=== PATIENT | male | born 1960 | race Two or more races ===

== ENCOUNTER 2021-09-07 19:40 | Inpatient (IN) | payer OTHER ==
[2021-09-07] MEDS ORDERED: SODIUM CHLORIDE 0.9% 1,000 ML IV STA (21:03)
--- NOTE | 2021-09-07 21:33 | XR ---
EXAMINATION TYPE: XR chest 2V DATE OF EXAM: 09/07/2021 COMPARISON: NONE HISTORY: Weakness TECHNIQUE: 2 view FINDINGS: There is a very large hiatal hernia. There is irregular 6 cm rounded infiltrate in the righ t midlung field. No heart failure seen. No pleural effusion. There are no hilar masses. No mediastina l adenopathy. IMPRESSION: Irregular large infiltrate in the right midlung is probably in the superior segment of th e right lower lobe. Follow-up is recommended to show clearing.
--- NOTE | 2021-09-07 22:22 | ED ---
Weakness HPI - General Source: patient Mode of arrival: ambulatory Limitations: no limitations <Jadyn Mcrae - Last Filed: 09/07/21 23:01> - General Source: RN notes reviewed, old records reviewed - History of Present Illness MD Complaint: generalized weakness, lack of energy, difficulty walking -: days(s) Location: generalized Severity: moderate Severity scale (1-10): 4 Consistency: constant Improves with: none Worsens with: none Context: recent illness, history of similar Associated Symptoms: loss of appetite, nausea/vomiting <Adis Velasco - Last Filed: 09/08/21 00:15> - General Chief complaint: Weakness Stated complaint: Weakness Time Seen by Provider: 09/07/21 20:53 - History of Present Illness Initial comments: Patient is a 60-year-old male presenting with chief complaint of generalized weakness. He also admits to fatigue, lack of appetite, and vague back pain. Patient's PCP ordered CT of the abdomen and pelvis on 08/31 which showed a large 9 cm exophytic solid renal mass strongly suggestive of malignancy, multiple lung nodules suggestive of metastatic disease, liver lesions. His spouse states that they have been trying to get him appointments with oncology which has been extremely difficult. Patient has been having increased weakness, decided to s [place] evaluation in the ER tonight. Denies chest pain, shortness of breath, fever, chills, nausea, vomiting, abdominal pain, dizziness, vision or hearing changes, palpitations, numbness, tingling, localized weakness, dysuria, hematuria, urgency, frequency. (Jadyn Mcrae) - Related Data Home Medications Medication Instructions Recorded Confirmed Cyclobenzaprine [Flexeril] 10 mg PO TID PRN 09/07/21 09/07/21 Omeprazole 20 mg PO DAILY 09/07/21 09/07/21 Ondansetron [Zofran] 4 mg PO Q8HR PRN 09/07/21 09/07/21 Valsartan/Hydrochlorothiazide 1 tab PO DAILY 09/07/21 09/07/21 [Valsartan-Hctz 160-25 mg Tab] traMADol HCL 50 mg PO TID 09/07/21 09/07/21 Allergies Allergy/AdvReac Type Severity Reaction Status Date / Time No Known Allergies Allergy Verified 07/06/22 21:49 Review of Systems ROS Other: All systems not noted in ROS Statement are negative. <Jadyn Mcrae - Last Filed: 09/07/21 23:01> ROS Other: All systems not noted in ROS Statement are negative. <Adis Velasco - Last Filed: 09/08/21 00:15> ROS Statement: Those systems with pertinent positive or pertinent negative responses have been documented in the HPI. Past Medical History Past Medical History: GERD/Reflux, Hypertension History of Any Multi-Drug Resistant Organisms: None Reported Past Surgical History: Orthopedic Surgery Additional Past Surgical History / Comment(s): left arm Past Psychological History: No Psychological Hx Reported Smoking Status: Never smoker Past Alcohol Use History: Rare Past Drug Use History: None Reported <Jadyn Mcrae - Last Filed: 09/07/21 23:01> General Exam Limitations: no limitations General appearance: alert, in no apparent distress Head exam: Present: atraumatic, normocephalic, normal inspection Eye exam: Present: normal appearance, EOMI. Absent: scleral icterus, periorbital swelling Neck exam: Present: normal inspection Respiratory exam: Present: normal lung sounds bilaterally. Absent: respiratory distress, wheezes, rales, rhonchi, stridor Cardiovascular Exam: Present: regular rate, normal rhythm, normal heart sounds. Absent: systolic murmur, diastolic murmur, rubs, gallop, clicks Neurological exam: Present: alert, oriented X3, CN II-XII intact Psychiatric exam: Present: normal affect, normal mood Skin exam: Present: warm, dry, intact, normal color. Absent: rash <Jadyn Mcrae - Last Filed: 09/07/21 23:01> General appearance: alert, in no apparent distress, lethargic, cachectic Head exam: Present: atraumatic, normocephalic, normal inspection Eye exam: Present: normal appearance, PERRL, EOMI. Absent: scleral icterus, conjunctival injection, periorbital swelling ENT exam: Present: normal exam, mucous membranes moist Neck exam: Present: normal inspection. Absent: tenderness, meningismus, lymphadenopathy Respiratory exam: Present: normal lung sounds bilaterally. Absent: respiratory distress, wheezes, rales, rhonchi, stridor Cardiovascular Exam: Present: regular rate, normal rhythm, normal heart sounds. Absent: systolic murmur, diastolic murmur, rubs, gallop, clicks GI/Abdominal exam: Present: soft, normal bowel sounds. Absent: distended, tenderness, guarding, rebound, rigid Extremities exam: Present: normal inspection, full ROM, normal capillary refill. Absent: tenderness, pedal edema, joint swelling, calf tenderness Back exam: Present: normal inspection Neurological exam: Present: alert, oriented X3, CN II-XII intact Psychiatric exam: Present: normal affect, normal mood Skin exam: Present: warm, dry, intact, normal color. Absent: rash <Adis Velasco - Last Filed: 09/08/21 00:15> Course <Adis Velasco - Last Filed: 09/08/21 00:15> Vital Signs 09/07/21 20:05 Temperature 98.4 F Pulse Rate 86 Respiratory 16 Rate Blood Pressure 86/62 O2 Sat by Pulse 97 Oximetry - Reevaluation(s) Reevaluation #1: 09/08/21 00:14 Medical records reviewed (Adis Velasco) Reevaluation #2: 09/08/21 00:14 Patient improvement with hydration (Adis Velasco) - Consultations Consultation #1: Spoke with sound physicians who agree to admit this patient (Adis Velasco) Medical Decision Making - Lab Data Result diagrams: 09/07/21 23:05 09/07/21 23:35 - Radiology Data Radiology results: report reviewed (Chest x-rays negative for acute disease), image reviewed <Adis Velasco - Last Filed: 09/08/21 00:15> - Medical Decision Making 63 male to the emergency department for evaluation patient presents today for evaluation of weakness dehydration new diagnosis of cancer without follow-up [facility] oncology. Patient [facility] facility for second opinion further evaluation monitoring (Adis Velasco) - Lab Data Lab Results 09/07/21 09/07/21 09/07/21 Range/Units 23:05 23:15 23:35 WBC 7.7 (3.8-10.6) k/uL RBC 3.25 L (4.30-5.90) m/uL Hgb 8.0 L (13.0-17.5) gm/dL Hct 25.6 L (39.0-53.0) % MCV 78.8 L (80.0-100.0) fL MCH 24.6 L (25.0-35.0) pg MCHC 31.2 (31.0-37.0) g/dL RDW 15.4 (11.5-15.5) % Plt Count 530 H (150-450) k/uL MPV 7.9 Neutrophils % 68 % Lymphocytes % 17 % Monocytes % 10 % Eosinophils % 2 % Basophils % 1 % Neutrophils # 5.2 (1.3-7.7) k/uL Lymphocytes # 1.3 (1.0-4.8) k/uL Monocytes # 0.8 (0-1.0) k/uL Eosinophils # 0.1 (0-0.7) k/uL Basophils # 0.1 (0-0.2) k/uL Hypochromasia Marked PT 11.7 (9.0-12.0) sec INR 1.1 (<1.2) APTT 21.8 L (22.0-30.0) sec Sodium 133 L (137-145) mmol/L Potassium 5.3 H (3.5-5.1) mmol/L Chloride 100 (98-107) mmol/L Carbon Dioxide 24 (22-30) mmol/L Anion Gap 9 mmol/L BUN 54 H (9-20) mg/dL Creatinine 2.99 H (0.66-1.25) mg/dL Est GFR (CKD-EPI)AfAm 25 (>60 ml/min/1.73 sqM) Est GFR (CKD-EPI)NonAf 22 (>60 ml/min/1.73 sqM) Glucose 104 H (74-99) mg/dL Plasma Lactic Acid Garret (0.7-2.0) mmol/L Calcium 12.7 H (8.4-10.2) mg/dL Phosphorus 4.4 (2.5-4.5) mg/dL Magnesium 2.4 H (1.6-2.3) mg/dL Total Bilirubin 0.4 (0.2-1.3) mg/dL AST 21 (17-59) U/L ALT 21 (4-49) U/L Alkaline Phosphatase 116 (38-126) U/L Total Protein 6.8 (6.3-8.2) g/dL Albumin 3.3 L (3.5-5.0) g/dL 09/07/21 Range/Units 23:35 WBC (3.8-10.6) k/uL RBC (4.30-5.90) m/uL Hgb (13.0-17.5) gm/dL Hct (39.0-53.0) % MCV (80.0-100.0) fL MCH (25.0-35.0) pg MCHC (31.0-37.0) g/dL RDW (11.5-15.5) % Plt Count (150-450) k/uL MPV Neutrophils % % Lymphocytes % % Monocytes % % Eosinophils % % Basophils % % Neutrophils # (1.3-7.7) k/uL Lymphocytes # (1.0-4.8) k/uL Monocytes # (0-1.0) k/uL Eosinophils # (0-0.7) k/uL Basophils # (0-0.2) k/uL Hypochromasia PT (9.0-12.0) sec INR (<1.2) APTT (22.0-30.0) sec Sodium (137-145) mmol/L Potassium (3.5-5.1) mmol/L Chloride (98-107) mmol/L Carbon Dioxide (22-30) mmol/L Anion Gap mmol/L BUN (9-20) mg/dL Creatinine (0.66-1.25) mg/dL Est GFR (CKD-EPI)AfAm (>60 ml/min/1.73 sqM) Est GFR (CKD-EPI)NonAf (>60 ml/min/1.73 sqM) Glucose (74-99) mg/dL Plasma Lactic Acid Garret 0.9 (0.7-2.0) mmol/L Calcium (8.4-10.2) mg/dL Phosphorus (2.5-4.5) mg/dL Magnesium (1.6-2.3) mg/dL Total Bilirubin (0.2-1.3) mg/dL AST (17-59) U/L ALT (4-49) U/L Alkaline Phosphatase (38-126) U/L Total Protein (6.3-8.2) g/dL Albumin (3.5-5.0) g/dL Disposition <Jadyn Mcrae - Last Filed: 09/07/21 23:01> Is patient prescribed a controlled substance at d/c from ED?: No <Adis Velasco - Last Filed: 09/08/21 00:15> Clinical Impression: Dehydration, Weakness, Hyperkalemia Narrative: New Diagnosis CA (liver/renal) (Adis Velasco) Disposition: ADMITTED IP TO THIS HOSP Condition: Fair Referrals: None,Stated [Primary Care Provider] - 1-2 days
[2021-09-07 23:41] LABS: Basophils # (A) 0.1 k/uL (0-0.2); Basophils % (A) 1 %; Eosinophils # (A) 0.1 k/uL (0-0.7); Eosinophils % (A) 2 %; HCT 25.6 % (39.0-53.0); Hypochromasia Marked; Lymphocytes # (A) 1.3 k/uL (1.0-4.8); Lymphocytes % (A) 17 %; MCH 24.6 pg (25.0-35.0); MCHC 31.2 g/dL (31.0-37.0); MCV 78.8 fL (80.0-100.0); Mean Platelet Volume 7.9; Monocytes # (A) 0.8 k/uL (0-1.0); Monocytes % (A) 10 %; Neutrophils # (A) 5.2 k/uL (1.3-7.7); Neutrophils % (A) 68 %; Platelet Count 530 k/uL (150-450); RBC 3.25 m/uL (4.30-5.90); RDW 15.4 % (11.5-15.5); WBC 7.7 k/uL (3.8-10.6)
[2021-09-07 23:59] LABS: Albumin 3.3 g/dL (3.5-5.0); Calcium 12.7 mg/dL (8.4-10.2); Magnesium 2.4 mg/dL (1.6-2.3); Phosphorus 4.4 mg/dL (2.5-4.5); Potassium 5.3 mmol/L (3.5-5.1); Total Bilirubin 0.4 mg/dL (0.2-1.3); Total Protein 6.8 g/dL (6.3-8.2)
[2021-09-08] MEDS ORDERED: SODIUM CHLORIDE 0.9% 1,000 ML IV STA (00:02)
[2021-09-08 00:04] LABS: INR 1.1 (<1.2); Prothrombin Time 11.7 sec (9.0-12.0)
[2021-09-08 00:06] LABS: Partial Thromboplastin Time 21.8 sec (22.0-30.0)
[2021-09-08] MEDS ORDERED: ONDANSETRON 4 MG/2 ML VIAL IVP PRN (00:07)
[2021-09-08] MEDS ORDERED: NALOXONE 0.4 MG/ML 1 ML VIAL IV PRN (00:07)
[2021-09-08] MEDS: SODIUM CHLORIDE 0.9% 1,000 ML IV SCH ×4 (04:24→23:22)
--- NOTE | 2021-09-08 04:41 | P.HPIM ---
History of Present Illness H&P Date: 09/08/21 The patient is a 60-year-old male with a history of anemia and hemochromatosis who presents to the emergency room with complaints of weakness and weight loss. History supplemented by the at the bedside. The patient reports that he initially developed a chronic right lower back pain 6 months ago. He didn't think much of it until he began losing weight and feeling not quite like himself. He saw several clinicians who were unable to pinpoint the exact etiology. He subsequently was seen at [facility] on 08/31/[address] abdomen and pelvis revealed a large 9 cm exophytic solid right renal mass strongly suggestive of malignancy along with metastatic lung nodules and multiple small liver lesions. The patient was subsequently discharged and advised to follow-up with an oncologist. The patient's was concerned as he continued to feel weak and was unable to partake in his ADLs. Patient reports losing 25 pounds of weight in the past 4-5 months as well as a nonproductive cough. He denies experiencing chest discomfort, shortness of breath, fever, nausea, vomiting, abdominal pain, diarrhea. Laboratory evaluation in the emergency room was remarkable for hemoglobin 8.0, MCV 78.8, platelet count 530, sodium 133, potassium 5.3, BUN 54, creatinine 2.99, and calcium level 2.7. Review of systems: Pertinent positives and negatives as discussed in HPI, a complete review of systems was performed and all other systems are negative. Physical examination: General: non toxic, no distress, appears at stated age, normal weight Derm: no unusual rashes/lesions, warm Head: atraumatic, normocephalic, symmetric Eyes: EOMI, no lid lag, anicteric sclera, pupils equal round reactive to light ENT: Nose and ears atraumatic Neck: No cervical lymphadenopathy, trachea midline, supple Mouth: no lip lesion, mucus membranes moist Cardiovascular: S1S2 reg, no murmur, positive dorsalis pedis pulse bilateral, no edema Lungs: CTA bilateral, no rhonchi, no rales, no accessory muscle use Abdominal: soft, nontender to palpation, no guarding Ext: muscle strength 5 out of 5 in all 4 extremities grossly, no gross muscle atrophy, no contractures, Neuro: CN II-XI grossly intact, no gross focal neuro deficits Psych: Alert, oriented, appropriate affect Assessment/plan Suspected metastatic renal malignancy -Oncology consult for guidance regarding biopsy Kidney injury, acute versus chronic -Continue with IV fluids and monitor for now Normocytic anemia, chronic -No baseline available for comparison Hypercalcemia, 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 CODE STATUS: Full Code Discussed with: Patient Anticipated discharge date: 09/[address]: Home Past Medical History Past Medical History: GERD/Reflux, Hypertension History of Any Multi-Drug Resistant Organisms: None Reported Past Surgical History: Orthopedic Surgery Additional Past Surgical History / Comment(s): left arm Past Anesthesia/Blood Transfusion Reactions: No Reported Reaction Past Psychological History: No Psychological Hx Reported Smoking Status: Never smoker Past Alcohol Use History: Rare Past Drug Use History: None Reported - Past Family History Mother Family Medical History: Hypertension Medications and Allergies Home Medications Medication Instructions Recorded Confirmed Type Cyclobenzaprine [Flexeril] 10 mg PO TID PRN 09/07/21 09/07/21 History Omeprazole 20 mg PO DAILY 09/07/21 09/07/21 History Ondansetron [Zofran] 4 mg PO Q8HR PRN 09/07/21 09/07/21 History Valsartan/Hydrochlorothiazide 1 tab PO DAILY 09/07/21 09/07/21 History [Valsartan-Hctz 160-25 mg Tab] traMADol HCL 50 mg PO TID 09/07/21 09/07/21 History Allergies Allergy/AdvReac Type Severity Reaction Status Date / Time No Known Allergies Allergy Verified 09/07/21 21:49 Physical Exam Vitals: Vital Signs Temp Pulse Pulse Resp BP BP Pulse Ox 09/08/21 01:56 98.7 F 94 16 103/64 94 L 09/08/21 00:00 76 93/56 09/07/21 22:00 70 92/64 09/07/21 20:05 98.4 F 86 16 86/62 97 Intake and Output 09/07/21 09/07/21 09/08/21 14:59 22:59 06:59 Other: Voiding Method Toilet Weight 88.451 kg 88.451 kg Results CBC & Chem 7: 09/07/21 23:05 09/07/21 23:35 Labs: Abnormal Lab Results - Last 24 Hours (Table) 09/07/21 09/07/21 09/07/21 Range/Units 23:05 23:15 23:35 RBC 3.25 L (4.30-5.90) m/uL Hgb 8.0 L (13.0-17.5) gm/dL Hct 25.6 L (39.0-53.0) % MCV 78.8 L (80.0-100.0) fL MCH 24.6 L (25.0-35.0) pg Plt Count 530 H (150-450) k/uL APTT 21.8 L (22.0-30.0) sec Sodium 133 L (137-145) mmol/L Potassium 5.3 H (3.5-5.1) mmol/L BUN 54 H (9-20) mg/dL Creatinine 2.99 H (0.66-1.25) mg/dL Glucose 104 H (74-99) mg/dL Calcium 12.7 H (8.4-10.2) mg/dL Magnesium 2.4 H (1.6-2.3) mg/dL Albumin 3.3 L (3.5-5.0) g/dL Thrombosis Risk Factor Assmnt - Choose All That Apply Any of the Below Risk Factors Present?: Yes Each Risk Factor Represents 2 Points: Age 61-74 years, Malignancy Thrombosis Risk Factor Assessment Total Risk Factor Score: 4 Thrombosis Risk Factor Assessment Level: Moderate Risk
[2021-09-08 08:11] LABS: ALT 17 U/L (4-49); AST 17 U/L (17-59); African American GFR (CKD) 33 (>60 ml/min/1.73 sqM); Albumin 2.9 g/dL (3.5-5.0); Albumin/Globulin Ratio 0.9; Alkaline Phosphatase 106 U/L (38-126); Anion Gap 7 mmol/L; Blood Urea Nitrogen 45 mg/dL (9-20); Calcium 12.1 mg/dL (8.4-10.2); Carbon Dioxide 23 mmol/L (22-30); Chloride 108 mmol/L (98-107); Globulin 3.2 g/dL; Glucose 91 mg/dL (74-99); Magnesium 2.1 mg/dL (1.6-2.3); Non-African American GFR(CKD) 29 (>60 ml/min/1.73 sqM); Potassium 4.7 mmol/L (3.5-5.1); Sodium 138 mmol/L (137-145); Total Bilirubin 0.3 mg/dL (0.2-1.3); Total Protein 6.1 g/dL (6.3-8.2)
[2021-09-08] MEDS: ENOXAPARIN 40 MG/0.4 ML SYRINGE SQ SCH (09:44)
[2021-09-08] MEDS: PANTOPRAZOLE 40 MG/10 ML VIAL IV SCH (10:27)
[2021-09-08] MEDS: IOPAMIDOL CONTRAST (ORAL USE) VIAL PO PRN ×2 (11:15→12:14)
--- NOTE | 2021-09-08 11:19 | P.PN ---
Subjective Progress Note Date: 09/08/21 Principal diagnosis: acute kidney injury Patient is a 60-year-old male with anemia, GERD, HTN and recently discovered renal mass who presents to the emergency room with complaints of weakness and weight loss. He was seen at [place] on 08/31/[address] abdomen and pelvis revealed a large 9 cm exophytic solid right renal mass strongly suggestive of malignancy along with metastatic lung nodules and multiple small liver lesions. They had contacted Dr. French and had a liver MRI set up for next week. Laboratory evaluation in the emergency room was remarkable for hemoglobin 8.0, MCV 78.8, platelet count 530, sodium 133, potassium 5.3, BUN 54, creatinine 2.99, and calcium level 12.7. He was stared on IVF and arrangement were made for admission. Patient seen and examined at bedside with present. He complains of weakness and fatigue. He conitnues to have low back pain. We discussed that they will see nephrology, hematology, and urology. They asked if his MRI liver would be moved up and I stated that would be up to oncology. I did let them know that interventional radiology had previously said not avaiable for renal bx until 09/12. General: nontoxic, no distress, appears at stated age Derm: warm, dry Head: atraumatic, normocephalic, symmetric Eyes: EOMI, no lid lag, anicteric sclera Mouth: no lip lesion, mucus membranes moist Cardiovascular: S1S2 reg, no murmur, positive posterior tibial pulse bilateral, Lungs: CTA bilateral, no rhonchi, no rales , no accessory muscle use Abdominal: soft, nontender to palpation, no guarding, no appreciable organomegaly Ext: no gross muscle atrophy, no edema, no contractures Neuro: CN II-XI grossly intact, no focal neuro deficits Psych: Alert, oriented, appropriate affect Assessment/plan: Right exophetic renal lesion Lung masses Liver nodules - CT results available on physical chart - await oncology recs - consult urology - likely will need biopsy as inpatient vs outpatient [facility], hyperkalemia, and hypercalcemia - correct calcium 13.3, unlikely parathyroid mediated, check PTH - nephrology recs - IVF - avoid nephrotoxic agents - if calcium remians elevated in AM Anemia, thrombocytosis - check irons studies Objective - Vital Signs Vital signs: Vital Signs Temp 97.9 F 09/08/21 07:02 Pulse 75 09/08/21 07:02 Resp 18 09/08/21 07:02 BP 93/53 09/08/21 07:02 Pulse Ox 91 L 09/08/21 05:57 FiO2 Intake & Output 09/07/21 09/08/21 09/08/21 18:59 06:59 18:59 Intake Total 590 Balance 590 Weight 88.451 kg Intake: Oral 590 Other: Voiding Method Toilet Toilet # Voids 2 - Labs CBC & Chem 7: 09/07/21 23:05 09/08/21 07:09 Labs: Abnormal Lab Results - Last 24 Hours (Table) 09/07/21 09/07/21 09/07/21 Range/Units 23:05 23:15 23:35 RBC 3.25 L (4.30-5.90) m/uL Hgb 8.0 L (13.0-17.5) gm/dL Hct 25.6 L (39.0-53.0) % MCV 78.8 L (80.0-100.0) fL MCH 24.6 L (25.0-35.0) pg Plt Count 530 H (150-450) k/uL APTT 21.8 L (22.0-30.0) sec Sodium 133 L (137-145) mmol/L Potassium 5.3 H (3.5-5.1) mmol/L Chloride (98-107) mmol/L BUN 54 H (9-20) mg/dL Creatinine 2.99 H (0.66-1.25) mg/dL Glucose 104 H (74-99) mg/dL Calcium 12.7 H (8.4-10.2) mg/dL Magnesium 2.4 H (1.6-2.3) mg/dL Total Protein (6.3-8.2) g/dL Albumin 3.3 L (3.5-5.0) g/dL 09/08/21 Range/Units 07:09 RBC (4.30-5.90) m/uL Hgb (13.0-17.5) gm/dL Hct (39.0-53.0) % MCV (80.0-100.0) fL MCH (25.0-35.0) pg Plt Count (150-450) k/uL APTT (22.0-30.0) sec Sodium (137-145) mmol/L Potassium (3.5-5.1) mmol/L Chloride 108 H (98-107) mmol/L BUN 45 H (9-20) mg/dL Creatinine 2.36 H (0.66-1.25) mg/dL Glucose (74-99) mg/dL Calcium 12.1 H (8.4-10.2) mg/dL Magnesium (1.6-2.3) mg/dL Total Protein 6.1 L (6.3-8.2) g/dL Albumin 2.9 L (3.5-5.0) g/dL
--- NOTE | 2021-09-08 11:26 | P.NPCON ---
History of Present Illness - Reason for Consult acute renal failure - History of Present Illness Reason for consultation: Acute kidney injury History of present illness: Patient is a 60-year-old male seen in renal consultation for acute kidney injury. Patient's creatinine on admission was 2.99 and is 2.36 today. Unknown baseline renal function. is present at bedside. Patient is hard of hearing but is alert and oriented. He denies any prior history of kidney disease. Patient states he's been feeling weak for the last 2 weeks or so. His oral intake has also been poor. He has history of hypertension was taking losartan and hydrochlorothiazide at home. He is currently receiving IV fluids. Patient states he had a CAT scan done recently which was concerning for malignancy. Patient has not seen oncology yet. He denies hematuria or dysuria. He states he has lost about 25 pounds in the last 6 months. Denies regular use of nonsteroidals. No fever or chills. No chest pain or shortness of breath. No edema. No history of diabetes. Denies family history of renal disease. Denies taking any calcium or vitamin D supplementation. Calcium was 12.7 on admission and is 12.1 today. Vital signs are stable. General: Awake. No acute distress. HEENT: Head exam is unremarkable. LUNGS: Breath sounds decreased. HEART: Rate and Rhythm are regular. ABDOMEN: Soft, no distention. EXTREMITITES: No edema. Past Medical History Past Medical History: GERD/Reflux, Hypertension History of Any Multi-Drug Resistant Organisms: None Reported Past Surgical History: Orthopedic Surgery Additional Past Surgical History / Comment(s): left arm Past Anesthesia/Blood Transfusion Reactions: No Reported Reaction Past Psychological History: No Psychological Hx Reported Smoking Status: Never smoker Past Alcohol Use History: Rare Past Drug Use History: None Reported - Past Family History Mother Family Medical History: Hypertension Medications and Allergies Home Medications Medication Instructions Recorded Confirmed Type Cyclobenzaprine [Flexeril] 10 mg PO TID PRN 09/07/21 09/07/21 History Omeprazole 20 mg PO DAILY 09/07/21 09/07/21 History Ondansetron [Zofran] 4 mg PO Q8HR PRN 09/07/21 09/07/21 History Valsartan/Hydrochlorothiazide 1 tab PO DAILY 09/07/21 09/07/21 History [Valsartan-Hctz 160-25 mg Tab] traMADol HCL 50 mg PO TID 09/07/21 09/07/21 History Allergies Allergy/AdvReac Type Severity Reaction Status Date / Time No Known Allergies Allergy Verified 09/07/21 21:49 Physical Exam Vitals: Vital Signs Temp Pulse Pulse Resp BP BP Pulse Ox 09/08/21 07:02 97.9 F 75 18 93/53 09/08/21 05:57 97.8 F 75 16 91/59 91 L 09/08/21 01:56 98.7 F 94 16 103/64 94 L 09/08/21 00:00 76 93/56 09/07/21 22:00 70 92/64 09/07/21 20:05 98.4 F 86 16 86/62 97 Intake and Output 09/07/21 09/08/21 09/08/21 22:59 06:59 14:59 Intake Total 590 Balance 590 Intake: Oral 590 Other: Voiding Method Toilet Toilet # Voids 2 Weight 88.451 kg 88.451 kg Results - Lab Results Most recent lab results Calcium 12.1 mg/dL (8.4-10.2) H 09/08/21 07:09 Phosphorus 4.4 mg/dL (2.5-4.5) 09/07/21 23:35 Magnesium 2.1 mg/dL (1.6-2.3) 09/08/21 07:09 09/07/21 23:05 09/08/21 07:09 Assessment and Plan Plan: Assessment: 1. Acute kidney injury mostly prerenal secondary to hypotension, ARB-HCTZ, and hypercalcemia. Creatinine was 2.19 on admission and is 2.36 today. Unknown baseline renal function. 2. Hypercalcemia secondary to hypovolemia, hctz and underlying malignancy. 3. Hypovolemic hyponatremia improved with IV hydration. 4. Right renal mass with metastatic lung nodules and liver lesions noted on CAT scan done 08/31/2021. 5. Benign hypertension. Blood pressure currently on the lower side. Plan: Maintain IV fluids. 4 mg IV zoledronic acid today. Hold antihypertensives and diuretics. Check urinalysis and renal ultrasound. Avoid nephrotoxins. Check further workup for hypercalcemia. Thank you for the consultation. I will continue to follow the patient with you during his hospital stay.
[2021-09-08 11:56] LABS: Reticulocyte % 1.6 % (0.5-2.0)
[2021-09-08] MEDS ORDERED: ZOLEDRONIC ACID 4 MG in SODIUM CHLORIDE 0.9% 100 ML IV ONE (12:00)
[2021-09-08 12:15] LABS: LDH 263 U/L (313-618)
[2021-09-08 13:38] LABS: Appearance,Urine Clear (Clear); Bilirubin,Urine Negative (Negative); Blood,Urine Negative (Negative); Color,Urine Light Yellow; Glucose,Urine (UA) Negative (Negative); Ketones,Urine Negative (Negative); Leukocyte Esterase,Urine Negative (Negative); Nitrite,Urine Negative (Negative); Protein,Urine Negative (Negative); Specific Gravity,Urine 1.007 (1.001-1.035); Urobilinogen,Urine <2.0 mg/dL (<2.0)
--- NOTE | 2021-09-08 14:14 | CT ---
EXAMINATION TYPE: CT ChestAbdPelvis wo con DATE OF EXAM: 09/08/2021 INDICATION: Restaging suspected malignancy of right kidney COMPARISON: None CT DLP: 854.7 mGycm CONTRAST: Performed with Oral Contrast TECHNIQUE: Axial images at 5 mm thick sections. Reconstructed images in the coronal plane. Delayed images through the kidneys. FINDINGS: CT CHEST: The inferior portion of the thyroid appears enlarged and hypodense. Additional evaluation with thyroi d ultrasound is recommended. There is a 0.9 cm irregular density in the superior anterior left lung. A 0.9 cm nodules in the poste rior medial right apex. Pleural-based thickenings along the left mediastinal border near the apex. I rregular bordered lung masses in the right perihilar region measuring 6.0 x 3.8 cm. Some posterior so ft tissue density measuring 4.1 x 2.0 cm posterior right lung. A 1.1 cm nodules in the left posterior medial lung. There are multiple approximately 1 cm nodules in the periphery of the bilateral lung fi elds. Findings are suspicious for primary and/or metastatic. No enlarged mediastinal or hilar adenopathy is evident. Small right pleural effusion is present. Mini mal left pleural effusion is present. There is a large herniation of stomach into the posterior thora x. The ascending aorta diameter at the level of the main pulmonary artery is 3.8 cm. The main pulmonary artery diameter at the bifurcation is 3.[address] ABDOMEN: Liver: Unremarkable Spleen: Normal Pancreas: Normal Adrenal glands: The adrenal glands are normal. Gallbladder: Normal Kidneys: There is an 8.3 x 10.7 cm mass superior pole right kidney bases contain some internal calcif ication.. No hydronephrosis is present. There may be a superior pole left renal cyst measuring 3.3 cm and 17 Hounsfield units. Dromedary hump should be considered on the left. Aorta: Vascular calcification is within the aorta. Inferior vena cava: Normal. CT PELVIS: Loops of bowel within the abdomen and pelvis are normal. Study unilateral contrast limiting bowel evaluate Appendix: Normal as visualized. Urinary bladder: Normal. Genitourinary structures: Prostate appears normal. Osseous structures: No suspicious lytic or sclerotic lesions. IMPRESSIONS: 1. Right lung mass with multiple bilateral pulmonary nodules suspicious for neoplasm. 2. Large superior pole right renal mass compatible with neoplasm 3. Small bilateral pleural effusions
[2021-09-08] MEDS ORDERED: HYDROmorphone 0.5 MG/0.5 ML SYRINGE IVP PRN (14:36)
--- NOTE | 2021-09-08 14:41 | P.CONS ---
History of Present Illness - Reason for Consult Consult date: 09/08/21 Metastatic Cancer Requesting physician: Adis Velasco - Chief Complaint Weakness - History of Present Illness Patient is a 60 year old male who has not been feeling his normal self and in his normal health over the past few months. Per the medical record he has seen multiple physicians and was without a clear understanding of the problem. Apparently he was most recently seen in [place] and CT imaging revealed concern of renal mass and likely metastatic disease. Records from 08.04.21 reveal a creatinine 1.2, on arrival 2.9. admits he has ahd an unintentional 25-30 pound weight loss over the oast 3 months. He is hypercalcemic. No known biopsy proven malignancy has been performed. He was set up to see us in the office for first patient evaluation close to tend of month, however patient is progressively getting weaker therefore he was brought to [facility] for [facility] evaluation. CT scans without contrast revealed picture of widespread metastatic disease consistent with cancer (likely lung or renal primary). Recent GI evaluation Dr. Jaramillo in [place] was negative per . There is a large right hilar mass that could be targeted for biopsy, Consult placed for Pulmonology regarding best approach. Lower back pain with right leg numbness and sciatic like pain, mild weakness. Patient has not moved bowels in over a week, he is passing edgard. Minimal PO intake and not moving much. Miralax and colace without relief. Increased bowel regimen: fleets, lactulose, and senna-s BID orders placed. Once renal function improved MRI lumbar spine and Brain Review of Systems ROS unobtainable: due to mental status All systems: negative Past Medical History Past Medical History: GERD/Reflux, Hypertension History of Any Multi-Drug Resistant Organisms: None Reported Past Surgical History: Orthopedic Surgery Additional Past Surgical History / Comment(s): left arm Past Anesthesia/Blood Transfusion Reactions: No Reported Reaction Past Psychological History: No Psychological Hx Reported Smoking Status: Never smoker Past Alcohol Use History: Rare Past Drug Use History: None Reported - Past Family History Mother Family Medical History: Hypertension Medications and Allergies Home Medications Medication Instructions Recorded Confirmed Type Cyclobenzaprine [Flexeril] 10 mg PO TID PRN 09/07/21 09/07/21 History Omeprazole 20 mg PO DAILY 09/07/21 09/07/21 History Ondansetron [Zofran] 4 mg PO Q8HR PRN 09/07/21 09/07/21 History Valsartan/Hydrochlorothiazide 1 tab PO DAILY 09/07/21 09/07/21 History [Valsartan-Hctz 160-25 mg Tab] traMADol HCL 50 mg PO TID 09/07/21 09/07/21 History Allergies Allergy/AdvReac Type Severity Reaction Status Date / Time No Known Allergies Allergy Verified 09/07/21 21:49 Physical Exam Vitals: Vital Signs Temp Pulse Pulse Resp BP BP Pulse Ox 09/08/21 07:02 97.9 F 75 18 93/53 09/08/21 05:57 97.8 F 75 16 91/59 91 L 09/08/21 01:56 98.7 F 94 16 103/64 94 L 09/08/21 00:00 76 93/56 09/07/21 22:00 70 92/64 09/07/21 20:05 98.4 F 86 16 86/62 97 Intake and Output 09/07/21 09/08/21 09/08/21 22:59 06:59 14:59 Intake Total 590 Balance 590 Intake: Oral 590 Other: Voiding Method Toilet Toilet # Voids 2 Weight 88.451 kg 88.451 kg - Constitutional General appearance: cooperative - EENT Eyes: EOMI ENT: NA/AT - Respiratory Respiratory: bilateral: diminished - Cardiovascular Rhythm: regularly irregular - Gastrointestinal General gastrointestinal: soft - Integumentary Integumentary: pale - Musculoskeletal Musculoskeletal: generalized weakness Results CBC & Chem 7: 09/07/21 23:05 09/08/21 07:09 Labs: Abnormal Lab Results - Last 24 Hours (Table) 09/07/21 09/07/21 09/07/21 Range/Units 23:05 23:15 23:35 RBC 3.25 L (4.30-5.90) m/uL Hgb 8.0 L (13.0-17.5) gm/dL Hct 25.6 L (39.0-53.0) % MCV 78.8 L (80.0-100.0) fL MCH 24.6 L (25.0-35.0) pg Plt Count 530 H (150-450) k/uL APTT 21.8 L (22.0-30.0) sec Sodium 133 L (137-145) mmol/L Potassium 5.3 H (3.5-5.1) mmol/L Chloride (98-107) mmol/L BUN 54 H (9-20) mg/dL Creatinine 2.99 H (0.66-1.25) mg/dL Glucose 104 H (74-99) mg/dL Calcium 12.7 H (8.4-10.2) mg/dL Magnesium 2.4 H (1.6-2.3) mg/dL Total Protein (6.3-8.2) g/dL Albumin 3.3 L (3.5-5.0) g/dL 09/08/21 Range/Units 07:09 RBC (4.30-5.90) m/uL Hgb (13.0-17.5) gm/dL Hct (39.0-53.0) % MCV (80.0-100.0) fL MCH (25.0-35.0) pg Plt Count (150-450) k/uL APTT (22.0-30.0) sec Sodium (137-145) mmol/L Potassium (3.5-5.1) mmol/L Chloride 108 H (98-107) mmol/L BUN 45 H (9-20) mg/dL Creatinine 2.36 H (0.66-1.25) mg/dL Glucose (74-99) mg/dL Calcium 12.1 H (8.4-10.2) mg/dL Magnesium (1.6-2.3) mg/dL Total Protein 6.1 L (6.3-8.2) g/dL Albumin 2.9 L (3.5-5.0) g/dL CT scan - abdomen: report reviewed CT scan - chest: report reviewed CT scan - pelvis: report reviewed Assessment and Plan (1) Microcytic anemia Current Visit: Yes Status: Acute Code(s): D50.9 - IRON DEFICIENCY ANEMIA, UNSPECIFIED SNOMED Code(s): 398982056 (2) Hypercalcemia Narrative/Plan: - Dr Soto, nephrology, has been consulted. hypercalcemia probable related to malignancy and dehydration, continue iV Fluids. - Defer Aredia infusion over zometa due to renal insuffieincy Current Visit: Yes Status: Acute Code(s): E83.52 - HYPERCALCEMIA SNOMED Code(s): 38636974 (3) Acute kidney insufficiency Narrative/Plan: Nephrology to evaluate, appears new, 08/04/21 Creatinine 1.2 Current Visit: Yes Status: Acute Code(s): N28.9 - DISORDER OF KIDNEY AND U RETER, UNSPECIFIED SNOMED Code(s): 716543825 (4) Unintentional weight loss Narrative/Plan: >25lb Current Visit: Yes Status: Acute Code(s): R63.4 - ABNORMAL WEIGHT LOSS SNOMED Code(s): 385690724 Plan: CT Chest/Abd/Pelvis with PO only contrast Bone Scan GOal is to evaluate for potential biopsy site Anemia and hypercalcemia work-up CT scans without contrast revealed picture of widespread metastatic disease consistent with cancer (likely lung or renal primary). Recent GI evaluation Dr. Jaramillo in [place] was negative per . There is a large right hilar mass that could be targeted for biopsy, Consult placed for Pulmonology regarding best approach. Lower back pain with right leg numbness and sciatic like pain, mild weakness. Patient has not moved bowels in over a week, he is passing edgard. Minimal PO intake and not moving much. Miralax and colace without relief. Increased bowel regimen: fleets, lactulose, and senna-s BID orders placed. Once renal function improved MRI lumbar spine and Brain Discussed with patient, , nursing nephro and primary teams
[2021-09-08] MEDS ORDERED: NA PHOS,M-B/NA PHOS,DI-BA 133 ML ENEMA RECTAL ONE (15:00)
--- NOTE | 2021-09-08 16:58 | P.GSCN ---
History of Present Illness Consult date: 09/08/21 Reason for Consult: Right-sided renal mass History of present illness: This is a 60-year-old male admitted to the hospital with a 10.7 cm renal mass, with evidence of widespread pulmonary nodules, and possible secondary lung mass. He's been having worsening fatigue, weight loss the last couple months. Was recently seen at [facility], [place] underwent a CT that showed the evidence of the renal mass with multiple pulmonary nodules and hypodense liver lesions. advised to follow up with oncology as an outpatient, but presented back to the hospital due to the worsening fatigue. He's been also complaining of low back pain with numbness in the lower extremity. Denies any gross hematuria or any flank pain. No family history of renal malignancy. Denies any voiding issues at baseline, no previous renal surgeries. Review of Systems - Constitutional Reports fatigue, Reports lethargy, Reports weakness, Reports weight loss - EENT Ears, nose, mouth and throat: Denies dysphagia - Cardiovascular Denies chest pain, Denies shortness of breath - Respiratory Denies cough, Denies 7 - Gastrointestinal Reports abdominal pain - Genitourinary Denies dysuria, Denies hematuria - Musculoskeletal Reports low back pain, Reports muscle weakness Past Medical History Past Medical History: GERD/Reflux, Hypertension History of Any Multi-Drug Resistant Organisms: None Reported Past Surgical History: Orthopedic Surgery Additional Past Surgical History / Comment(s): left arm Past Anesthesia/Blood Transfusion Reactions: No Reported Reaction Past Psychological History: No Psychological Hx Reported Smoking Status: Never smoker Past Alcohol Use History: Rare Past Drug Use History: None Reported - Past Family History Mother Family Medical History: Hypertension Medications and Allergies Home Medications Medication Instructions Recorded Confirmed Type Cyclobenzaprine [Flexeril] 10 mg PO TID PRN 09/07/21 09/07/21 History Omeprazole 20 mg PO DAILY 09/07/21 09/07/21 History Ondansetron [Zofran] 4 mg PO Q8HR PRN 09/07/21 09/07/21 History Valsartan/Hydrochlorothiazide 1 tab PO DAILY 09/07/21 09/07/21 History [Valsartan-Hctz 160-25 mg Tab] traMADol HCL 50 mg PO TID 09/07/21 09/07/21 History Allergies Allergy/AdvReac Type Severity Reaction Status Date / Time No Known Allergies Allergy Verified 09/07/21 21:49 Surgical - Exam Vital Signs Temp Pulse Resp BP Pulse Ox 98.4 F 86 16 86/62 97 09/07/21 20:05 09/07/21 20:05 09/07/21 20:05 09/07/21 20:05 09/07/21 20:05 - General no distress, moderate pain - Eyes normal ocular movement, no pale - ENT normal nares, normal mucosa - Respiratory normal expansion, normal respiratory effort - Abdomen Abdomen: soft, non tender - Psychiatric oriented to time, oriented to person, oriented to place Results - Labs 09/07/21 23:05 09/08/21 07:09 Abnormal Lab Results - Last 24 Hours (Table) 09/07/21 09/07/21 09/07/21 Range/Units 23:05 23:15 23:35 RBC 3.25 L (4.30-5.90) m/uL Hgb 8.0 L (13.0-17.5) gm/dL Hct 25.6 L (39.0-53.0) % MCV 78.8 L (80.0-100.0) fL MCH 24.6 L (25.0-35.0) pg Plt Count 530 H (150-450) k/uL APTT 21.8 L (22.0-30.0) sec Sodium 133 L (137-145) mmol/L Potassium 5.3 H (3.5-5.1) mmol/L Chloride (98-107) mmol/L BUN 54 H (9-20) mg/dL Creatinine 2.99 H (0.66-1.25) mg/dL Glucose 104 H (74-99) mg/dL Calcium 12.7 H (8.4-10.2) mg/dL Magnesium 2.4 H (1.6-2.3) mg/dL Lactate Dehydrogenase (313-618) U/L Total Protein (6.3-8.2) g/dL Albumin 3.3 L (3.5-5.0) g/dL 09/08/21 09/08/21 Range/Units 07:09 11:25 RBC (4.30-5.90) m/uL Hgb (13.0-17.5) gm/dL Hct (39.0-53.0) % MCV (80.0-100.0) fL MCH (25.0-35.0) pg Plt Count (150-450) k/uL APTT (22.0-30.0) sec Sodium (137-145) mmol/L Potassium (3.5-5.1) mmol/L Chloride 108 H (98-107) mmol/L BUN 45 H (9-20) mg/dL Creatinine 2.36 H (0.66-1.25) mg/dL Glucose (74-99) mg/dL Calcium 12.1 H (8.4-10.2) mg/dL Magnesium (1.6-2.3) mg/dL Lactate Dehydrogenase 263 L (313-618) U/L Total Protein 6.1 L (6.3-8.2) g/dL Albumin 2.9 L (3.5-5.0) g/dL Diabetes panel 09/07/21 09/08/21 Range/Units 23:35 07:09 Sodium 133 L 138 (137-145) mmol/L Potassium 5.3 H 4.7 (3.5-5.1) mmol/L Chloride 100 108 H (98-107) mmol/L Carbon Dioxide 24 23 (22-30) mmol/L BUN 54 H 45 H (9-20) mg/dL Creatinine 2.99 H 2.36 H (0.66-1.25) mg/dL Glucose 104 H 91 (74-99) mg/dL Calcium 12.7 H 12.1 H (8.4-10.2) mg/dL AST 21 17 (17-59) U/L ALT 21 17 (4-49) U/L Alkaline Phosphatase 116 106 (38-126) U/L Total Protein 6.8 6.1 L (6.3-8.2) g/dL Albumin 3.3 L 2.9 L (3.5-5.0) g/dL Thyroid panel 09/07/21 Range/Units 23:35 TSH 0.894 (0.465-4.680) mIU/L Calcium panel 09/07/21 09/08/21 Range/Units 23:35 07:09 Calcium 12.7 H 12.1 H (8.4-10.2) mg/dL Phosphorus 4.4 (2.5-4.5) mg/dL Albumin 3.3 L 2.9 L (3.5-5.0) g/dL Pituitary panel 09/07/21 09/08/21 Range/Units 23:35 07:09 Sodium 133 L 138 (137-145) mmol/L Potassium 5.3 H 4.7 (3.5-5.1) mmol/L Chloride 100 108 H (98-107) mmol/L Carbon Dioxide 24 23 (22-30) mmol/L BUN 54 H 45 H (9-20) mg/dL Creatinine 2.99 H 2.36 H (0.66-1.25) mg/dL Glucose 104 H 91 (74-99) mg/dL Calcium 12.7 H 12.1 H (8.4-10.2) mg/dL TSH 0.894 (0.465-4.680) mIU/L Adrenal panel 09/07/21 09/08/21 Range/Units 23:35 07:09 Sodium 133 L 138 (137-145) mmol/L Potassium 5.3 H 4.7 (3.5-5.1) mmol/L Chloride 100 108 H (98-107) mmol/L Carbon Dioxide 24 23 (22-30) mmol/L BUN 54 H 45 H (9-20) mg/dL Creatinine 2.99 H 2.36 H (0.66-1.25) mg/dL Glucose 104 H 91 (74-99) mg/dL Calcium 12.7 H 12.1 H (8.4-10.2) mg/dL Total Bilirubin 0.4 0.3 (0.2-1.3) mg/dL AST 21 17 (17-59) U/L ALT 21 17 (4-49) U/L Alkaline Phosphatase 116 106 (38-126) U/L Total Protein 6.8 6.1 L (6.3-8.2) g/dL Albumin 3.3 L 2.9 L (3.5-5.0) g/dL Assessment and Plan Assessment: 60-year-old male history of a 10.7 cm right-sided renal mass, and a lung mass with multiple lung nodules. Primary lung versus kidney. Medical oncology is on board. Discussed with the patient and his given the widespread evidence of metastatic disease he will not benefit from a radical nephrectomy. Discussed w ith both of them the next step would be to obtain tissue, agree with medical oncology can consider biopsying either the lung or the renal mass. Discussed with him this is done by interventional radiology. T Discussed with them also given his low back pain do agree with the recommendation of a bone scan to rule out bony metastases. -We'll follow up on bone scan. -We'll await final pathology from the biopsy
--- NOTE | 2021-09-08 17:15 | US ---
EXAMINATION TYPE: US kidneys/renal and bladder DATE OF EXAM: 09/08/2021 COMPARISON: Same day CT CLINICAL HISTORY: baldo. EXAM MEASUREMENTS: Right Kidney: 16.0 x 5.9 x 5.9 cm Left Kidney: 13.9 x 6.9 x 6.6 cm Right Kidney: large vascular, superior mass with irregular borders measuring 8.8 x 9.0 x 9.0cm, diffi cult to define where mass ends and kidney begins to obtain accurate kidney measurement Left Kidney: measures large with lobular contour, there is a hyperechoic mass measuring 1.5 x 1.6 x 1.8cm Bladder: wnl Probable splenule measuring 3.3 x 2.8 x 3.5cm There is no evidence for hydronephrosis at this point in time. No nephrolithiasis is seen. Partially exophytic heterogeneous lobulated partially calcified hypervascular mass from the upper pole measuri ng 9.0 cm long axis is identified incidental 1.5 cm simple thin-walled cyst inferior to this. Left ki dney has smaller partially exophytic 3.3 x 2.8 x 3.5 cm slightly hyperechoic mass with increased thro ugh transmission. Second solid mass versus nonsimple cyst likely corresponds to lesion of concern ant eriorly axial image 58 on same-day CT The urinary bladder is adequately distended. Bilateral uretera l jets are not seen. IMPRESSION: No hydronephrosis is seen bilaterally. Suspicious large heterogeneous partially calcified hypervascular mass worrisome for neoplasm upper pole right kidney correlates with recent CT. Cannot exclude second solid mass or neoplasm upper pole level of the left kidney. Advise contrast enhanced r enal protocol CT or MRI to further evaluate.
[2021-09-08 19:50] LABS: % Iron Saturation 8.18 (15.00-50.00); Iron 17 ug/dL (65-175); Total Iron Binding Capacity 213 ug/dL (228-460); Vitamin B12 >2000.0 pg/mL (200.0-944.0)
[2021-09-08] MEDS: LACTULOSE 20 GM/30 ML CUP PO SCH (20:14)
[2021-09-08] MEDS: SENNOSIDES-DOCUSATE SODIUM 1 EACH TAB PO SCH (20:14)
[2021-09-08] MEDS: MORPHINE SULFATE 4 MG/ML SYRINGE IV PRN (20:15)
[2021-09-09] MEDS: SODIUM CHLORIDE 0.9% 1,000 ML IV SCH ×2 (05:35→17:52)
[2021-09-09] MEDS: PANTOPRAZOLE 40 MG/10 ML VIAL IV SCH (07:52)
[2021-09-09 08:56] LABS: Angiotensin-1 Converting Enz. 32 U/L (8-52)
[2021-09-09 09:09] LABS: Protein, Total 6.4 g/dL (6.2-8.2)
[2021-09-09] MEDS: LACTULOSE 20 GM/30 ML CUP PO SCH ×2 (10:18→21:36)
[2021-09-09] MEDS: SENNOSIDES-DOCUSATE SODIUM 1 EACH TAB PO SCH ×2 (10:18→21:36)
[2021-09-09 10:41] LABS: Basophils # (A) 0.04 X 10*3/uL (0.00-0.10); Basophils % (A) 0.6 %; Eosinophils % (A) 1.4 %; HGB 7.8 g/dL (13.0-17.0); Lymphocytes # (A) 0.46 X 10*3/uL (0.90-5.00); Lymphocytes % (A) 6.5 %; MCH 22.7 pg (27.0-32.0); MCHC 28.9 g/dL (32.0-37.0); MCV 78.7 fL (80.0-97.0); Mean Platelet Volume 9.7 fL (9.5-12.2); Monocytes # (A) 0.81 X 10*3/uL (0.20-1.00); Monocytes % (A) 11.5 %; NRBC Per 100 WBC 0 /100 WBCS (0.0-0.0); Neutrophils # (A) 5.55 X 10*3/uL (1.80-7.70); Platelet Count 461 X 10*3/uL (140-440); RBC 3.43 X 10*6/uL (4.40-5.60); WBC 7.03 X 10*3/uL (4.50-10.00)
--- NOTE | 2021-09-09 11:10 | P.PN ---
Subjective Patient is seen in follow-up for acute kidney injury. Creatinine 2.36 yesterday. Morning labs pending. Resting in bed. Denies chest pain or shor tness of breath. Oral intake fair. Vital signs are stable. General: Awake. No acute distress. HEENT: Head exam is unremarkable. LUNGS: Breath sounds decreased. HEART: Rate and Rhythm are regular. ABDOMEN: Soft, no distention. EXTREMITITES: No edema. Objective - Vital Signs Vital signs: Vital Signs Temp 98.5 F 09/09/21 07:01 Pulse 77 09/09/21 07:01 Resp 16 09/09/21 07:01 BP 112/69 09/09/21 07:01 Pulse Ox 95 09/09/21 07:01 FiO2 Intake & Output 09/08/21 09/09/21 09/09/21 18:59 06:59 18:59 Intake Total 1560 1999 Balance 1560 1999 Intake: Intake, IV Titration 1560 1500 Amount Sodium Chloride 0.9% 1, 1560 1500 000 ml @ 130 mls/hr IV . [facility] Rx#:[id number] Oral 500 Other: Voiding Method Toilet Toilet # Voids 2 4 # Bowel Movements 1 - Labs CBC & Chem 7: 09/09/21 05:57 09/08/21 07:09 Labs: Abnormal Lab Results - Last 24 Hours (Table) 09/08/21 09/08/21 09/09/21 Range/Units 11:25 11:25 05:57 RBC 3.43 L (4.40-5.60) X 10*6/uL Hgb 7.8 L (13.0-17.0) g/dL Hct 27.0 L (39.6-50.0) % MCV 78.7 L (80.0-97.0) fL MCH 22.7 L (27.0-32.0) pg MCHC 28.9 L (32.0-37.0) g/dL RDW 16.0 H (11.5-14.5) % Plt Count 461 H (140-440) X 10*3/uL Immature Gran # 0.07 H (0.00-0.04) X 10*3/uL Lymphocytes # 0.46 L (0.90-5.00) X 10*3/uL Iron 17 L (65-175) ug/dL TIBC 213 L (228-460) ug/dL % Saturation 8.18 L (15.00-50.00) Transferrin 152.0 L (204.0-354.0) mg/dL Ferritin 869.0 H (22.0-322.0) ng/mL Lactate Dehydrogenase 263 L (313-618) U/L Vitamin B12 >2000.0 H (200.0-944.0) pg/mL PTH Intact 5.0 L (14.0-72.0) pg/mL Assessment and Plan Plan: Assessment: 1. Acute kidney injury mostly prerenal secondary to hypotension, ARB-HCTZ, and hypercalcemia. Creatinine was 2.99 on admission - 2.36 yesterday. Unknown baseline renal function.no hydronephrosis noted a kidney ultrasound. UA benign. Patient's creatinine 2 weeks ago prior to admission was 1.2. 2. Hypercalcemia secondary to hypovolemia, hctz and underlying malignancy. EVELINA 32. Vitamin D 41.9. PTH low at 5. 3. Hypovolemic hyponatremia improved with IV hydration. 4. Right renal mass with metastatic lung nodules and liver lesions noted on CAT scan done 08/31/2021. Tissue biopsy being considered. 5. Benign hypertension. Blood pressure currently on the lower side. 6. Anemia. Iron deficiency noted. Plan: Maintain IV fluids. Status post IV zoledronic acid 09/08/2021. Continue to hold antihypertensives and diuretics. Avoid nephrotoxins. Follow-up morning labs and pending workup for hypercalcemia. Tissue biopsy and bone scan pending. Add IV iron.
[2021-09-09 11:13] LABS: African American GFR (CKD) 53.1 (60.0-200.0); Albumin/Globulin Ratio 0.91 (1.60-3.17); Anion Gap 7.7 mmol/L (10.00-18.00); BUN/Creat Ratio 16.63 Ratio (12.00-20.00); Blood Urea Nitrogen 26.6 mg/dL (9.0-27.0); Calcium 11.7 mg/dL (8.7-10.3); Carbon Dioxide 23.3 mmol/L (20.0-27.5); Globulin 3.3 g/dL (1.6-3.3); Magnesium 1.8 mg/dL (1.5-2.4); Non-African American GFR(CKD) 45.8 (60.0-200.0); Phosphorus 2.4 mg/dL (2.4-5.1); Potassium 4.8 mmol/L (3.5-5.5); Total Bilirubin 0.3 mg/dL (0.30-1.20); Total Protein 6.3 g/dL (6.2-8.2)
[2021-09-09] MEDS: ENOXAPARIN 40 MG/0.4 ML SYRINGE SQ SCH (11:20)
[2021-09-09] MEDS ORDERED: FUROSEMIDE 10 MG/ML 2 ML VIAL IV ONE (11:57)
[2021-09-09] MEDS ORDERED: CALCITONIN INJ 200 UNIT/ML (MDV) VIAL IM ONE (12:30)
--- NOTE | 2021-09-09 13:19 | NM ---
EXAMINATION TYPE: NM bone scan whole body DATE OF EXAM: 09/09/2021 COMPARISON: CT 09/08/2021 HISTORY: Hypercalcemia, abnormal CT, renal mass, lung masses Delayed whole-body scanning was performed following the injection of 22.9 mCi Tc 99m MDP. Images acq uired 4 hours post injection. FINDINGS: The upper pole of the right kidney shows diminished rate pharmaceutical uptake consistent with patien t's underlying renal mass. Uptake in the maxilla and mandible is likely due to periodontal disease. U ptake within the feet, ankles, knees, wrists, elbows and shoulders is likely degenerative. No area of abnormal increased or decreased uptake to suggest metastatic disease to bone. IMPRESSION: Metastatic disease is not evident.
--- NOTE | 2021-09-09 13:21 | P.CNPUL ---
History of Present Illness Consult date: 09/09/21 Requesting physician: Deep James Reason for consult: abnormal CXR/CT Chief complaint: Generalized weakness, fatigue, poor appetite History of present illness: Physical very pleasant 60-year-old male patient with a history of hypertension, gastroesophageal reflux disease, hiatal hernia. Lifelong nonsmoker. He recently been having issues with generalized weakness and fatigue and was found to be anemic. He had undergone colonoscopy and no bleeding was detected. He was brought into the emergency room yesterday with progressive fatigue and weakness poor appetite, vague back pain and lack of energy. An outside CAT scan of the chest abdomen pelvis revealed a large 9 cm exophytic solid renal mass strongly suggestive of malignancy with multiple lung nodules suggestive of metastatic disease and liver lesions. They were to be seen by oncology later this month. Due to the increased weakness he was brought into the ER instead. ET scan here revealed a right lung mass with multiple bilateral pulmonary nodules suspicious for neoplasm. There is a large superior pole right renal mass measuring 8.3 x 10.7 cm compatible with neoplasm. Small bilateral pleural effusions. He is seen today in consultation on the regular medical floor. He is currently resting fairly comfortably in bed. Awake and alert in no acute distress. He is maintaining O2 saturations in the 90s on room air. Afebrile. Hemodynamically stable. White count 7.0. Hemoglobin 7.8. Platelets 461. Sodium 139. Potassium 4.8. BUN 27. Creatinine 1.6. Iron 17. TIBC 213. Transferrin 152. Ferritin 169. AST 17. ALT 22. He's been initiated on iron supplements. Morphine and Dilaudid for back pain. Protonix for GI prophylaxis. Review of Systems REVIEW OF SYSTEMS: CONSTITUTIONAL: Positive for generalized weakness, fatigue. Positive for significant weight loss. EYES: Denies change in vision. EARS, NOSE, MOUTH, THROAT: Denies headaches, denies sore throat. CARDIOVASCULAR: Denies chest pain, palpitations or syncopal episodes. RESPIRATORY: Denies shortness of breath, cough, congestion or hemoptysis. GASTROINTESTINAL: Positive for poor appetite, denies abdominal pain GENITOURINARY: Denies hematuria, denies infections. MUSKULOSKELETAL: Positive for back pain, denies swelling. INTEGUMENTARY: Denies rash, denies eczema. NEUROLOGICAL: Denies recent memory loss, no recent seizure activity. PSYCHIATRIC: Denies anxiety, denies depression. HEMATOLOGIC/LYMPHATIC: Positive for anemia, denies enlarged lymph nodes. Past Medical History Past Medical History: GERD/Reflux, Hypertension History of Any Multi-Drug Resistant Organisms: None Reported Past Surgical History: Orthopedic Surgery Additional Past Surgical History / Comment(s): left arm Past Anesthesia/Blood Transfusion Reactions: No Reported Reaction Past Psychological History: No Psychological Hx Reported Smoking Status: Never smoker Past Alcohol Use History: Rare Past Drug Use History: None Reported - Past Family History Mother Family Medical History: Hypertension Medications and Allergies Home Medications Medication Instructions Recorded Confirmed Type Cyclobenzaprine [Flexeril] 10 mg PO TID PRN 09/07/21 09/07/21 History Omeprazole 20 mg PO DAILY 09/07/21 09/07/21 History Ondansetron [Zofran] 4 mg PO Q8HR PRN 09/07/21 09/07/21 History Valsartan/Hydrochlorothiazide 1 tab PO DAILY 09/07/21 09/07/21 History [Valsartan-Hctz 160-25 mg Tab] traMADol HCL 50 mg PO TID 09/07/21 09/07/21 History Allergies Allergy/AdvReac Type Severity Reaction Status Date / Time No Known Allergies Allergy Verified 09/07/21 21:49 Physical Exam Vitals: Vital Signs Temp Pulse Pulse Resp BP Pulse Ox 09/09/21 07:01 98.5 F 77 16 112/69 95 09/09/21 05:00 98.8 F 65 16 98/66 92 L 09/08/21 19:58 98.7 F 91 95/63 92 L 09/08/21 19:50 18 09/08/21 14:30 98.3 F 86 18 92/58 Intake and Output 09/08/21 09/09/21 09/09/21 22:59 06:59 14:59 Intake Total 1560 1999 Balance 1560 1999 Intake: Intake, IV Titration 1560 1500 Amount Sodium Chloride 0.9% 1, 1560 1500 000 ml @ 130 mls/hr IV . Q7H42M [facility] Rx#:[id number] Oral 500 Other: Voiding Method Toilet # Voids 2 4 # Bowel Movements 1 GENERAL EXAM: Alert, pleasant 60-year-old male, generalized weakness and fatigue, on room air, fairly comfortable in no apparent distress. HEAD: Normocephalic. EYES: Normal reaction of pupils, equal size. NOSE: Clear with pink turbinates. THROAT: No erythema or exudates. NECK: No masses, no JVD. CHEST: No chest wall deformity. LUNGS: Equal air entry with no crackles, wheeze, rhonchi or dullness. CVS: S1 and S2 normal with no audible murmur, regular rhythm. ABDOMEN: No hepatosplenomegaly, normal bowel sounds, no guarding or rigidity. SPINE: No scoliosis or deformity SKIN: No rashes CENTRAL NERVOUS SYSTEM: No focal deficits, tone is normal in all 4 extremities. EXTREMITIES: There is no peripheral edema. No clubbing, no cyanosis. Peripheral pulses are intact. Results - Laboratory Findings CBC and BMP: 09/09/21 05:57 09/09/21 05:57 PT/INR, D-dimer PT 11.7 sec (9.0-12.0) 09/07/21 23:15 INR 1.1 (<1.2) 09/07/21 23:15 Abnormal lab findings: Abnormal Labs 09/07/21 09/07/21 09/07/21 23:05 23:15 23:35 RBC 3.25 L Hgb 8.0 L Hct 25.6 L MCV 78.8 L MCH 24.6 L MCHC RDW Plt Count 530 H Immature Gran # Lymphocytes # APTT 21.8 L Sodium 133 L Potassium 5.3 H Chloride Anion Gap BUN 54 H Creatinine 2.99 H Est GFR (CKD-EPI)AfAm Est GFR (CKD-EPI)NonAf Glucose 104 H Calcium 12.7 H Magnesium 2.4 H Iron TIBC % Saturation Transferrin Ferritin Alkaline Phosphatase Lactate Dehydrogenase Total Protein Albumin 3.3 L Albumin/Globulin Ratio Vitamin B12 PTH Intact 09/08/21 09/08/21 09/08/21 07:09 11:25 11:25 RBC Hgb Hct MCV MCH MCHC RDW Plt Count Immature Gran # Lymphocytes # APTT Sodium Potassium Chloride 108 H Anion Gap BUN 45 H Creatinine 2.36 H Est GFR (CKD-EPI)AfAm Est GFR (CKD-EPI)NonAf Glucose Calcium 12.1 H Magnesium Iron 17 L TIBC 213 L % Saturation 8.18 L Transferrin 152.0 L Ferritin 869.0 H Alkaline Phosphatase Lactate Dehydrogenase 263 L Total Protein 6.1 L Albumin 2.9 L Albumin/Globulin Ratio Vitamin B12 >2000.0 H PTH Intact 5.0 L 09/09/21 09/09/21 05:57 05:57 RBC 3.43 L Hgb 7.8 L Hct 27.0 L MCV 78.7 L MCH 22.7 L MCHC 28.9 L RDW 16.0 H Plt Count 461 H Immature Gran # 0.07 H Lymphocytes # 0.46 L APTT Sodium Potassium Chloride Anion Gap 7.70 L BUN Creatinine 1.6 H Est GFR (CKD-EPI)AfAm 53.1 L Est GFR (CKD-EPI)NonAf 45.8 L Glucose Calcium 11.7 H Magnesium Iron TIBC % Saturation Transferrin Ferritin Alkaline Phosphatase 134 H Lactate Dehydrogenase Total Protein Albumin 3.0 L Albumin/Globulin Ratio 0.91 L Vitamin B12 PTH Intact - Diagnostic Findings Chest x-ray: image reviewed CT scan - chest: image reviewed Assessment and Plan Assessment: 1 Generalized weakness, fatigue, poor appetite and weight loss secondary to suspected malignancy most likely renal cell carcinoma versus lung primary. The plan is for interventional radiology to perform a FNA of the right renal mass. 2 Right kidney mass measuring 8.3 x 10.7 cm, cannot exclude second solid mass of the left kidney 3 Multiple bilateral pulmonary nodules including a right perihilar mass measuring 6.0 x 3.8 cm, 4 Lifelong nonsmoker 5 Anemia with recent endoscopies revealing no active bleeding 6 Back pain Plan: The patient was seen and evaluated CAT scan, chest x-ray, ultrasound and labs reviewed Plan is for interventional radiology to perform a FNA of the right renal mass Oncology consult Bone scan pending We will continue to follow and make further recommendations based on his clinical status I have personally seen and examined the patient, performed the documentation and the assessment and plan as written. Number of minutes spent on the visit: 20.
[2021-09-09 13:25] LABS: Albumin 2.44 g/dL (3.80-4.90); Gamma Globulin 1.23 g/dL (0.70-1.50)
--- NOTE | 2021-09-09 14:41 | US ---
EXAMINATION TYPE: US biopsy renal DATE OF EXAM: 09/09/2021 HISTORY: Right renal mass. FINDINGS: Maximal barrier technique was utilized. Hand hygiene achieved with soap and water and alco hol-based hand rub. The skin overlying a suitable path to the patient's mass in the right kidney was localized with ultrasound and the overlying skin prepped and draped. Ultrasound was utilized with st erile technique. Lidocaine was used for local anesthesia. A skin irma was made with a scalpel. An 18-gauge needle was advanced under direct ultrasound guidance and core specimen obtained of the mass. Specimen submitted in formalin to Pathology. Following the procedure, hemostasis achieved and the p atient is discharged in stable condition without complication. IMPRESSION:STATUS POST ULTRASOUND GUIDED CORE BIOPSY OF right kidney MASS, PATHOLOGY IS PENDING. THI S PROCEDURE IS PERFORMED BY THE UNDERSIGNED.
--- NOTE | 2021-09-09 14:53 | P.PCN ---
Date of Procedure: 09/09/21 Preoperative Diagnosis: right renal mass Procedure(s) Performed: u/s guide renal mass biopsy right Anesthesia: local Estimated Blood Loss (ml): 5 Pathology: other (in formalin to path) Condition: stable Disposition: no change Indications for Procedure: renal mass, lung masses Operative Findings: 18 ga core Description of Procedure: single pass, 18 ga core under u/s guide to path in formalin, no immediate complication
[2021-09-09] MEDS: SODIUM FERRIC GLUCONAT-SUCROSE 125 MG in SODIUM CHLORIDE 0.9% 100 ML IVPB SCH (14:57)
[2021-09-09 15:13] LABS: Free Lambda Lt Chain Qnt, Seru 4.54 mg/dL (0.57-2.63)
--- NOTE | 2021-09-09 17:14 | P.PN ---
Subjective Progress Note Date: 09/09/21 Principal diagnosis: metastatic malignant picture Plan is for Biopsy of one of the accessible lung nodules today through Interventional Radiology, Dr. Huston and Dr. Sanchez have spoken to patient and . Patient is NPO. Patient and family are anxious as they have been between a few hospitals without a concrete diagnosis. Patient is a life long non smoker, no second hand or harmful chemical exposures are known. Objective - Vital Signs Vital signs: Vital Signs Temp 98.5 F 09/09/21 07:01 Pulse 77 09/09/21 07:01 Resp 16 09/09/21 07:01 BP 112/69 09/09/21 07:01 Pulse Ox 95 09/09/21 07:01 FiO2 Intake & Output 09/08/21 09/09/21 09/09/21 18:59 06:59 18:59 Intake Total 1560 2000 Balance 1560 1999 Intake: Intake, IV Titration 1560 1500 Amount Sodium Chloride 0.9% 1, 1560 1500 000 ml @ 130 mls/hr IV . Q7H42M [facility] Rx#:[id number] Oral 500 Other: Voiding Method Toilet Toilet # Voids 2 4 # Bowel Movements 1 - Exam - Constitutional General appearance: cooperative - EENT Eyes: EOMI ENT: NA/AT - Respiratory Respiratory: bilateral: diminished - Cardiovascular Rhythm: regularly irregular - Gastrointestinal General gastrointestinal: soft - Integumentary Integumentary: pale - Musculoskeletal Musculoskeletal: generalized weakness - Labs CBC & Chem 7: 09/09/21 05:57 09/09/21 05:57 Labs: Abnormal Lab Results - Last 24 Hours (Table) 09/08/21 09/08/21 Range/Units 11:25 11:25 Iron 17 L (65-175) ug/dL TIBC 213 L (228-460) ug/dL % Saturation 8.18 L (15.00-50.00) Transferrin 152.0 L (204.0-354.0) mg/dL Ferritin 869.0 H (22.0-322.0) ng/mL Lactate Dehydrogenase 263 L (313-618) U/L Vitamin B12 >2000.0 H (200.0-944.0) pg/mL PTH Intact 5.0 L (14.0-72.0) pg/mL Assessment and Plan (1) Microcytic anemia Current Visit: Yes Status: Acute Code(s): D50.9 - IRON DEFICIENCY ANEMIA, UNSPECIFIED SNOMED Code(s): 171028356 (2) Hypercalcemia Narrative/Plan: - Dr Soto, nephrology, has been consulted. hypercalcemia probable related to malignancy and dehydration, continue iV Fluids. - Status Post zometa due to renal insuffieincy - Await Calcium levels today, pending Current Visit: Yes Status: Acute Code(s): E83.52 - HYPERCALCEMIA SNOMED Code(s): 90588611 (3) Acute kidney insufficiency Narrative/Plan: Nephrology to evaluate, appears new, 08/04/21 Creatinine 1.2 Current Visit: Yes Status: Acute Code(s): N28.9 - DISORDER OF KIDNEY AND URETER, UNSPECIFIED SNOMED Code(s): 729695498 (4) Unintentional weight loss Narrative/Plan: >25lb Current Visit: Yes Status: Acute Code(s): R63.4 - ABNORMAL WEIGHT LOSS SNOMED Code(s): 366873544 Plan: CT Chest/Abd/Pelvis with PO only contrast Reviewed and large right hilar mass in lung and pleural nodule Bone Scan GOal is to evaluate for potential biopsy site Anemia and hypercalcemia work-up CT scans without contrast revealed picture of widespread metastatic disease consistent with cancer (likely lung or renal primary). Recent GI evaluation Dr. Jaramillo in [place] was negative per . There is a large right hilar mass that could be targeted for biopsy, Consult placed for Pulmonology regarding best approach. Lower back pain with right leg numbness and sciatic like pain, mild weakness. Patient has not moved bowels in over a week, he is passing edgard. Minimal PO intake and not moving much. Miralax and colace without relief. Increased bowel regimen: fleets, lactulose, and senna-s BID orders placed. Once renal function improved MRI lumbar spine and Brain Discussed with patient, , nursing nephro and primary teams Dr. Early has cordinated with pulmonary and IR today and planing for IR needle biopsy of lung mass today, patient is NPO Long discussion with family and daughter.
--- NOTE | 2021-09-09 17:50 | P.PN ---
Subjective Progress Note Date: 09/09/21 (delayed charting seen at 1115) Principal diagnosis: acute kidney injury Patient is a 60-year-old male with anemia, GERD, HTN and recently discovered renal mass who presents to the emergency room with complaints of weakness and weight loss. He was seen at [place] [facility] on 08/31/[address] abdomen and pelvis revealed a large 9 cm exophytic solid right renal mass strongly suggestive of malignancy along with metastatic lung nodules and multiple small liver lesions. They had contacted Dr. French and had a liver MRI set up for next week. Laboratory evaluation in the emergency room was remarkable for hemoglobin 8.0, MCV 78.8, platelet count 530, sodium 133, potassium 5.3, BUN 54, creatinine 2.99, and calcium level 12.7. He was stared on IVF and arrangement were made for admission. He was seen by oncology and underwent CT chest abdomen and pelvis which again demonstrated lung masses, liver lesions, and right kidney lesion. Pulmonary was consulted who recommended IR guided biopsy. Urology was consulted who again recommended IR guided biopsy. This biopsy was completed on 09/09/21 results are pending. Patient seen and examined at bedside with present. We discussed the possibility of biopsy today. Patient reports he did not sleep much last night due to his IV beeping. He states his pain control was adequate and the morphine works well when he takes it. No nausea or vomiting. General: nontoxic, no distress, appears at stated age Derm: warm, dry Head: atraumatic, normocephalic, symmetric Eyes: EOMI, no lid lag, anicteric sclera Mouth: no lip lesion, mucus membranes moist Cardiovascular: S1S2 reg, no murmur, positive posterior tibial pulse bilateral, Lungs: CTA bilateral, no rhonchi, no rales , no accessory muscle use Abdominal: soft, nontender to palpation, no guarding, no appreciable organomegaly Ext: no gross muscle atrophy, no edema, no contractures Neuro: CN II-XI grossly intact, no focal neuro deficits Psych: Alert, oriented, appropriate affect Assessment/plan: Right renal lesion Lung masses Liver nodules - Oncology, urology, and pulmonary recommendations appreciated -Nuclear medicine bone scan with no evidence of bony metastatic disease -Status post IR guided biopsy on 09/09/21 -Pain control COURTNEY, hyperkalemia, and hypercalcemia , improving -PTH is low - nephrology recs : Lasix today and calcitonin - IVF - avoid nephrotoxic agents - Follow renal function and calcium levels Anemia, thrombocytosis - Suspect iron deficiency anemia with sat 8.18 and that ferritin is reactive to cancer -Await review by hematology/oncology DVT prophylaxis: Lovenox on hold due to biopsy, anticipated to be resumed in morning Discussed with: Patient, , oncology, radiology nurse multiple times Anticipated discharge: In 2-[address]: Home A total of 35 minutes was spent on the care of this complex patient more than 50% of the time was spent in counseling and care coordination. Objective - Vital Signs Vital signs: Vital Signs Temp 97.8 F 09/09/21 14:55 Pulse 101 H 09/09/21 17:40 Resp 18 09/09/21 14:55 BP 110/73 09/09/21 17:40 Pulse Ox 99 09/09/21 17:40 FiO2 Intake & Output 09/08/21 09/09/21 09/09/21 18:59 06:59 18:59 Intake Total 1560 1999 Balance 1560 1999 Intake: Intake, IV Titration 1560 1500 Amount Sodium Chloride 0.9% 1, 1560 1500 000 ml @ 100 mls/hr IV . Q10H [facility] Rx#:[id number] Oral 500 Other: Voiding Method Toilet Toilet # Voids 2 4 2 # Bowel Movements 1 2 - Labs CBC & Chem 7: 09/09/21 05:57 09/09/21 05:57 Labs: Abnormal Lab Results - Last 24 Hours (Table) 09/08/21 09/08/21 09/08/21 Range/Units 11:25 11:25 11:25 RBC (4.40-5.60) X 10*6/uL Hgb (13.0-17.0) g/dL Hct (39.6-50.0) % MCV (80.0-97.0) fL MCH (27.0-32.0) pg MCHC (32.0-37.0) g/dL RDW (11.5-14.5) % Plt Count (140-440) X 10*3/uL Immature Gran # (0.00-0.04) X 10*3/uL Lymphocytes # (0.90-5.00) X 10*3/uL Anion Gap (10.00-18.00) mmol/L Creatinine (0.6-1.5) mg/dL Est GFR (CKD-EPI)AfAm (60.0-200.0) Est GFR (CKD-EPI)NonAf (60.0-200.0) Calcium (8.7-10.3) mg/dL Iron 17 L (65-175) ug/dL TIBC 213 L (228-460) ug/dL % Saturation 8.18 L (15.00-50.00) Transferrin 152.0 L (204.0-354.0) mg/dL Ferritin 869.0 H (22.0-322.0) ng/mL Alkaline Phosphatase (41-126) U/L Albumin (3.8-4.9) g/dL Albumin (PEP) 2.44 L (3.80-4.90) g/dL Albumin/Globulin Ratio (1.60-3.17) g/dL Yctyd-4-Cuhgcacog 0.65 H (0.10-0.40) g/dL Gyrvu-1-Abfxyagtv 1.17 H (0.60-1.00) g/dL Vitamin B12 >2000.0 H (200.0-944.0) pg/mL PTH Intact 5.0 L (14.0-72.0) pg/mL Free Standard LC, Quant (0.33-1.94) mg/dL Free Lambda LC, Quant (0.57-2.63) mg/dL 09/08/21 09/09/21 09/09/21 Range/Units 11:25 05:57 05:57 RBC 3.43 L (4.40-5.60) X 10*6/uL Hgb 7.8 L (13.0-17.0) g/dL Hct 27.0 L (39.6-50.0) % MCV 78.7 L (80.0-97.0) fL MCH 22.7 L (27.0-32.0) pg MCHC 28.9 L (32.0-37.0) g/dL RDW 16.0 H (11.5-14.5) % Plt Count 461 H (140-440) X 10*3/uL Immature Gran # 0.07 H (0.00-0.04) X 10*3/uL Lymphocytes # 0.46 L (0.90-5.00) X 10*3/uL Anion Gap 7.70 L (10.00-18.00) mmol/L Creatinine 1.6 H (0.6-1.5) mg/dL Est GFR (CKD-EPI)AfAm 53.1 L (60.0-200.0) Est GFR (CKD-EPI)NonAf 45.8 L (60.0-200.0) Calcium 11.7 H (8.7-10.3) mg/dL Iron (65-175) ug/dL TIBC (228-460) ug/dL % Saturation (15.00-50.00) Transferrin (204.0-354.0) mg/dL Ferritin (22.0-322.0) ng/mL Alkaline Phosphatase 134 H (41-126) U/L Albumin 3.0 L (3.8-4.9) g/dL Albumin (PEP) (3.80-4.90) g/dL Albumin/Globulin Ratio 0.91 L (1.60-3.17) g/dL Fjbwg-6-Ioyymfebn (0.10-0.40) g/dL Kdeqi-0-Xysbcwzrq (0.60-1.00) g/dL Vitamin B12 (200.0-944.0) pg/mL PTH Intact (14.0-72.0) pg/mL Free Standard LC, Quant 6.30 H (0.33-1.94) mg/dL Free Lambda LC, Quant 4.54 H (0.57-2.63) mg/dL
[2021-09-09] MEDS ORDERED: CYCLOBENZAPRINE 10 MG TAB PO PRN (17:52)
[2021-09-09 19:13] LABS: Vitamin D, 1, 25-Dihydroxy 12 pg/mL (20 - 79)
[2021-09-09] MEDS: MORPHINE SULFATE 4 MG/ML SYRINGE IV PRN (21:36)
[2021-09-10] MEDS: SODIUM CHLORIDE 0.9% 1,000 ML IV SCH ×3 (02:46→21:33)
[2021-09-10 06:59] LABS: Hypochromasia Moderate; MCH 24.5 pg (25.0-35.0); MCHC 31.8 g/dL (31.0-37.0); MCV 77.1 fL (80.0-100.0); Mean Platelet Volume 7.2; Microcytosis Slight; Platelet Count 395 k/uL (150-450); RBC 3.24 m/uL (4.30-5.90); RDW 15.4 % (11.5-15.5)
[2021-09-10 07:29] LABS: African American GFR (CKD) 69 (>60 ml/min/1.73 sqM); Anion Gap 8 mmol/L; Blood Urea Nitrogen 19 mg/dL (9-20); Calcium 10.1 mg/dL (8.4-10.2); Carbon Dioxide 23 mmol/L (22-30); Chloride 108 mmol/L (98-107); Glucose 98 mg/dL (74-99); Non-African American GFR(CKD) 60 (>60 ml/min/1.73 sqM); Potassium 4.1 mmol/L (3.5-5.1); Sodium 139 mmol/L (137-145)
[2021-09-10] MEDS: SENNOSIDES-DOCUSATE SODIUM 1 EACH TAB PO SCH ×2 (07:54→19:03)
[2021-09-10] MEDS: LACTULOSE 20 GM/30 ML CUP PO SCH ×2 (07:54→19:03)
[2021-09-10] MEDS: PANTOPRAZOLE 40 MG TABLET PO SCH (07:54)
[2021-09-10] MEDS: SODIUM FERRIC GLUCONAT-SUCROSE 125 MG in SODIUM CHLORIDE 0.9% 100 ML IVPB SCH (08:24)
--- NOTE | 2021-09-10 10:22 | P.PN ---
Subjective Patient is seen in follow-up for acute kidney injury. Renal function improving. Calcium level down to 10.1. Receiving IV fluids. Resting in bed. Denies chest pain or shortness of breath. Oral intake fair. Vital signs are stable. General: Awake. No acute distress. HEENT: Head exam is unremarkable. LUNGS: Breath sounds decreased. HEART: Rate and Rhythm are regular. ABDOMEN: Soft, no distention. EXTREMITITES: No edema. Objective - Vital Signs Vital signs: Vital Signs Temp 98.4 F 09/10/21 05:00 Pulse 88 09/10/21 05:00 Resp 16 09/10/21 05:00 BP 92/58 09/10/21 05:00 Pulse Ox 93 L 09/10/21 05:00 FiO2 Intake & Output 09/09/21 09/10/21 09/10/21 18:59 06:59 18:59 Intake Total 1600 Balance 1600 Intake: Intake, IV Titration 1200 Amount Sodium Chloride 0.9% 1, 1200 000 ml @ 100 mls/hr IV . Q10H [facility] Rx#:[id number] Oral 400 Other: Voiding Method Toilet # Voids 2 4 # Bowel Movements 2 - Labs CBC & Chem 7: 09/10/21 06:34 09/10/21 06:34 Labs: Abnormal Lab Results - Last 24 Hours (Table) 09/08/21 09/08/21 09/08/21 Range/Units 11:25 11:25 11:25 RBC (4.40-5.60) X 10*6/uL Hgb (13.0-17.0) g/dL Hct (39.6-50.0) % MCV (80.0-97.0) fL MCH (27.0-32.0) pg MCHC (32.0-37.0) g/dL RDW (11.5-14.5) % Plt Count (140-440) X 10*3/uL Immature Gran # (0.00-0.04) X 10*3/uL Lymphocytes # (0.90-5.00) X 10*3/uL Chloride (98-107) mmol/L Anion Gap (10.00-18.00) mmol/L Creatinine (0.6-1.5) mg/dL Est GFR (CKD-EPI)AfAm (60.0-200.0) Est GFR (CKD-EPI)NonAf (60.0-200.0) Calcium (8.7-10.3) mg/dL Alkaline Phosphatase (41-126) U/L Albumin (3.8-4.9) g/dL Albumin (PEP) 2.44 L (3.80-4.90) g/dL Albumin/Globulin Ratio (1.60-3.17) g/dL Ppbcq-0-Xvhnfnoms 0.65 H (0.10-0.40) g/dL Wpcfw-4-Sbcvggxgs 1.17 H (0.60-1.00) g/dL Vit D 1,25-Dihydroxy 12 L (20 - 79) pg/mL Free Ma[place] LC, Quant 6.30 H (0.33-1.94) mg/dL Free Lambda LC, Quant 4.54 H (0.57-2.63) mg/dL 09/09/21 09/09/21 09/10/21 Range/Units 05:57 05:57 06:34 RBC 3.43 L (4.40-5.60) X 10*6/uL Hgb 7.8 L (13.0-17.0) g/dL Hct 27.0 L (39.6-50.0) % MCV 78.7 L (80.0-97.0) fL MCH 22.7 L (27.0-32.0) pg MCHC 28.9 L (32.0-37.0) g/dL RDW 16.0 H (11.5-14.5) % Plt Count 461 H (140-440) X 10*3/uL Immature Gran # 0.07 H (0.00-0.04) X 10*3/uL Lymphocytes # 0.46 L (0.90-5.00) X 10*3/uL Chloride 108 H (98-107) mmol/L Anion Gap 7.70 L (10.00-18.00) mmol/L Creatinine 1.6 H 1.29 H (0.6-1.5) mg/dL Est GFR (CKD-EPI)AfAm 53.1 L (60.0-200.0) Est GFR (CKD-EPI)NonAf 45.8 L (60.0-200.0) Calcium 11.7 H (8.7-10.3) mg/dL Alkaline Phosphatase 134 H (41-126) U/L Albumin 3.0 L (3.8-4.9) g/dL Albumin (PEP) (3.80-4.90) g/dL Albumin/Globulin Ratio 0.91 L (1.60-3.17) g/dL Bpmvy-0-Qrdjmoaqj (0.10-0.40) g/dL Kvwbw-7-Lmutndizw (0.60-1.00) g/dL Vit D 1,25-Dihydroxy (20 - 79) pg/mL Free Maunie LC, Quant (0.33-1.94) mg/dL Free Lambda LC, Quant (0.57-2.63) mg/dL 09/10/21 Range/Units 06:34 RBC 3.24 L (4.40-5.60) X 10*6/uL Hgb 8.0 L (13.0-17.0) g/dL Hct 25.0 L (39.6-50.0) % MCV 77.1 L (80.0-97.0) fL MCH 24.5 L (27.0-32.0) pg MCHC (32.0-37.0) g/dL RDW (11.5-14.5) % Plt Count (140-440) X 10*3/uL Immature Gran # (0.00-0.04) X 10*3/uL Lymphocytes # (0.90-5.00) X 10*3/uL Chloride (98-107) mmol/L Anion Gap (10.00-18.00) mmol/L Creatinine (0.6-1.5) mg/dL Est GFR (CKD-EPI)AfAm (60.0-200.0) Est GFR (CKD-EPI)NonAf (60.0-200.0) Calcium (8.7-10.3) mg/dL Alkaline Phosphatase (41-126) U/L Albumin (3.8-4.9) g/dL Albumin (PEP) (3.80-4.90) g/dL Albumin/Globulin Ratio (1.60-3.17) g/dL Cvedp-3-Gbwqdqfpw (0.10-0.40) g/dL Ajjba-1-Ltcnywxsk (0.60-1.00) g/dL Vit D 1,25-Dihydroxy (20 - 79) pg/mL Free [place] LC, Quant (0.33-1.94) mg/dL Free Lambda LC, Quant (0.57-2.63) mg/dL Assessment and Plan Plan: Assessment: 1. Acute kidney injury mostly prerenal secondary to hypotension, ARB-HCTZ, and hypercalcemia. Creatinine was 2.99 on admission - 1.29 today. Unknown baseline renal function.no hydronephrosis noted a kidney ultrasound. UA benign. Patient's creatinine 2 weeks ago prior to admission was 1.2. 2. Hypercalcemia secondary to hypovolemia, hctz and underlying malignancy. EVELINA 32. Vitamin D 41.9. 1,25D3 level 12. PTH low at 5. Calcium level trending down. 3. Hypovolemic hyponatremia improved with IV hydration. 4. Right renal mass with metastatic lung nodules and liver lesions noted on CAT scan done 08/31/2021. Renal mass biopsy done 09/09/2021. 5. Benign hypertension. Blood pressure currently on the lower side. 6. Anemia. Iron deficiency noted. Plan: Maintain IV fluids. Status post IV zoledronic acid 09/08/2021. Continue to hold antihypertensives and diuretics. Avoid nephrotoxins. Follow-up pending workup for hypercalcemia. Biopsy results pending. Maintain IV iron.
[2021-09-10] MEDS: MAGNESIUM SULFATE-D5W PMX 1 GM in DEXTROSE/WATER 1 100ML.BAG IVPB SCH ×2 (10:54→12:01)
--- NOTE | 2021-09-10 11:23 | P.PN ---
Subjective Progress Note Date: 09/10/21 Principal diagnosis: Generalized weakness, fatigue, poor appetite Physical very pleasant 60-year-old male patient with a history of hypertension, gastroesophageal reflux disease, hiatal hernia. Lifelong nonsmoker. He recently been having issues with generalized weakness and fatigue and was found to be anemic. He had undergone colonoscopy and no bleeding was detected. He wa s brought into the emergency room yesterday with progressive fatigue and weakness poor appetite, vague back pain and lack of energy. An outside CAT scan of the chest abdomen pelvis revealed a large 9 cm exophytic solid renal mass strongly suggestive of malignancy with multiple lung nodules suggestive of metastatic disease and liver lesions. They were to be seen by oncology later this month. Due to the increased weakness he was brought into the ER instead. ET scan here revealed a right lung mass with multiple bilateral pulmonary nodules suspicious for neoplasm. There is a large superior pole right renal mass measuring 8.3 x 10.7 cm compatible with neoplasm. Small bilateral pleural effusions. He is seen today in consultation on the regular medical floor. He is currently resting fairly comfortably in bed. Awake and alert in no acute distress. He is maintaining O2 saturations in the 90s on room air. Afebrile. Hemodynamically stable. White count 7.0. Hemoglobin 7.8. Platelets 461. Sodium 139. Potassium 4.8. BUN 27. Creatinine 1.6. Iron 17. TIBC 213. Transferrin 152. Ferritin 169. AST 17. ALT 22. He's been initiated on iron supplements. Morphine and Dilaudid for back pain. Protonix for GI prophylaxis. On 09/10/2021 patient seen in follow-up on medical surgical floor. Patient is status post ultrasound-guided biopsy of the right renal mass. Patient out of procedure well, still were no immediate complications. Biopsy results are pending. Patient denies any distress, no respiratory difficulty, breathing comfortably, room air pulse ox is 93-97%, afebrile. Today's labs have been reviewed by blood cell count of 7.0, hemoglobin is 8.0, chloride is 108, the rest of electrolytes are within normal limits, renal profile is improving and the aorta is down to 19 creatinine is 1.29. Nephrology is following. Patient remains on IV fluids with 0.9 normal saline at a rate of 100 per hour. His calcium level is down to 10.1. He denies any chest pain or shortness of breath. His oral intake is fair. Objective - Vital Signs Vital signs: Vital Signs Temp 98.4 F 09/10/21 05:00 Pulse 88 09/10/21 05:00 Resp 16 09/10/21 05:00 BP 92/58 09/10/21 05:00 Pulse Ox 93 L 09/10/21 05:00 FiO2 Intake & Output 09/09/21 09/10/21 09/10/21 18:59 06:59 18:59 Intake Total 1600 Balance 1600 Intake: Intake, IV Titration 1200 Amount Sodium Chloride 0.9% 1, 1200 000 ml @ 100 mls/hr IV . Q10H SANTOS Rx#:[id number] Oral 400 Other: Voiding Method Toilet # Voids 2 4 # Bowel Movements 2 - Exam GENERAL EXAM: Alert, very pleasant, 60-year-old, on room air with a pulse ox of 93-97% comfortable in no apparent distress. HEAD: Normocephalic/atraumatic. EYES: Normal reaction of pupils, equal size. Conjunctiva pink, sclera white. NOSE: Clear with pink turbinates. THROAT: No erythema or exudates. NECK: No masses, no JVD, no thyroid enlargement, no adenopathy. CHEST: No chest wall deformity. Symmetrical expansion. LUNGS: Equal air entry with no crackles, wheeze, rhonchi or dullness. CVS: Regular rate and rhythm, normal S1 and S2, no gallops, no murmurs, no rubs ABDOMEN: Soft, nontender. No hepatosplenomegaly, normal bowel sounds, no guarding or rigidity. EXTREMITIES: No clubbing, no edema, no cyanosis, 2+ pulses and upper and lower extremities. MUSCULOSKELETAL: Muscle strength and tone normal. SPINE: No scoliosis or deformity SKIN: No rashes CENTRAL NERVOUS SYSTEM: Alert and oriented -3. No focal deficits, tone is normal in all 4 extremities. PSYCHIATRIC: Alert and oriented -3. Appropriate affect. Intact judgment and insight. - Labs CBC & Chem 7: 09/10/21 06:34 09/10/21 06:34 Labs: Abnormal Lab Results - Last 24 Hours (Table) 09/08/21 09/08/21 09/08/21 Range/Units 11:25 11:25 11:25 RBC (4.30-5.90) m/uL Hgb (13.0-17.5) gm/dL Hct (39.0-53.0) % MCV (80.0-100.0) fL MCH (25.0-35.0) pg Chloride (98-107) mmol/L Creatinine (0.66-1.25) mg/dL Albumin (PEP) 2.44 L (3.80-4.90) g/dL Rgzmn-3-Gkiyddyvh 0.65 H (0.10-0.40) g/dL Ssabq-8-Vmoiczprz 1.17 H (0.60-1.00) g/dL Vit D 1,25-Dihydroxy 12 L (20 - 79) pg/mL Free [place] LC, Quant 6.30 H (0.33-1.94) mg/dL Free Lambda LC, Quant 4.54 H (0.57-2.63) mg/dL 09/10/21 09/10/21 Range/Units 06:34 06:34 RBC 3.24 L (4.30-5.90) m/uL Hgb 8.0 L (13.0-17.5) gm/dL Hct 25.0 L (39.0-53.0) % MCV 77.1 L (80.0-100.0) fL MCH 24.5 L (25.0-35.0) pg Chloride 108 H (98-107) mmol/L Creatinine 1.29 H (0.66-1.25) mg/dL Albumin (PEP) (3.80-4.90) g/dL Vbuce-9-Kljlwonre (0.10-0.40) g/dL Hkibq-9-Fnqgptwqr (0.60-1.00) g/dL Vit D 1,25-Dihydroxy (20 - 79) pg/mL Free [place] LC, Quant (0.33-1.94) mg/dL Free Lambda LC, Quant (0.57-2.63) mg/dL Assessment and Plan Plan: Assessment: #1. Generalized weakness, fatigue, poor appetite and weight loss, rule out suspected malignancy most likely renal cell carcinoma versus lung primary. Patient status post ultrasound-guided biopsy of the right renal mass, biopsy results pending #2. Right kidney mass measuring 8.3 x 10.7 cm, and cannot exclude second solid mass of the left kidney, status post biopsy of the right renal mass, resolved pending #3. Multiple bilateral pulmonary nodules including a right perihilar mass measuring 6.0 x 3.8 cm #4. Lifelong nonsmoker #5. Anemia with recent endoscopies revealing no active bleeding #6. Back pain Plan: Patient underwent right renal mass biopsy by interventional radiology Biopsy results are still pending Vital signs are stable, no acute events overnight Patient could be considered for discharge home from pulmonary perspective if cleared by nephrology and medicine with outpatient follow-up in regards to results of the right renal biopsy I have personally seen and examined the patient, performed the documentation and the assessment and plan as written. Number of minutes spent on the visit: [15] Time with Patient: Less than 30
--- NOTE | 2021-09-10 12:52 | P.PN ---
Subjective Progress Note Date: 09/10/21 Hospital Course Patient is a 60-year-old male with anemia, GERD, HTN and recently discovered renal mass who presents to the emergency room with complaints of weakness and weight loss. He was seen at [facility] on 08/31/[address] abdomen and pelvis revealed a large 9 cm exophytic solid right renal mass strongly suggestive of malignancy along with metastatic lung nodules and multiple small liver lesions. They had contacted Dr. French and had a liver MRI set up for next week. La boratory evaluation in the emergency room was remarkable for hemoglobin 8.0, MCV 78.8, platelet count 530, sodium 133, potassium 5.3, BUN 54, creatinine 2.99, and calcium level 12.7. He was stared on IVF and arrangement were made for admission. He was seen by oncology and underwent CT chest abdomen and pelvis which again demonstrated lung masses, liver lesions, and right kidney lesion. Pulmonary was consulted who recommended IR guided biopsy. Urology was consulted who again recommended IR guided biopsy. This biopsy was completed on 09/09/21 results are pending. Patient seen and examined at bedside with present. We discussed the possibility of biopsy today. Patient reports he did not sleep much last night due to his IV beeping. He states his pain control was adequate and the morphine works well when he takes it. No nausea or vomiting. Subjective Patient seen and evaluated at bedside, today patient does not report any worsening of his breathing or report any new significant chest pain. Patient remains in no acute distress. Patient questions and concerns addressed at bedside, proper counseling done. Plan discussed with nursing staff. Physical exam General: non toxic, no acute distress, alert oriented to time place and person Head: atraumatic, normocephalic, symmetric Eyes: no lid lesion], anicteric sclera Mouth: no lip lesion, mucus membranes moist Cardiovascular: S1S2 reg rate and rhythm, no murmur, no gallop Lungs: Bilateral equal air entry, no wheezing no rhonchi no crackles. Abdominal: soft, nontender to palpation, no guarding, no appreciable organomegaly Ext: no gross muscle atrophy, no edema extremities warm to suppose a positive Neuro: Alert oriented to time place and person, exam grossly nonfocal Psych: Mood and affect appropriate, patient not so certain Skin exam: No rashes no jaundice. Assessment and plan Metastatic disease: Unknown primary: Right renal lesion, Lung masses Liver nodules -Nuclear medicine bone scan with no evidence of bony metastatic disease -Status post IR guided biopsy on 09/09/21 - Oncology, urology, and pulmonary recommendations appreciated -Pain control COURTNEY, hyperkalemia, and hypercalcemia Patient's creatinine 2 weeks ago prior to admission was 1.2. Acute kidney injury mostly prerenal secondary to hypotension, ARB-HCTZ, and hypercalcemia. Hypercalcemia secondary to hypovolemia, hctz and underlying malignancy. Maintain IV fluids. Continue to hold antihypertensives and diuretics. Status post IV zoledronic acid 09/08/2021. Anemia, thrombocytosis Suspect iron deficiency anemia with sat 8.18 and that ferritin is reactive to cancer Maintain IV iron. Await review by hematology/oncology DVT prophylaxis: Resume Lovenox Discussed with: Patient, , oncology, radiology nurse multiple times Anticipated discharge place: Home 1-2 days Objective - Vital Signs Vital signs: Vital Signs Temp 97.9 F 09/10/21 11:11 Pulse 85 09/10/21 11:11 Resp 16 09/10/21 11:11 BP 96/60 09/10/21 11:11 Pulse Ox 96 09/10/21 11:11 FiO2 Intake & Output 09/09/21 09/10/21 09/10/21 18:59 06:59 18:59 Intake Total 1600 Balance 1600 Intake: Intake, IV Titration 1200 Amount Sodium Chloride 0.9% 1, 1200 000 ml @ 100 mls/hr IV . Q10H SANTOS Rx#:[id number] Oral 400 Other: Voiding Method Toilet # Voids 2 4 # Bowel Movements 2 - Labs CBC & Chem 7: 09/10/21 06:34 09/10/21 06:34 Labs: Abnormal Lab Results - Last 24 Hours (Table) 09/08/21 09/08/21 09/08/21 Range/Units 11:25 11:25 11:25 RBC (4.30-5.90) m/uL Hgb (13.0-17.5) gm/dL Hct (39.0-53.0) % MCV (80.0-100.0) fL MCH (25.0-35.0) pg Chloride (98-107) mmol/L Creatinine (0.66-1.25) mg/dL Albumin (PEP) 2.44 L (3.80-4.90) g/dL Dgbya-9-Ujumkptbf 0.65 H (0.10-0.40) g/dL Didzl-1-Krssgkxat 1.17 H (0.60-1.00) g/dL Vit D 1,25-Dihydroxy 12 L (20 - 79) pg/mL Free [place] LC, Quant 6.30 H (0.33-1.94) mg/dL Free Lambda LC, Quant 4.54 H (0.57-2.63) mg/dL 09/10/21 09/10/21 Range/Units 06:34 06:34 RBC 3.24 L (4.30-5.90) m/uL Hgb 8.0 L (13.0-17.5) gm/dL Hct 25.0 L (39.0-53.0) % MCV 77.1 L (80.0-100.0) fL MCH 24.5 L (25.0-35.0) pg Chloride 108 H (98-107) mmol/L Creatinine 1.29 H (0.66-1.25) mg/dL Albumin (PEP) (3.80-4.90) g/dL Juolc-1-Zzwoavjzv (0.10-0.40) g/dL Xixft-4-Xwmfnqwnl (0.60-1.00) g/dL Vit D 1,25-Dihydroxy (20 - 79) pg/mL Free [place] LC, Quant (0.33-1.94) mg/dL Free Lambda LC, Quant (0.57-2.63) mg/dL
[2021-09-10] MEDS: MEGESTROL 40 MG TAB PO SCH ×3 (14:08→21:35)
[2021-09-10] MEDS ORDERED: MIRTAZAPINE 15 MG TAB PO SCH (21:00)
--- NOTE | 2021-09-10 22:03 | P.PN ---
Subjective Progress Note Date: 09/10/21 Principal diagnosis: metastatic malignant picture Long discussion with and patient He is status post Biopsy of Renal mass 09/09/21 Creatinine is improving Bone scan does not shpw evidence of cancer Objective - Vital Signs Vital signs: Vital Signs Temp 98.4 F 09/10/21 05:00 Pulse 88 09/10/21 05:00 Resp 16 09/10/21 05:00 BP 92/58 09/10/21 05:00 Pulse Ox 93 L 09/10/21 05:00 FiO2 Intake & Output 09/09/21 09/10/21 09/10/21 18:59 06:59 18:59 Intake Total 1600 Balance 1600 Intake: Intake, IV Titration 1200 Amount Sodium Chloride 0.9% 1, 1200 000 ml @ 100 mls/hr IV . Q10H SANTOS Rx#:[id number] Oral 400 Other: Voiding Method Toilet # Voids 2 4 # Bowel Movements 2 - Exam - Constitutional General appearance: cooperative - EENT Eyes: EOMI ENT: NA/AT - Respiratory Respiratory: bilateral: diminished - Cardiovascular Rhythm: regularly irregular - Gastrointestinal General gastrointestinal: soft - Integumentary Integumentary: pale - Musculoskeletal Musculoskeletal: generalized weakness - Labs CBC & Chem 7: 09/10/21 06:34 09/10/21 06:34 Labs: Abnormal Lab Results - Last 24 Hours (Table) 09/08/21 09/08/21 09/08/21 Range/Units 11:25 11:25 11:25 RBC (4.40-5.60) X 10*6/uL Hgb (13.0-17.0) g/dL Hct (39.6-50.0) % MCV (80.0-97.0) fL MCH (27.0-32.0) pg MCHC (32.0-37.0) g/dL RDW (11.5-14.5) % Plt Count (140-440) X 10*3/uL Immature Gran # (0.00-0.04) X 10*3/uL Lymphocytes # (0.90-5.00) X 10*3/uL Chloride (98-107) mmol/L Anion Gap (10.00-18.00) mmol/L Creatinine (0.6-1.5) mg/dL Est GFR (CKD-EPI)AfAm (60.0-200.0) Est GFR (CKD-EPI)NonAf (60.0-200.0) Calcium (8.7-10.3) mg/dL Alkaline Phosphatase (41-126) U/L Albumin (3.8-4.9) g/dL Albumin (PEP) 2.44 L (3.80-4.90) g/dL Albumin/Globulin Ratio (1.60-3.17) g/dL Zqyqe-8-Gowqjmwuq 0.65 H (0.10-0.40) g/dL Mtxbc-0-Xoipcalfe 1.17 H (0.60-1.00) g/dL Vit D 1,25-Dihydroxy 12 L (20 - 79) pg/mL Free [place] LC, Quant 6.30 H (0.33-1.94) mg/dL Free Lambda LC, Quant 4.54 H (0.57-2.63) mg/dL 09/09/21 09/09/21 09/10/21 Range/Units 05:57 05:57 06:34 RBC 3.43 L (4.40-5.60) X 10*6/uL Hgb 7.8 L (13.0-17.0) g/dL Hct 27.0 L (39.6-50.0) % MCV 78.7 L (80.0-97.0) fL MCH 22.7 L (27.0-32.0) pg MCHC 28.9 L (32.0-37.0) g/dL RDW 16.0 H (11.5-14.5) % Plt Count 461 H (140-440) X 10*3/uL Immature Gran # 0.07 H (0.00-0.04) X 10*3/uL Lymphocytes # 0.46 L (0.90-5.00) X 10*3/uL Chloride 108 H (98-107) mmol/L Anion Gap 7.70 L (10.00-18.00) mmol/L Creatinine 1.6 H 1.29 H (0.6-1.5) mg/dL Est GFR (CKD-EPI)AfAm 53.1 L (60.0-200.0) Est GFR (CKD-EPI)NonAf 45.8 L (60.0-200.0) Calcium 11.7 H (8.7-10.3) mg/dL Alkaline Phosphatase 134 H (41-126) U/L Albumin 3.0 L (3.8-4.9) g/dL Albumin (PEP) (3.80-4.90) g/dL Albumin/Globulin Ratio 0.91 L (1.60-3.17) g/dL Udwrt-3-Hmzfavvcu (0.10-0.40) g/dL Mbtfs-0-Facvkfvgg (0.60-1.00) g/dL Vit D 1,25-Dihydroxy (20 - 79) pg/mL Free [place] LC, Quant (0.33-1.94) mg/dL Free Lambda LC, Quant (0.57-2.63) mg/dL 09/10/21 Range/Units 06:34 RBC 3.24 L (4.40-5.60) X 10*6/uL Hgb 8.0 L (13.0-17.0) g/dL Hct 25.0 L (39.6-50.0) % MCV 77.1 L (80.0-97.0) fL MCH 24.5 L (27.0-32.0) pg MCHC (32.0-37.0) g/dL RDW (11.5-14.5) % Plt Count (140-440) X 10*3/uL Immature Gran # (0.00-0.04) X 10*3/uL Lymphocytes # (0.90-5.00) X 10*3/uL Chloride (98-107) mmol/L Anion Gap (10.00-18.00) mmol/L Creatinine (0.6-1.5) mg/dL Est GFR (CKD-EPI)AfAm (60.0-200.0) Est GFR (CKD-EPI)NonAf (60.0-200.0) Calcium (8.7-10.3) mg/dL Alkaline Phosphatase (41-126) U/L Albumin (3.8-4.9) g/dL Albumin (PEP) (3.80-4.90) g/dL Albumin/Globulin Ratio (1.60-3.17) g/dL Fxpni-5-Ucotkafjn (0.10-0.40) g/dL Ylfnj-0-Hdkpyhali (0.60-1.00) g/dL Vit D 1,25-Dihydroxy (20 - 79) pg/mL Free [place] LC, Quant (0.33-1.94) mg/dL Free Lambda LC, Quant (0.57-2.63) mg/dL Assessment and Plan (1) Microcytic anemia Current Visit: Yes Status: Acute Code(s): D50.9 - IRON DEFICIENCY ANEMIA, UNSPECIFIED SNOMED Code(s): 531789927 (2) Hypercalcemia Narrative/Plan: - Dr Soto, nephrology, has been consulted. hypercalcemia probable related to malignancy and dehydration, continue iV Fluids. - Status Post zometa due to renal insuffieincy - Await Calcium levels today, pending Current Visit: Yes Status: Acute Code(s): E83.52 - HYPERCALCEMIA SNOMED Code(s): 68568839 (3) Acute kidney insufficiency Narrative/Plan: Nephrology to evaluate, appears new, 08/04/21 Creatinine 1.2 Current Visit: Yes Status: Acute Code(s): N28.9 - DISORDER OF KIDNEY AND URETER, UNSPECIFIED SNOMED Code(s): 286417125 (4) Unintentional weight loss Narrative/Plan: >25lb Current Visit: Yes Status: Acute Code(s): R63.4 - ABNORMAL WEIGHT LOSS SNOMED Code(s): 006638354 (5) Renal mass Narrative/Plan: Status post biopsy of renal mass, there is concern of potential two primary cancers present, Await pathology if this is a renal cell carcinoma then will still need a biopsy of lung mass to rule out two primary lesions. Current Visit: Yes Status: Acute Code(s): N28.89 - OTHER SPECIFIED DISORDERS OF KIDNEY AND URETER SNOMED Code(s): 814017595 (6) Lung mass Current Visit: Yes Status: Acute Code(s): R91.8 - OTHER NONSPECIFIC ABNORMAL FINDING OF LUNG FIELD SNOMED Code(s): 069213890 Plan: Weakness, declined performance PT/OT Will need MRI brain for full staging prior to treatment initiation, at this time plan for outpatient as no disctinct symptoms Bone scan negative for cancer Await Path Follow-up in office next week
[2021-09-11 07:26] LABS: ALT 29 U/L (4-49); AST 28 U/L (17-59); African American GFR (CKD) 83 (>60 ml/min/1.73 sqM); Albumin 2.7 g/dL (3.5-5.0); Albumin/Globulin Ratio 0.8; Alkaline Phosphatase 153 U/L (38-126); Anion Gap 5 mmol/L; Blood Urea Nitrogen 17 mg/dL (9-20); Calcium 9.4 mg/dL (8.4-10.2); Carbon Dioxide 21 mmol/L (22-30); Chloride 110 mmol/L (98-107); Globulin 3.3 g/dL; Glucose 96 mg/dL (74-99); Magnesium 2.2 mg/dL (1.6-2.3); Non-African American GFR(CKD) 72 (>60 ml/min/1.73 sqM); Potassium 4.1 mmol/L (3.5-5.1); Sodium 136 mmol/L (137-145); Total Bilirubin 0.2 mg/dL (0.2-1.3)
[2021-09-11] MEDS: PANTOPRAZOLE 40 MG TABLET PO SCH (07:47)
[2021-09-11] MEDS: SODIUM CHLORIDE 0.9% 1,000 ML IV SCH (07:47)
[2021-09-11] MEDS: MEGESTROL 40 MG TAB PO SCH ×2 (07:48→11:52)
[2021-09-11] MEDS: SENNOSIDES-DOCUSATE SODIUM 1 EACH TAB PO SCH (07:48)
[2021-09-11] MEDS: LACTULOSE 20 GM/30 ML CUP PO SCH (07:48)
[2021-09-11] MEDS: SODIUM FERRIC GLUCONAT-SUCROSE 125 MG in SODIUM CHLORIDE 0.9% 100 ML IVPB SCH (08:55)
[2021-09-11 09:53] LABS: Basophils # (A) 0.03 X 10*3/uL (0.00-0.10); Basophils % (A) 0.4 %; Eosinophils # (A) 0.25 X 10*3/uL (0.04-0.35); Eosinophils % (A) 3.2 %; HCT 25.5 % (39.6-50.0); HGB 7.5 g/dL (13.0-17.0); Immature Grans, Automated 0.9 %; Lymphocytes % (A) 10.3 %; MCH 22.7 pg (27.0-32.0); MCHC 29.4 g/dL (32.0-37.0); Mean Platelet Volume 9.3 fL (9.5-12.2); Monocytes # (A) 1.01 X 10*3/uL (0.20-1.00); NRBC Per 100 WBC 0 /100 WBCS (0.0-0.0); Neutrophils # (A) 5.63 X 10*3/uL (1.80-7.70); Neutrophils % (A) 72.2 %; Platelet Count 477 X 10*3/uL (140-440); RBC 3.31 X 10*6/uL (4.40-5.60); WBC 7.79 X 10*3/uL (4.50-10.00)
--- NOTE | 2021-09-11 11:24 | P.PN ---
Subjective Patient is seen in follow-up for acute kidney injury. Renal function improving. Calcium level down to 9.4. Receiving IV fluids. Resting in bed. Denies chest pain or shortness of breath. Oral intake fair. Vital signs are stable. General: Awake. No acute distress. HEENT: Head exam is unremarkable. LUNGS: Breath sounds decreased. HEART: Rate and Rhythm are regular. ABDOMEN: Soft, no distention. EXTREMITITES: No edema. Objective - Vital Signs Vital signs: Vital Signs Temp 98.4 F 09/11/21 05:00 Pulse 81 09/11/21 05:00 Resp 18 09/11/21 05:00 BP 114/74 09/11/21 05:00 Pulse Ox 96 09/11/21 05:00 FiO2 Intake & Output 09/10/21 09/11/21 09/11/21 18:59 06:59 18:59 Intake Total 2980 1600 180 Balance 2980 1600 180 Intake: Intake, IV Titration 1400 1200 Amount Magnesium Sulfate-D5w Pmx 200 1 gm In Dextrose/Water 1 100ml.bag @ 100 mls/hr IVPB Q1H [facility]ANTOS Rx#: [id number] Sodium Chloride 0.9% 1, 1100 1200 000 ml @ 100 mls/hr IV . Q10H SANTOS Rx#:[id number] Sodium Ferric Gluconat- 100 Sucrose 125 mg In Sodium Chloride 0.9% 100 ml @ 100 mls/hr IVPB DAILY SANTOS Rx#:[id number] Oral 1580 400 180 Other: Voiding Method Toilet # Voids 3 3 # Bowel Movements 1 - Labs CBC & Chem 7: 09/11/21 05:40 09/11/21 05:40 Labs: Abnormal Lab Results - Last 24 Hours (Table) 09/11/21 09/11/21 Range/Units 05:40 05:40 RBC 3.31 L (4.40-5.60) X 10*6/uL Hgb 7.5 L (13.0-17.0) g/dL Hct 25.5 L (39.6-50.0) % MCV 77.0 L (80.0-97.0) fL MCH 22.7 L (27.0-32.0) pg MCHC 29.4 L (32.0-37.0) g/dL RDW 16.0 H (11.5-14.5) % Plt Count 477 H (140-440) X 10*3/uL MPV 9.3 L (9.5-12.2) fL Immature Gran # 0.07 H (0.00-0.04) X 10*3/uL Lymphocytes # 0.80 L (0.90-5.00) X 10*3/uL Monocytes # 1.01 H (0.20-1.00) X 10*3/uL Sodium 136 L (137-145) mmol/L Chloride 110 H (98-107) mmol/L Carbon Dioxide 21 L (22-30) mmol/L Alkaline Phosphatase 153 H (38-126) U/L Total Protein 6.0 L (6.3-8.2) g/dL Albumin 2.7 L (3.5-5.0) g/dL Assessment and Plan Plan: Assessment: 1. Acute kidney injury mostly prerenal secondary to hypotension, ARB-HCTZ, and hypercalcemia. Creatinine was 2.99 on admission - 1.1 today. Unknown baseline renal function.no hydronephrosis noted a kidney ultrasound. UA benign. Patient's creatinine 2 weeks ago prior to admission was 1.2. 2. Hypercalcemia secondary to hypovolemia, hctz and underlying malignancy. EVELINA 32. Vitamin D 41.9. 1,25D3 level 12. PTH low at 5. Calcium level trending down. 3. Hypovolemic hyponatremia improved with IV hydration. 4. Right renal mass with metastatic lung nodules and liver lesions noted on CAT scan done 08/31/2021. Renal mass biopsy done 09/09/2021. 5. Benign hypertension. Blood pressure 114/74 this morning. 6. Anemia. Iron deficiency noted. Receiving IV iron. Plan: Maintain IV fluids - decrease rate to 75 cc/hr. Status post IV zoledronic acid 09/08/2021. Continue to hold antihypertensives and diuretics. Avoid nephrotoxins. Follow-up pending workup for hypercalcemia. Biopsy results pending.
--- NOTE | 2021-09-11 11:26 | P.PN ---
Subjective Progress Note Date: 09/11/21 Principal diagnosis: Generalized weakness, fatigue, poor appetite Physical very pleasant 60-year-old male patient with a history of hypertension, gastroesophageal reflux disease, hiatal hernia. Lifelong nonsmoker. He recently been having issues with generalized weakness and fatigue and was found to be anemic. He had undergone colonoscopy and no bleeding was detected. He wa s brought into the emergency room yesterday with progressive fatigue and weakness poor appetite, vague back pain and lack of energy. An outside CAT scan of the chest abdomen pelvis revealed a large 9 cm exophytic solid renal mass strongly suggestive of malignancy with multiple lung nodules suggestive of metastatic disease and liver lesions. They were to be seen by oncology later this month. Due to the increased weakness he was brought into the ER instead. ET scan here revealed a right lung mass with multiple bilateral pulmonary nodules suspicious for neoplasm. There is a large superior pole right renal mass measuring 8.3 x 10.7 cm compatible with neoplasm. Small bilateral pleural effusions. He is seen today in consultation on the regular medical floor. He is currently resting fairly comfortably in bed. Awake and alert in no acute distress. He is maintaining O2 saturations in the 90s on room air. Afebrile. Hemodynamically stable. White count 7.0. Hemoglobin 7.8. Platelets 461. Sodium 139. Potassium 4.8. BUN 27. Creatinine 1.6. Iron 17. TIBC 213. Transferrin 152. Ferritin 169. AST 17. ALT 22. He's been initiated on iron supplements. Morphine and Dilaudid for back pain. Protonix for GI prophylaxis. On 09/10/2021 patient seen in follow-up on medical surgical floor. Patient is status post ultrasound-guided biopsy of the right renal mass. Patient out of procedure well, still were no immediate complications. Biopsy results are pending. Patient denies any distress, no respiratory difficulty, breathing comfortably, room air pulse ox is 93-97%, afebrile. Today's labs have been reviewed by blood cell count of 7.0, hemoglobin is 8.0, chloride is 108, the rest of electrolytes are within normal limits, renal profile is improving and the aorta is down to 19 creatinine is 1.29. Nephrology is following. Patient remains on IV fluids with 0.9 normal saline at a rate of 100 per hour. His calcium level is down to 10.1. He denies any chest pain or shortness of breath. His oral intake is fair. On 09/11/2021 patient seen in follow-up on medical surgical floor. His renal biopsy results are still pending, bone scan showed no evidence of metastatic disease. Patient is reading comfortably, room air pulse ox is 92-96%, he is resting comfortably in bed, remains on IV hydration with point normal saline at rate is 75 ML per hour. Today's calcium is 9.4. No nausea vomiting or diarrhea. No acute events overnight. Objective - Vital Signs Vital signs: Vital Signs Temp 98.4 F 09/11/21 05:00 Pulse 81 09/11/21 05:00 Resp 18 09/11/21 05:00 BP 114/74 09/11/21 05:00 Pulse Ox 96 09/11/21 05:00 FiO2 Intake & Output 09/10/21 09/11/21 09/11/21 18:59 06:59 18:59 Intake Total 2980 1600 180 Balance 2980 1600 180 Intake: Intake, IV Titration 1400 1200 Amount Magnesium Sulfate-D5w Pmx 200 1 gm In Dextrose/Water 1 100ml.bag @ 100 mls/hr IVPB Q1H [facility] Rx#: [id number] Sodium Chloride 0.9% 1, 1100 1200 000 ml @ 100 mls/hr IV . Q10H [facility] Rx#:[id number] Sodium Ferric Gluconat- 100 Sucrose 125 mg In Sodium Chloride 0.9% 100 ml @ 100 mls/hr IVPB DAILY [facility]OS Rx#:[id number] Oral 1580 400 180 Other: Voiding Method Toilet # Voids 3 3 # Bowel Movements 1 - Exam GENERAL EXAM: Alert, very pleasant, 60-year-old, on room air with a pulse ox of 93-97% comfortable in no apparent distress. HEAD: Normocephalic/atraumatic. EYES: Normal reaction of pupils, equal size. Conjunctiva pink, sclera white. NOSE: Clear with pink turbinates. THROAT: No erythema or exudates. NECK: No masses, no JVD, no thyroid enlargement, no adenopathy. CHEST: No chest wall deformity. Symmetrical expansion. LUNGS: Equal air entry with no crackles, wheeze, rhonchi or dullness. CVS: Regular rate and rhythm, normal S1 and S2, no gallops, no murmurs, no rubs ABDOMEN: Soft, nontender. No hepatosplenomegaly, normal bowel sounds, no guarding or rigidity. EXTREMITIES: No clubbing, no edema, no cyanosis, 2+ pulses and upper and lower extremities. MUSCULOSKELETAL: Muscle strength and tone normal. SPINE: No scoliosis or deformity SKIN: No rashes CENTRAL NERVOUS SYSTEM: Alert and oriented -3. No focal deficits, tone is normal in all 4 extremities. PSYCHIATRIC: Alert and oriented -3. Appropriate affect. Intact judgment and insight. - Labs CBC & Chem 7: 09/11/21 05:40 09/11/21 05:40 Labs: Abnormal Lab Results - Last 24 Hours (Table) 09/11/21 09/11/21 Range/Units 05:40 05:40 RBC 3.31 L (4.40-5.60) X 10*6/uL Hgb 7.5 L (13.0-17.0) g/dL Hct 25.5 L (39.6-50.0) % MCV 77.0 L (80.0-97.0) fL MCH 22.7 L (27.0-32.0) pg MCHC 29.4 L (32.0-37.0) g/dL RDW 16.0 H (11.5-14.5) % Plt Count 477 H (140-440) X 10*3/uL MPV 9.3 L (9.5-12.2) fL Immature Gran # 0.07 H (0.00-0.04) X 10*3/uL Lymphocytes # 0.80 L (0.90-5.00) X 10*3/uL Monocytes # 1.01 H (0.20-1.00) X 10*3/uL Sodium 136 L (137-145) mmol/L Chloride 110 H (98-107) mmol/L Carbon Dioxide 21 L (22-30) mmol/L Alkaline Phosphatase 153 H (38-126) U/L Total Protein 6.0 L (6.3-8.2) g/dL Albumin 2.7 L (3.5-5.0) g/dL Assessment and Plan Plan: Assessment: #1. Generalized weakness, fatigue, poor appetite and weight loss, rule out suspected malignancy most likely renal cell carcinoma versus lung primary. Patient status post ultrasound-guided biopsy of the right renal mass, biopsy results pending #2. Right kidney mass measuring 8.3 x 10.7 cm, and cannot exclude second solid mass of the left kidney, status post biopsy of the right renal mass, resolved pending #3. Multiple bilateral pulmonary nodules including a right perihilar mass measuring 6.0 x 3.8 cm #4. Lifelong nonsmoker #5. Anemia with recent endoscopies revealing no active bleeding #6. Back pain Plan: Renal biopsy results are still pending Clinical patient is stable, Today's labs reviewed showing improving renal function, calcium level is 9.4 No acute events overnight Patient could be considered for discharge home from pulmonary perspective if cleared by nephrology and medicine with outpatient follow-up in regards to results of the right renal biopsy I have personally seen and examined the patient, performed the documentation and the assessment and plan as written. Number of minutes spent on the visit: [15] Time with Patient: Less than 30
[2021-09-11 12:27] VITALS: BP 101/65; PULSE 84; RESP 16; TEMP 98.1
--- NOTE | 2021-09-11 15:18 | P.DS ---
Providers Date of admission: 09/08/21 00:07 Expected date of discharge: 09/11/21 Attending physician: Deep James MD Consults: 09/08/21 00:07 Consult Physician Routine Consulting Provider: Ubaldo Bradshaw Consult Reason/Comments: kidneyLiverCA Do you want consulting provider notified?: Yes Consult Physician Routine Consulting Provider: Whit Soto Consult Reason/Comments: courtney Do you want consulting provider notified?: Yes 09/08/21 08:02 Consult Physician Routine Consulting Provider: Myke Quijano Consult Reason/Comments: Right renal mass, see report on physical chart Do you want consulting provider notified?: Yes 09/08/21 14:34 Consult Physician Routine Consulting Provider: Erasmo Velasquez Consult Reason/Comments: Right Hilar Mass, Do you want consulting provider notified?: Yes 09/08/21 23:33 Consult Physician Urgent Consulting Provider: 09/08/21 23:34 Consult Physician Routine Consulting Provider: Yonatan Sanchez Consult Reason/Comments: ct guided bx of renal or pulmonary mass-- either fine with oncology Do you want consulting provider notified?: Yes, Notify in am 09/08/21 23:36 Consult Physician Routine Consulting Provider: Primary care physician: Stated None Hospital Course: Hospital Course Patient is a 60-year-old male with anemia, GERD, HTN and recently discovered renal mass who presents to the emergency room with complaints of weakness and weight loss. He was seen at [facility] on 08/31/[address] abdomen and pelvis revealed a large 9 cm exophytic solid right renal mass strongly suggestive of malignancy along with metastatic lung nodules and multiple small liver lesions. They had contacted Dr. French and had a liver MRI set up for next week. Laboratory evaluation in the emergency room was remarkable for hemoglobin 8.0, MCV 78.8, platelet count 530, sodium 133, potassium 5.3, BUN 54, creatinine 2.99, and calcium level 12.7. He was stared on IVF and arrangement were made for admission. He was seen by oncology and underwent CT chest abdomen and pelvis which again demonstrated lung masses, liver lesions, and right kidney lesion. Pulmonary was consulted who recommended IR guided biopsy. Urology was consulted who again recommended IR guided biopsy. This biopsy was completed on 09/09/21 results are pending. Assessment and plan Metastatic disease: Unknown primary: Right renal lesion, Lung masses Liver nodules -Nuclear medicine bone scan with no evidence of bony metastatic disease -Status post IR guided biopsy on 09/09/21 -Oncology follow up as OP, biopsy results pending COURTNEY, hyperkalemia, and hypercalcemia Patient's creatinine 2 weeks ago prior to admission was 1.2. Improving Acute kidney injury mostly prerenal secondary to hypotension, ARB-HCTZ, and hypercalcemia. Hypercalcemia secondary to hypovolemia, hctz and underlying malignancy. Status post IV zoledronic acid 09/08/2021. Continue to hold antihypertensives and diuretics on DC PCP follow up as OP Anemia, thrombocytosis Suspect iron deficiency anemia with sat 8.18 and that ferritin is reactive to cancer S/P IV iron tx in hospital Will prescribe Iron supplementation on DC Anticipated discharge place: Today back to home Assessment: Physical examination General: non toxic, no acute distress, alert oriented to time place and person Head: atraumatic, normocephalic, symmetric Eyes: no lid lesion], anicteric sclera Mouth: no lip lesion, mucus membranes moist Cardiovascular: S1S2 reg rate and rhythm, no murmur, no gallop Lungs: Bilateral equal air entry, no wheezing no rhonchi no crackles. Abdominal: soft, nontender to palpation, no guarding, no appreciable organomegaly Ext: no gross muscle atrophy, no edema extremities warm to suppose a positive Neuro: Alert oriented to time place and person, exam grossly nonfocal Patient Condition at Discharge: Fair Plan - Discharge Summary Discharge Rx Participant: No New Discharge Prescriptions: New Ferrous Sulfate [Iron (65 MG Elemental)] 325 mg PO DAILY 30 Days #30 tab Continue Omeprazole 20 mg PO DAILY traMADol HCL 50 mg PO TID Ondansetron [Zofran] 4 mg PO Q8HR PRN PRN Reason: Nausea Cyclobenzaprine [Flexeril] 10 mg PO TID PRN PRN Reason: Pain Discontinued Valsartan/Hydrochlorothiazide [Valsartan-Hctz 160-25 mg Tab] 1 tab PO DAILY Discharge Medication List Cyclobenzaprine [Flexeril] 10 mg PO TID PRN 09/07/21 [History] Omeprazole 20 mg PO DAILY 09/07/21 [History] Ondansetron [Zofran] 4 mg PO Q8HR PRN 09/07/21 [History] traMADol HCL 50 mg PO TID 09/07/21 [History] Ferrous Sulfate [Iron (65 MG Elemental)] 325 mg PO DAILY 30 Days #30 tab 09/11/21 [Rx] Follow up Appointment(s)/Referral(s): Ubaldo Bradshaw MD [STAFF PHYSICIAN] - 1 Week Braden Lux MD [STAFF PHYSICIAN] - 1 Week Patient Instructions/Handouts: Dehydration (DC), Hyperkalemia (DC) Discharge Disposition: HOME SELF-CARE
== END 2021-09-11 17:57 | disposition home or self-care (01) | DRG 699 ==
LOC: EC 19:40 → 4SSUR 09-08 00:07 → 5NMEDONC 09-08 00:45
PROVIDERS: ADMIT Internal Medicine; ATTEND Internal Medicine
PROC: 0TB03ZX Excision of Right Kidney, Percutaneous Approach, Diagnostic (ICD-10-PCS; principal; 2021-09-09)
DX: N28.89 Other specified disorders of kidney and ureter (principal); C78.01 Secondary malignant neoplasm of right lung; E87.1 Hypo-osmolality and hyponatremia; N17.9 Acute kidney failure, unspecified; E86.0 Dehydration; I95.9 Hypotension, unspecified; E86.1 Hypovolemia; D75.839 Thrombocytosis, unspecified; E87.5 Hyperkalemia; E83.52 Hypercalcemia; D50.9 Iron deficiency anemia, unspecified; I10 Essential (primary) hypertension; K21.9 Gastro-esophageal reflux disease without esophagitis; K44.9 Diaphragmatic hernia without obstruction or gangrene; G89.29 Other chronic pain; M54.50 Low back pain, unspecified; H91.90 Unspecified hearing loss, unspecified ear; R26.2 Difficulty in walking, not elsewhere classified; Z79.891 Long term (current) use of opiate analgesic; Z79.899 Other long term (current) drug therapy
CPT/HCPCS: 36415; 50200; 71046; 71250; 74176; 76770; 76942; 78306; 80048; 80053; 81003; 82140; 82164; 82306; 82607; 82652; 82728; 82746; 83540; 83550; 83605; 83615; 83690; 83735; 83883; 83970; 84100; 84165; 84443; 85025; 85027; 85045; 85610; 85730; 86334; 86335; 86850; 86900; 86901; 88305; 93005; 96360; 96361; 99285

== ENCOUNTER → 2021-09-13 | Outpatient (CLI) | payer OTHER ==
--- NOTE | 2021-09-13 13:54 | MR ---
EXAMINATION TYPE: MR brain wo/w con DATE OF EXAM: 09/13/2021 1:16 PM COMPARISON: NONE HISTORY: Lung mass. CONTRAST: Patient received 9 mL intravenous Gadavist gadolinium contrast. Multiplanar and multispin-echo imaging of the brain was performed . Pre and post contrast enhanced i mages are obtained. The ventricles, basal cisterns and sulci overlying the cerebral convexities are mildly enlarged. There is evidence of mild periventricular white matter ischemic demyelination. Remote deep white matter insults are also noted. No acute edema is seen on diffusion weighted imaging. There is no evidence for midline shift or mass effect. Acute intracranial hemorrhage or extra-axial collection is not evident. No enhancing lesions are seen. The paranasal sinuses and mastoid air cells are well-aerated. IMPRESSION: Age-related atrophic and chronic small vessel ischemic change. No acute intracranial process at this time. No enhancing lesions are seen.
== END | disposition home or self-care (01) ==
LOC: RADMRIMAIN 12:07
PROVIDERS: ATTEND Internal Medicine
DX: G31.9 Degenerative disease of nervous system, unspecified (principal); I67.82 Cerebral ischemia
CPT/HCPCS: 70553

== ENCOUNTER → 2021-09-16 | Outpatient (CLI) | payer OTHER ==
--- NOTE | 2021-09-20 09:44 | PE ---
Nuclear medicine PET/CT HISTORY: J98.4, pulmonary nodules, initial, patient received 11.6 mCi F-18 FDG intravenously and delayed scanning was performed from skull base t o the mid thighs. Localization and attenuation correction CT scan was performed. Correlation to prior CT dated 09/08/2021, bone scan 09/09/2021 her graft average mediastinal uptake SUV i s 2.2, average liver uptake SUV is 2.8 Neck and chest: There is no cervical or supraclavicular adenopathy. Multiple lung nodules are present bilaterally which show associated hypermetabolic uptake SUV 2.8-10, patient's mass in the right lowe r lobe shows SUV 10.9. There is a right pleural effusion. There is right hilar and subcarinal adenopa thy and associated hypermetabolic uptake, SUV is 9-13.6. Large hiatal hernia with partial intrathorac ic stomach is noted. Pleural-based nodule is present on axial image #132 showing hypermetabolic uptak e along the anterior margin of the left lower chest SUV 8.3 ABDOMEN: Large right renal mass is present with associated hypermetabolic uptake SUV 21. No evident r etroperitoneal adenopathy or associated hypermetabolic uptake. No evident liver mass. No pelvic adeno ortiz. Osseous structures: There is abnormal hypermetabolic uptake involving the right superior pubic ramus, there is an associated lytic lesion at this level. SUV is 19.6 IMPRESSION: Metastatic disease
== END | disposition home or self-care (01) ==
LOC: RADPETMAIN 15:29
PROVIDERS: ATTEND Internal Medicine
DX: J98.4 Other disorders of lung (principal)
CPT/HCPCS: 78815; A9552

== ENCOUNTER 2021-09-22 12:53 | Day surgery (SDC) | payer OTHER ==
[2021-09-21 08:58] VITALS: BMI 25.9
[~2021-09-22 12:53] MED LIST: ALBUTEROL NEB (CONC) 2.5 MG/0.5 ML INHALATION ONE; DEXAMETHASONE SOD PHOSPHATE 4 MG/ML 1 ML VIAL IV ONE; LACTATED RINGERS 1,000 ML IV SCH; LIDOCAINE 1% (10MG/ML) FOR IV START INTRADERMA PRN; LIDOCAINE 2% (PF) 20 MG/ML 5 ML VIAL INHALATION ONE; LIDOCAINE VISCOUS 300 MG/15 ML CUP MUCOUS MEM ONE; ONDANSETRON 4 MG/2 ML VIAL IVP PRN; SODIUM CHLORIDE 0.9% 1,000 ML IV SCH
[2021-09-22] MEDS ORDERED: ONDANSETRON 4 MG/2 ML VIAL IVP ONE (14:11)
--- NOTE | 2021-09-22 14:46 | CT ---
EXAMINATION TYPE: CT Chest franklyn Alvarado Protocol DATE OF EXAM: 09/22/2021 COMPARISON: PET/CT 09/20/2021, CT 09/08/2021 HISTORY: Pulmonary nodules CT DLP: 624 mGycm Automated exposure control for dose reduction was used. FINDINGS: There is right renal mass partially visualized. There is a moderate to large hiatal hernia present. M ultiple pulmonary nodules consistent with metastatic disease are present. The largest nodule in the r ight upper and middle lobe measures up to 5.1 x 3.4 cm. Nodular appearance to the pleura on the right suggests pleural metastatic disease as well. IMPRESSION: Metastatic disease and right renal mass as described on prior CT/PET.
[2021-09-22] MEDS ORDERED: GLYCOPYRROLATE 0.2 MG/ML 2 ML VIAL ONE (15:29)
[2021-09-22] MEDS ORDERED: SUCCINYLCHOLINE CHLORIDE 100 MG/5 ML SYR IV ONE (15:29)
[2021-09-22] MEDS ORDERED: fentaNYL (PF) 50 MCG/ML 2 ML AMP ONE (15:29)
[2021-09-22] MEDS ORDERED: ROCURONIUM 10 MG/ML (5 ML VIAL) IV ONE (15:29)
[2021-09-22] MEDS ORDERED: NEOSTIGMINE 1 MG/ML 10 ML VIAL ONE (15:29)
[2021-09-22] MEDS ORDERED: PROPOFOL 10 MG/ML 20 ML VIAL IV ONE (15:29)
[2021-09-22] MEDS ORDERED: LIDOCAINE 2% INJ 20 MG/ML (2 ML VIAL) ONE (15:29)
[2021-09-22] MEDS ORDERED: MIDAZOLAM 2 MG/2 ML VIAL ONE (15:29)
--- NOTE | 2021-09-22 16:49 | P.PCN ---
Date of Procedure: 09/22/21 Operative Findings: Postoperative Diagnosis: 1 right upper lobe mass in addition to multiple bilateral pulmonary nodules 2 mediastinal lymphadenopathy Procedure(s) Performed: 1 flexible bronchoscopy, airway inspection 2 EBUS and transbronchial needle aspirate of the subcarinal lymph node 3 navigation bronchoscopy, transbronchial biopsy of a right right upper lobe mass Surgeon: Erasmo Velasquez [employer] #1: greyson escamilla Estimated Blood Loss (ml): 5 cc Pathology:Transbronchial needle aspirate of subcarinal lymph nodes, gastroc a biopsy of the right upper lobe mass Condition: stable Disposition: same day Operative Findings: The patient had a preoperative computed tomography scan of the chest using the Veran protocol. The CAT scan images were reviewed. The rightupper lobe lobe opacity was identified it was mapped appropriately. The CAT scan images are uploaded into a USB and then into the [facility] Navigation tower. After obtaining the consent the patient was taken to the OR suite he was intubated and put on mechanical ventilation by anesthesia then the scope was advanced to the ET tube until the Trachea was seen and it was normal and then the shruti appears normal then the scope advanced to the left main and JOAQUÍN LB1- LB3 were seen and no endobronchial lesions were seen then the scope advanced to the lingula and the LB4 and LB5 were seen and no endobronchial lesions were seen the scope retracted and advanced to the left lower lobes LB6 to LB12 were seen one by one and no endobronchial lesions, then the scope was retracted back to the shruti and advanced to the Right main and RUL RB1 and RB2 and RB3 were seen one by one and no endobronchial lesions were seen the scope. The bronchoscope was then retracted and advanced to the BI and RML RB4 and RB5 were seen and no endobronchial lesions were seen then it was retracted and advanced to the RLL RB6 to RB12 were seen one by one and no endobronchial lesions. Navigation bronchoscopy was performed. The main shruti and the secondary shruti on the left were used as the reference points and appropriate calibration was done. Following that, using a navigation guidance , the bronchoscope was advanced to the right upper lobe posterior segment and transbronchial biopsies. Multiple transjugular biopsy obtained without any complications. No significant bleeding. The regular bronchoscope was removed and the EBUS bronchoscopy was performed. The EBUS bronchoscope identified a large subcarinal lymph node measuring 2 x 1.5 cm in size. Chest markedly less with of the subcarinal station 7 lymph node was done and a total of 5 passes were taken. Adequacy of the samples were checked by pathology the bedside. There was viable and adequate tissue. The rest of the samples were sent into cell blocks. At that point, the bronchoscope was removed. The procedure was terminated. Therapeutic airway suctioning was done. No evidence of any residual blood within the airway. The bronchoscope was removed, the patient will be extubated and then transferred to recovery. A follow-up chest x-ray will be done in recovery.
[2021-09-22 16:52] VITALS: TEMP 97.9
[2021-09-22 17:46] VITALS: RESP 15
--- NOTE | 2021-09-22 18:08 | XR ---
EXAMINATION: XR chest 1V DATE AND TIME: 09/22/2021 5:28 PM CLINICAL INDICATION: post bronch matthew TECHNIQUE: Departmental protocol COMPARISON: 09/07/2021 FINDINGS: The previously seen 5 cm right mid lung mass is redemonstrated. No pneumothorax. There is evidence of minimal right pleural effusion. Left pleural spaces negative. The cardiac silhouette is not enlarged. Intrathoracic stomach redemonstrated. The skeletal structures and soft tissues are negative for acute findings. IMPRESSION: No definite new radiograph process.
[2021-09-22 18:11] VITALS: BP 95/59; PULSE 82
== END 2021-09-22 18:22 | disposition home or self-care (01) ==
LOC: ORWHC2ENDO 12:53
PROVIDERS: ATTEND Internal Medicine Critical Care Medicine
DX: R91.8 Other nonspecific abnormal finding of lung field (principal); R59.0 Localized enlarged lymph nodes; I10 Essential (primary) hypertension; K21.9 Gastro-esophageal reflux disease without esophagitis; C34.90 Malignant neoplasm of unspecified part of unspecified bronchus or lung; Z79.899 Other long term (current) drug therapy; Z80.0 Family history of malignant neoplasm of digestive organs; Z82.49 Family history of ischemic heart disease and other diseases of the circulatory system; C64.9 Malignant neoplasm of unspecified kidney, except renal pelvis
CPT/HCPCS: 88305; 88173; 88342; 88341; 71045; 71250; 31628; 31627; 31652; J2250; J1100; J2710; J2405; J3010; J0330; J2704; J2001; 31625

== ENCOUNTER → 2021-11-29 | Outpatient (CLI) | payer OTHER ==
--- NOTE | 2021-11-29 16:03 | XR ---
Right hip HISTORY: Renal cell carcinoma, numbness in right leg, pain 2 views of the right hip Osteoarthritic changes are present, there is joint space loss, marginal spurring. Bone mineralization is maintained. No fracture or dislocation. IMPRESSION: Osteoarthritis.
== END | disposition home or self-care (01) ==
LOC: RADXRMAIN 13:03
PROVIDERS: ATTEND Internal Medicine
DX: M16.11 Unilateral primary osteoarthritis, right hip (principal)
CPT/HCPCS: 73502

== ENCOUNTER → 2021-12-23 | Outpatient (CLI) | payer OTHER ==
--- NOTE | 2021-12-24 10:49 | PE ---
EXAMINATION TYPE: PET CT fusion skull to thigh DATE OF EXAM: 12/23/2021 CLINICAL INDICATION:Male, 61 years old with history of C641; TECHNIQUE: Following the intravenous administration of 11.8 mCi of F-18 FDG, whole body images are performed from the skull base to the midthigh. Images are reviewed on the computer in the coronal, a xial, and sagittal planes. Reconstructed rotating images are created on independent workstation and reviewed on the computer. A non-contrast CT is performed in conjunction with the PET scan. Glucose level 93 mg/dL COMPARISON: CT 09/22/2021, PET/CT 09/16/2021, FINDINGS: Mediastinal SUV mean is 1.3. Hepatic parenchyma SUV mean is 1.8. SKULL BASE AND NECK: No suspicious FDG activity. CHEST, MEDIASTINUM, AND HILAR REGION: * Left upper lobe pulmonary nodule with max SUV 8.2 pulmonary previously 12.0 and measuring 12 mm pr eviously 18 mm. * Other areas within the chest seen on prior have decreased in size and FDG activity. The largest in the right upper lobe measuring up to 3.2 x 1.8 cm, previously 5.9 x 3.5 cm in max SUV 0.9, previousl y 14.3. Other areas within the mediastinum seen on prior including subcarinal lymph node, right pulmonary hil um lymph nodes have also decreased in FDG activity with no evidence for FDG activity above background levels at this time. No size is also decreased ABDOMEN AND PELVIS: Right renal mass with suspected central cavitation and central calcifications have decreased in size measuring up to 6.7 cm, previously 7.7 cm. The measurements are slightly limited given lack of IV con trast. Limited for abnormal metabolic activity due to its close proximity to the renal collecting sys tem. There is FDG along the peripheral cortex with max SUV 3.2 cm. OSSEOUS STRUCTURES: No suspicious FDG activity. OTHER CT: Heterogenous thyroid gland with multiple thyroid nodules. There remains a large hiatal obdulia ia. Scattered atherosclerosis of the arterial vasculature. Few scattered clonic diverticula are prese nt. The bladder is nondistended and suboptimally evaluated. Affecting umbilical hernia. Heart is mild ly enlarged for size. There is moderate to severe coronary artery atherosclerosis. IMPRESSION: Positive response to therapy with decrease in size and FDG activity of almost all metastatic lesions within the thorax. There remains one focus of abnormal FDG activity along the medial pleural surface of the left upper lobe near the apex which remains with elevated FDG activity. The remainder of the t horax metastatic disease as well as suspected right kidney lesion have drastically decrease in FDG ac tivity and size. Primary malignancy FDG activity is slightly limited due to close proximity of the co llecting system lung medial aspect. It is felt that it has also decreased in FDG activity.
== END | disposition home or self-care (01) ==
LOC: RADPETMAIN 07:03
PROVIDERS: ATTEND Internal Medicine
DX: C64.1 Malignant neoplasm of right kidney, except renal pelvis (principal)
CPT/HCPCS: 78815; A9552

== ENCOUNTER → 2022-01-06 | Outpatient (CLI) | payer OTHER ==
--- NOTE | 2022-01-07 11:35 | MR ---
EXAMINATION TYPE: MR lumbar spine wo/w con DATE OF EXAM: 01/06/2022 11:24 AM COMPARISON: PET 12/23/2021. CT 09/08/2021. CLINICAL INDICATION:Male, 61 years old with history of C64.1 MALIGNANT NEOPLASM OF RIGHT KIDNEY TECHNIQUE: Multi planar, multi sequence imaging was performed utilizing: T1-weighted, T2-weighted, a nd turbo inversion recovery imaging of the lumbar spine. IV Contrast: 8.5 cc Gadavist FINDINGS: Alignment: The lumbar vertebral bodies have preserved heights and alignment. Cord: The conus medullaris and the distal spinal cord appear unremarkable with regards to their signa l intensity and morphology. There is left paraspinal soft tissue which enhances best appreciated on s eries 1001 image 12 measuring 14 x 9 mm at the level of L4-L5. Bones/Discs: Scattered Modic endplate changes are seen throughout the spine. Findings are worse at L5 -S1. Mild bony edema at the adjoining endplates of L5 and S1 likely secondary to disc degeneration. T here is a L3 vertebral body subtle low T1 high T2 high STIR with post contrast enhancement area measu ring 6 mm L1-L2: No significant disc pathology. Spinal canal is patent. The neural foramen are patent. L2-L3: Disc bulge and facet joint arthropathy result in no significant spinal canal stenosis and mild bilateral neural foraminal stenosis. L3-L4: Disc bulge and facet joint arthropathy result in mild spinal canal stenosis and moderate bilat eral neural foraminal stenosis. L4-L5: Disc bulge with superimposed left central protrusion and facet joint arthropathy result in mil d spinal canal stenosis and moderate bilateral neural foraminal stenosis. L5-S1: Disc bulge and facet joint arthropathy result in no significant spinal canal stenosis and mode rate bilateral neural foraminal stenosis. Other findings: Right renal mass is partially visualized. IMPRESSION: 1. No definitive evidence of disc herniation or significant spinal canal stenosis. 2. 6 mm focus of enhancement within the L3 vertebral body without CT or/PET/CT correlate on 12/24/19 22. Attention on short-term follow-up imaging. Focus of metastatic disease not entirely excluded. 3. L4-L5 left extraforaminal enhancing soft tissue which is not FDG avid on prior PET/CT and not sign ificantly changed in size from prior CT on 09/08/2021. Etiology is uncertain could be a nerve sheath tu mor versus other etiologies.
== END | disposition home or self-care (01) ==
LOC: RADMRIMAIN 10:02
PROVIDERS: ATTEND Internal Medicine
DX: C64.1 Malignant neoplasm of right kidney, except renal pelvis (principal)
CPT/HCPCS: 72158; A9585

== ENCOUNTER → 2022-01-11 | Outpatient (CLI) | payer OTHER ==
--- NOTE | 2022-01-12 04:01 | MR ---
EXAMINATION TYPE: MR brain wo/w con DATE OF EXAM: 01/11/2022 COMPARISON: 09/13/2021 HISTORY: Lung cancer, dizziness, bilateral hearing loss. CONTRAST: Standard multiplanar, multisequence MRI departmental protocol images were obtained without contrast a nd with 9 mL intravenous Gadavist gadolinium contrast. There is mild cerebral cortical atrophy. There is no mass effect or midline shift. No sign of intracr anial hemorrhage. There are white matter small foci of increased signal on the diffusion images in th e left and right frontal lobe close to the frontal horns of the lateral ventricles. There is also a s tony 5 mm focus in the right internal capsule near the genu. The brainstem is intact. Posterior keith a appears intact. No evidence of cerebellar mass. The corpus callosum is intact. Sella turcica appear s normal. No evidence of orbital mass. The contrast images show no pathologic enhancement. There is normal enhancement of the venous sinuses . On the FLAIR images there are scattered white matter high signal foci at the velasco-white matter juncti on both cerebral hemispheres that measure up to 7 mm. Total number is approximately 10. There is no e vidence of cortical infarct. IMPRESSION: Mild atrophy. No evidence of metastatic disease. Scattered white matter high signal foci suggestive o f microvascular ischemia. There is likely subacute small infarcts in the posterior frontal lobe white matter and the right capsule which appear new compared to old exam.
== END ==
LOC: RADMRIMAIN 21:45
PROVIDERS: ATTEND Internal Medicine
DX: C64.1 Malignant neoplasm of right kidney, except renal pelvis (principal)
CPT/HCPCS: 70553; A9585

== ENCOUNTER → 2022-09-20 | Outpatient (CLI) | payer OTHER ==
[2022-09-20 12:47] LABS: African American GFR (CKD) >90 (>60 ml/min/1.73 sqM); Blood Urea Nitrogen 11 mg/dL (9-20); Non-African American GFR(CKD) >90 (>60 ml/min/1.73 sqM)
--- NOTE | 2022-09-20 23:25 | CT ---
EXAMINATION TYPE: CT ChestAbdPelvis w con DATE OF EXAM: 09/20/2022 COMPARISON: 05/12/2022 HISTORY: 61-year-old male C6 4.1, RT renal cancer TECHNIQUE: Contiguous axial scanning of the chest, abdomen, and pelvis performed with IV Contrast, pa tient injected with 100 mL of Isovue 300. Delayed images through the kidneys were obtained. Coronal/s agittal reconstructions performed. CT DLP: 671.40 mGycm Automated exposure control for dose reduction was used. FINDINGS: CHEST: The heart is normal size with ar small anterior pericardial effusion which has slightly increased now measuring 1.1 cm thick. LAD coronary artery calcifications. Aorta normal caliber with conventional arch vessel branching anatomy. No thoracic lymphadenopathy by CT size criteria.. Subpleural nodule medial left upper lobe measures 2.1 cm now, unchanged. 2 separate nodules are now confluent extending to the pleural surface laterally apex, slightly larger now at 5.6 x 2.3 cm versus 4.5 cm, previously. A 1.4 cm subpleural nodule lateral left upper lobe previously 8 mm. Right midlung irregular opacity 2.2 cm versus 1.9 cm, previously. 1.1 cm subpleural nodule anterior right middle lobe versus 1.0 cm, previously. 3.0 cm basilar anterior segment left lower lobe mass versus 2.7 cm, previously. Some internal cavitar y change now noted. 2.2 cm subpleural nodule posterior left base versus 1.6 cm, previously. A few additional scattered 5 mm smaller nodules are also redemonstrated. ABDOMEN: The patient's previous very large hiatal hernia has significantly improved but now there is a herniat ion of nonobstructed transverse colon. There is moderate overall small burden without pericolonic inf lammatory change. Oral contrast has progressed to the cecum. A 1.1 cm hypodensity inferior right liver lobe remains unchanged, probable rest within the liver. A f ew additional tiny hypodensities remain nonspecific. One of these are very tiny measuring up to 6 mm lateral right liver lobe, axial image 66 may have corresponded to the metabolic nodule on prior PET/C T. Portal venous system is patent. No biliary ductal dilatation. Gallbladder, left adrenal gland, spleen, and pancreas show no gross abnormal body. A few scattered benign renal cortical cysts are present on both sides. Additional parapelvic cysts in the left kidney. An indeterminate 2.8 cm cortical mass anterior upper pole left kidney is smaller compared to 4.2 cm, previously. Ongoing surveillance recommended. The patient's large heterogeneously enhancing and centrally necrotic mass occupying most of the upper and midpole of the right kidney measures roughly stable at 10.0 x 7.2 cm (versus 10.3 x 7.4 cm, prev iously). Redemonstrated extension to involve and narrows the lumen of the right renal collecting syst em. Additional redemonstration of probable bland thrombus extending into the right renal vein. Neovas cularization redemonstrated in the perirenal space. Some retroperitoneal nodes measure up to 1.4 cm, slightly larger from 1.0 cm, previously. No dilated small bowel, free fluid, or free air. No additional mesenteric adenopathy. PELVIS: Bladder are distended. Pelvic phleboliths. No abnormal fluid collection in the pelvis or pelvic lymph adenopathy. BONES: Moderate degenerative change right hip and mild at the left hip. Moderate degenerative disc disease L 5-S1. No osseous destructive process. IMPRESSION: 1. FINDINGS SUGGEST SLIGHT INTERVAL DISEASE PROGRESSION. MULTIPLE PULMONARY NODULES AND MASSES ARE R EDEMONSTRATED. THE LARGEST OF THESE HAVE SLIGHTLY INCREASED IN SIZE AND HAVE BECOME MORE CONGLOMERATE SUCH AT THE LATERAL LEFT APEX MEASURING UP TO 5.6 CM WIDE NOW VERSUS 4.5 CM, PREVIOUSLY. 2. A RETROPERITONEAL NODE IS SLIGHTLY LARGER AT 1.4 CM VERSUS 1.0 CM PREVIOUSLY. 3. THE LARGE HETEROGENEOUSLY ENHANCING AND CENTRALLY NECROTIC RCC OCCUPYING MOST OF THE UPPER AND FL DPOLE OF THE RIGHT KIDNEY MEASURES ROUGHLY STABLE AT 10.0 CM. REDEMONSTRATED INVASION OF THE RIGHT RE NAL COLLECTING SYSTEM AND PROBABLE BLAND THROMBUS EXTENDING INTO THE RIGHT RENAL VEIN. 4. THE PREVIOUS TINY FOCUS OF HYPERMETABOLISM IN THE POSTERIOR RIGHT LIVER LOBE PROBABLY CORRESPONDS TO A 6 MM HEPATIC LESION ON THE CURRENT EXAM. 5. AN INDETERMINATE ANTERIOR LEFT UPPER POLE RENAL MASS IS SMALLER AT 2.8 CM VERSUS 4.2 CM, PREVIOUS LY. ONGOING SURVEILLANCE RECOMMENDED GIVEN ITS INDETERMINATE, POSSIBLY SUSPICIOUS CHARACTERISTICS, DE SPITE THE DECREASE IN SIZE. 6. INCIDENTAL: THE PREVIOUS gastric HERNIATION INTO THE LOWER CHEST HAS RESOLVED. HOWEVER, NOW, THER E IS A SEGMENT OF HERNIATED NONOBSTRUCTED TRANSVERSE COLON INTO THE LOWER CHEST.
== END | disposition home or self-care (01) ==
LOC: RADCTMAIN 12:02
PROVIDERS: ATTEND Internal Medicine
DX: Z03.89 Encounter for observation for other suspected diseases and conditions ruled out (principal); C64.1 Malignant neoplasm of right kidney, except renal pelvis; R91.8 Other nonspecific abnormal finding of lung field; K63.89 Other specified diseases of intestine
CPT/HCPCS: 82565; 84520; 71260; 74177; 36415; Q9967

== ENCOUNTER 2022-10-02 13:57 | Emergency (ER) | payer OTHER ==
[2022-10-02 14:26] VITALS: RESP 16; TEMP 98.3
--- NOTE | 2022-10-02 15:27 | ED ---
General Adult HPI - General Source: patient, RN notes reviewed Mode of arrival: wheelchair Limitations: no limitations <Jessica Alcazar - Last Filed: 10/02/22 15:26> <Gabrielle Reynoso - Last Filed: 10/05/22 23:57> - General Chief complaint: Recheck/Abnormal Lab/Rx Stated complaint: Dehydrated, Vomiting Time Seen by Provider: 10/02/22 15:26 - History of Present Illness Initial comments: Patient is a 61-year-old year-old male who presents to the emergency department for vomiting. Patient feels dehydrated. He has renal cancer and had an iron infusion on Sunday. (Jessica Alcazar) Quick note reviewed: When I evaluated patient this is a 61-year-old male with past medical history significant for cancer presents to the emergency department for vomiting. Patient reports that he had an iron infusion on Sunday09/29/2022 in preparation for his cancer treatment. He sees Dr. French for his management. He reports worsening nausea, vomiting and fatigue. He reports that he feels dehydrated. He has taken Zofran with mild symptomatically relief. He denies any known fevers, cough, chills, chest pain, shortness of breath, abdominal pain, melena, hematochezia, hematemesis (Gabrielle Reynoso) - Related Data Home Medications Medication Instructions Recorded Confirmed Omeprazole 20 mg PO DAILY 09/07/21 10/03/22 Hydrocortisone [Cortef] 5 mg PO HS 10/02/22 10/03/22 Hydrocortisone [Cortef] 10 mg PO BID@0900,1500 10/02/22 10/03/22 Levothyroxine Sodium [Synthroid] 100 mcg PO DAILY 10/02/22 10/03/22 Ondansetron Odt [Zofran ODT] 4 mg PO Q8HR PRN 10/02/22 10/03/22 Allergies Allergy/AdvReac Type Severity Reaction Status Date / Time No Known Allergies Allergy Verified 10/03/22 18:13 Review of Systems ROS Other: All systems not noted in ROS Statement are negative. <Jessica Alcazar - Last Filed: 10/02/22 15:26> ROS Other: All systems not noted in ROS Statement are negative. <Gabrielle Reynoso - Last Filed: 10/05/22 23:57> ROS Statement: Those systems with pertinent positive or pertinent negative responses have been documented in the HPI. Past Medical History Past Medical History: Cancer, GERD/Reflux, Hypertension Additional Past Medical History / Comment(s): History of high blood pressure. Newly dx. cancer, / kidney, chronic cough, possible lung ca History of Any Multi-Drug Resistant Organisms: None Reported Past Surgical History: Orthopedic Surgery Additional Past Surgical History / Comment(s): left arm, bx. of R kidney, colonoscopy Past Anesthesia/Blood Transfusion Reactions: No Reported Reaction Past Psychological History: No Psychological Hx Reported Smoking Status: Never smoker Past Alcohol Use History: None Reported Past Drug Use History: Marijuana - Past Family History Mother Family Medical History: Hypertension Father Family Medical History: Cancer Additional Family Medical History / Comment(s): colon <Jessica Alcazar - Last Filed: 10/02/22 15:26> General Exam Limitations: no limitations <Jessica Alcazar - Last Filed: 10/02/22 15:26> <Gabrielle Reynoso - Last Filed: 10/05/22 23:57> - General Exam Comments Initial Comments: Visual Physical Exam Vital signs reviewed General: Well-appearing, nontoxic, no acute distress. Head: Normocephalic, atraumatic Eyes: PERRLA, EOMI ENT: Airway patent Chest: Nonlabored breathing Skin: No visual rash, normal skin tone Neuro: Alert and oriented 3 Musculoskeletal: No gross abnormalities (Jessica Alcazar) General: Alert, in no acute distress Head: atraumatic normocephalic. Eyes PERRL, EOMI intact, mucous membranes moist Respiratory: Lungs clear to auscultation bilaterally Cardiovascular: Heart rate regular rate and rhythm Abdominal: Soft without guarding or rebound Extremities: Normal inspection with full range of motion and normal capillary refill Neuroogic: alert and oriented 3, CN II-XII intact, able to ambulate with steady gait Skin: warm dry and intact with normal color (Gabrielle Reynoso) Course Vital Signs 10/02/22 10/02/22 10/02/22 14:23 18:45 20:23 Temperature 98.3 F Pulse Rate 91 80 Respiratory 16 16 16 Rate Blood Pressure 101/71 95/62 O2 Sat by Pulse 95 97 Oximetry Medical Decision Making <Jessica Alcazar - Last Filed: 10/02/22 15:26> - Lab Data Result diagrams: 10/02/22 16:35 10/02/22 16:35 <Gabrielle Reynoso - Last Filed: 10/05/22 23:57> - Medical Decision Making I performed the QuickNote portion of this chart - SANCHEZ Suarez-Pablito (Jessica Alcazar) Was pt. sent in by a medical professional or institution (SANCHEZ Giordano, HVAC INSTALLER, urgent care, hospital, or shelter...) When possible be specific @ -[No] Did you speak to anyone other than the patient for history (EMS, parent, family, police, friend...)? What history was obtained from this source @ -[No] Did you review nursing and triage notes (agree or disagree)? Why? @ -[I reviewed and agree with nursing and triage notes] Were old charts reviewed (outside hosp., previous admission, EMS record, old EKG, old radiological studies, urgent care reports/EKG's, shelter records)? Report findings @ -[No old charts were reviewed] Differential Diagnosis (chest pain, altered mental status, abdominal pain women, abdominal pain men, vaginal bleeding, weakness, fever, dyspnea, syncope, headache, dizziness, GI bleed, back pain, seizure, CVA, palpatations, mental health, musculoskeletal)? @ -[not applicable] EKG interpreted by me (3pts min.). @ -[As above] X-rays interpreted by me (1pt min.). @ -[None done] CT interpreted by me (1pt min.). @ -[None done] U/S interpreted by me (1pt. min.). @ -[None done] What testing was considered but not performed or refused? (CT, X-rays, U/S, labs)? Why? @ -[None] What meds were considered but not given or refused? Why? @ -[None] Did you discuss the management of the patient with other professionals (aylin mendoza i.e. SANCHEZ Giordano, HVAC INSTALLER, lab, RT, psych nurse, social studies department chair, ccie, teacher, police patrol officer, case fitter)? Give summary @ -[No] Was smoking cessation discussed for >3mins.? @ -[No] Was critical care preformed (if so, how long)? @ -[No] Were there social determinants of health that impacted care today? How? (Homelessness, low income, unemployed, alcoholism, drug addiction, transpor tation, low edu. Level, literacy, decrease access to med. care, long term, rehab)? @ -[No] Was there de-escalation of care discussed even if they declined (Discuss DNR or withdrawal of care, Hospice)? DNR status @ -[No] What co-morbidities impacted this encounter? (DM, HTN, Smoking, COPD, CAD, Cancer, CVA, ARF, Chemo, Hep., AIDS, mental health diagnosis, sleep apnea, morbid obesity)? @ -[None] Was patient admitted / discharged? Hospital course, mention meds given and route, prescriptions, significant lab abnormalities, going to OR and other pertinent info. @ -Discharged. This is a pleasant 61-year-old male past medical history significant for cancer who presents to the emergency department with nausea and vomiting. Patient had a thorough history and physical exam performed on the ED. Physical exam is essentially unremarkable. Heart rate regular rate and rhythm, lungs clear to auscultation bilaterally, abdomen Patient had lab work and imaging performed which was essentially unremarkable. She was given Zofran and 1 L of IV fluids with significant relief. in the ED. patient did not vomit during the course of the ED. I discussed results in detail with the patient verbalized understanding and all questions were addressed. Return precautions were discussed at length. Patient will be discharged home in stable condition with recommended close follow-up with PCP in 1-2 days. He is discussed with ARY Feng who agrees with plan of care Undiagnosed new problem with uncertain prognosis? @ -[No] Drug Therapy requiring intensive monitoring for toxicity (Heparin, Nitro, Insulin, Cardizem)? @ -[No] Were any procedures done? @ -[No] Diagnosis/symptom? @ -Nausea and Vomiting - Hx of Iron Infusion Acute, or Chronic, or Acute on Chronic? @ -Acute Uncomplicated (without systemic symptoms) or Complicated (systemic symptoms)? @ -Uncomplicated Side effects of treatment? @ -[No] Exacerbation, Progression, or Severe Exacerbation? @ -[No] Poses a threat to life or bodily function? How? (Chest pain, [place], [place], pneumonia, PE, COPD, DKA, ARF, appy, cholecystitis, CVA, Diverticulitis, Homicidal, Suicidal, threat to staff... and all critical care pts) @ -Moderate likelihood (Gabrielle Reynoso) - Lab Data Lab Results 10/02/22 10/02/22 10/02/22 Range/Units 16:35 16:35 16:35 WBC 3.7 L (3.8-10.6) k/uL RBC 4.84 (4.30-5.90) m/uL Hgb 13.4 (13.0-17.5) gm/dL Hct 40.6 (39.0-53.0) % MCV 83.9 (80.0-100.0) fL MCH 27.7 (25.0-35.0) pg MCHC 33.0 (31.0-37.0) g/dL RDW 18.3 H (11.5-15.5) % Plt Count 361 (150-450) k/uL MPV 7.1 Neutrophils % 64 % Lymphocytes % 20 % Monocytes % 8 % Eosinophils % 6 % Basophils % 1 % Neutrophils # 2.4 (1.3-7.7) k/uL Lymphocytes # 0.7 L (1.0-4.8) k/uL Monocytes # 0.3 (0-1.0) k/uL Eosinophils # 0.2 (0-0.7) k/uL Basophils # 0.0 (0-0.2) k/uL Hypochromasia Slight Poikilocytosis Slight Anisocytosis Slight Microcytosis Slight Sodium 135 L (137-145) mmol/L Potassium 3.7 (3.5-5.1) mmol/L Chloride 98 (98-107) mmol/L Carbon Dioxide 20 L (22-30) mmol/L Anion Gap 17 mmol/L BUN 12 (9-20) mg/dL Creatinine 0.93 (0.66-1.25) mg/dL Est GFR (CKD-EPI)AfAm >90 (>60 ml/min/1.73 sqM) Est GFR (CKD-EPI)NonAf 88 (>60 ml/min/1.73 sqM) Glucose 55 L (74-99) mg/dL Plasma Lactic Acid Garret 1.3 (0.7-2.0) mmol/L Calcium 9.4 (8.4-10.2) mg/dL Magnesium 2.3 (1.6-2.3) mg/dL Total Bilirubin 1.0 (0.2-1.3) mg/dL AST 32 (17-59) U/L ALT 15 (4-49) U/L Alkaline Phosphatase 83 (38-126) U/L Total Protein 7.0 (6.3-8.2) g/dL Albumin 3.6 (3.5-5.0) g/dL Lipase 58 (23-300) U/L Disposition <Jessica Alcazar - Last Filed: 10/02/22 15:26> Is patient prescribed a controlled substance at d/c from ED?: No Time of Disposition: 20:01 <Gabrielle Reynoso - Last Filed: 10/05/22 23:57> Clinical Impression: Dehydration, Nausea & vomiting Disposition: HOME SELF-CARE Condition: Stable Instructions (If sedation given, give patient instructions): Acute Nausea and Vomiting (ED) Additional Instructions: Please return to the nearest emergency department symptoms worsen or persist Referrals: None,Stated [REFERRING] - 1-2 days
[2022-10-02] MEDS ORDERED: SODIUM CHLORIDE 0.9% 1,000 ML IV ONE (15:49)
[2022-10-02] MEDS ORDERED: ONDANSETRON 4 MG/2 ML VIAL IVP STA (15:50)
[2022-10-02 16:50] LABS: Anisocytosis Slight; Basophils % (A) 1 %; Eosinophils # (A) 0.2 k/uL (0-0.7); Eosinophils % (A) 6 %; HCT 40.6 % (39.0-53.0); HGB 13.4 gm/dL (13.0-17.5); Hypochromasia Slight; Lymphocytes # (A) 0.7 k/uL (1.0-4.8); Lymphocytes % (A) 20 %; MCH 27.7 pg (25.0-35.0); MCV 83.9 fL (80.0-100.0); Mean Platelet Volume 7.1; Microcytosis Slight; Monocytes # (A) 0.3 k/uL (0-1.0); Monocytes % (A) 8 %; Neutrophils # (A) 2.4 k/uL (1.3-7.7); Neutrophils % (A) 64 %; Platelet Count 361 k/uL (150-450); Poikilocytosis Slight; RBC 4.84 m/uL (4.30-5.90); RDW 18.3 % (11.5-15.5); WBC 3.7 k/uL (3.8-10.6)
[2022-10-02 17:04] LABS: Potassium 3.7 mmol/L (3.5-5.1)
[2022-10-02 17:05] LABS: ALT 15 U/L (4-49); AST 32 U/L (17-59); African American GFR (CKD) >90 (>60 ml/min/1.73 sqM); Albumin 3.6 g/dL (3.5-5.0); Alkaline Phosphatase 83 U/L (38-126); Anion Gap 17 mmol/L; Blood Urea Nitrogen 12 mg/dL (9-20); Calcium 9.4 mg/dL (8.4-10.2); Carbon Dioxide 20 mmol/L (22-30); Chloride 98 mmol/L (98-107); Glucose 55 mg/dL (74-99); Lipase 58 U/L (23-300); Magnesium 2.3 mg/dL (1.6-2.3); Non-African American GFR(CKD) 88 (>60 ml/min/1.73 sqM); Sodium 135 mmol/L (137-145)
[2022-10-02] MEDS ORDERED: SODIUM CHLORIDE 0.9% 500 ML 500 ML IV ONE (18:41)
[2022-10-02 18:46] VITALS: BP 95/62; PULSE 80
== END 2022-10-02 20:25 | disposition home or self-care (01) ==
LOC: EC 13:57
DX: E86.0 Dehydration (principal); R11.2 Nausea with vomiting, unspecified; K21.9 Gastro-esophageal reflux disease without esophagitis; I10 Essential (primary) hypertension; F12.90 Cannabis use, unspecified, uncomplicated; Z79.899 Other long term (current) drug therapy
CPT/HCPCS: 36415; 80053; 83605; 83690; 83735; 85025; 99284; 96374; 96361 ×4; J2405

== ENCOUNTER 2022-10-03 10:38 | Observation (INO) | payer OTHER ==
[2022-10-03] MEDS ORDERED: ONDANSETRON 4 MG/2 ML VIAL IVP STA (12:23)
[2022-10-03] MEDS ORDERED: SODIUM CHLORIDE 0.9% 1,000 ML IV STA (12:23)
[2022-10-03] MEDS ORDERED: KETOROLAC 15 MG/ML 1 ML VIAL IVP STA (12:25)
--- NOTE | 2022-10-03 12:32 | ED ---
General Adult HPI - General Chief complaint: Weakness Stated complaint: dehydration Time Seen by Provider: 10/03/22 12:00 Source: patient, RN notes reviewed, old records reviewed Mode of arrival: wheelchair Limitations: no limitations - History of Present Illness Initial comments: This is a 61-year-old male presents to the emergency department with a past medical history significant for renal carcinoma which has metastasized to his lungs. Patient recently got an outpatient infusion of iron and since then he's been unable to eat is very nauseous and he is losing weight. Patient was told to come in by oncology to be admitted. Patient states he so weak it difficult to get around at home even with the assistance of his . Patient denies any fever chills per patient states he does have occasional sharp chest pain when he takes a deep breath. Patient denies any significant cough per patient denies abdominal pain patient denies nausea vomiting diarrhea. - Related Data Home Medications Medication Instructions Recorded Confirmed Omeprazole 20 mg PO DAILY 09/07/21 10/02/22 Hydrocortisone [Cortef] 5 mg PO HS 10/02/22 10/02/22 Hydrocortisone [Cortef] 10 mg PO BID@0900,1500 10/02/22 10/02/22 Levothyroxine Sodium [Synthroid] 100 mcg PO DAILY 10/02/22 10/02/22 Ondansetron Odt [Zofran Odt] 4 mg PO Q8HR PRN 10/02/22 10/02/22 Allergies Allergy/AdvReac Type Severity Reaction Status Date / Time No Known Allergies Allergy Verified 10/03/22 11:58 Review of Systems ROS Statement: Those systems with pertinent positive or pertinent negative responses have been documented in the HPI. ROS Other: All systems not noted in ROS Statement are negative. Past Medical History Past Medical History: Cancer, GERD/Reflux, Hypertension Additional Past Medical History / Comment(s): History of high blood pressure. Newly dx. cancer, / kidney, chronic cough, possible lung ca History of Any Multi-Drug Resistant Organisms: None Reported Past Surgical History: Orthopedic Surgery Additional Past Surgical History / Comment(s): left arm, bx. of R kidney, colonoscopy Past Anesthesia/Blood Transfusion Reactions: No Reported Reaction Past Psychological History: No Psychological Hx Reported Smoking Status: Never smoker Past Alcohol Use History: None Reported Past Drug Use History: Marijuana - Past Family History Mother Family Medical History: Hypertension Father Family Medical History: Cancer Additional Family Medical History / Comment(s): colon General Exam - General Exam Comments Initial Comments: GENERAL: Patient is well-developed and well-nourished. Patient is nontoxic and well- hydrated and is in mild distress. ENT: Neck is soft and supple. No significant lymphadenopathy is noted. Oropharynx is clear. Moist mucous membranes. Neck has full range of motion without eliciting any pain. EYES: The sclera were anicteric and conjunctiva were pink and moist. Extraocular movements were intact and pupils were equal round and reactive to light. Eye lids were unremarkable. PULMONARY: Unlabored respirations. Good breath sounds bilaterally. Patient has crackles in the left base CARDIOVASCULAR: There is a regular rate and rhythm without any murmurs gallops or rubs. ABDOMEN: Soft and nontender with normal bowel sounds. SKIN: Skin is clear with no lesions or rashes and otherwise unremarkable. NEUROLOGIC: Patient is alert and oriented x3. Cranial nerves II through XII are grossly intact. Motor and sensory are also intact. Normal speech, volume and content. Symmetrical smile. MUSCULOSKELETAL: Normal extremities with adequate strength and full range of motion. LYMPHATICS: No significant lymphadenopathy is noted PSYCHIATRIC: Normal psychiatric evaluation. Limitations: no limitations Course Vital Signs 10/03/22 11:49 Temperature 98.7 F Pulse Rate 71 Respiratory 20 Rate Blood Pressure 101/73 O2 Sat by Pulse 92 L Oximetry Medical Decision Making - Medical Decision Making Was pt. sent in by a medical professional or institution (SANCHEZ Giordano, CAD TECHNICIAN, urgent care, hospital, or care home...) When possible be specific @ -Patient's oncologist sent him to the emergency department. Did you speak to anyone other than the patient for history (EMS, parent, family, police, friend...)? What history was obtained from this source @ - gave some of the history Did you review nursing and triage notes (agree or disagree)? Why? @ -I reviewed and agree with nursing and triage notes Were old charts reviewed (outside hosp., previous admission, EMS record, old EKG, old radiological studies, urgent care reports/EKG's, care home records)? Report findings @ -Is also reviewed prior lab work from prior charting on this patient Differential Diagnosis (chest pain, altered mental status, abdominal pain women, abdominal pain men, vaginal bleeding, weakness, fever, dyspnea, syncope, headache, dizziness, GI bleed, back pain, seizure, CVA, palpatations, mental health, musculoskeletal)? @ -Differential Weakness: Hypoglycemia, shock, sepsis, hyponatremia, anemia, infection, IL, ETOH, adverse medicine reaction, overdose, stroke, this is not meant to be an all-inclusive list. EKG interpreted by me (3pts min.). @ -EKG shows sinus rhythm at 87 bpm MS interval 274 QRS is 130 QT interval 377 QTC is 422. Patient's EKG shows some some biphasic T waves in the chest for 5 and 6 as well as inverted T waves inferiorly X-rays interpreted by me (1pt min.). @ -Chest x-ray shows no acute abnormality CT interpreted by me (1pt min.). @ -None done U/S interpreted by me (1pt. min.). @ -None done What testing was considered but not performed or refused? (CT, X-rays, U/S, labs)? Why? @ -None What meds were considered but not given or refused? Why? @ -None Did you discuss the management of the patient with other professionals (professionals i.e. , PA, CAD TECHNICIAN, lab, RT, psych nurse, pediatric social worker, spreader box operator, teacher, aadc plans staff officer, immigration case worker)? Give summary @ -I spoke with Dr. guzman he agreed to admit the patient admitted the patient w rote admitting orders Was smoking cessation discussed for >3mins.? @ -No Was critical care preformed (if so, how long)? @ -No Were there social determinants of health that impacted care today? How? (Homeles sness, low income, unemployed, alcoholism, drug addiction, transportation, low edu. Level, literacy, decrease access to med. care, snf, rehab)? @ -No Was there de-escalation of care discussed even if they declined (Discuss DNR or withdrawal of care, Hospice)? DNR status @ -No What co-morbidities impacted this encounter? (DM, HTN, Smoking, COPD, CAD, Cancer, CVA, ARF, Chemo, Hep., AIDS, mental health diagnosis, sleep apnea, morbid obesity)? @ -None Was patient admitted / discharged? Hospital course, mention meds given and route, prescriptions, significant lab abnormalities, going to OR and other pertinent info. @ -Patient's glucose was 47 and patient was given an amp of D50 and then given some popsicles to eat as well as started on D5 0.45. I spoke with Dr. guzman he agreed to admit the patient admitted the patient I consulted oncology. Undiagnosed new problem with uncertain prognosis? @ -No Drug Therapy requiring intensive monitoring for toxicity (Heparin, Nitro, Insulin, Cardizem)? @ -No Were any procedures done? @ -No Diagnosis/symptom? @ -Generalized weakness Acute, or Chronic, or Acute on Chronic? @ -Acute Uncomplicated (without systemic symptoms) or Complicated (systemic symptoms)? @ -Uncomplicated Side effects of treatment? @ -No Exacerbation, Progression, or Severe Exacerbation? @ -No Poses a threat to life or bodily function? How? (Chest pain, USA, IL, pneumonia, PE, COPD, DKA, ARF, appy, cholecystitis, CVA, Diverticulitis, Homicidal, Suicidal, threat to staff... and all critical care pts) @ -No Diagnosis/symptom? @ -Hypoglycemia Acute, or Chronic, or Acute on Chronic? @ -Acute Uncomplicated (without systemic symptoms) or Complicated (systemic symptoms)? @ -Complicated Side effects of treatment? @ -none Exacerbation, Progression, or Severe Exacerbation] @ -no Poses a threat to life or bodily function? @ -no - Lab Data Result diagrams: 10/03/22 12:39 10/03/22 13:47 Lab Results 10/03/22 10/03/22 10/03/22 Range/Units 12:39 12:39 12:39 WBC 3.6 L (3.8-10.6) k/uL RBC 4.39 (4.30-5.90) m/uL Hgb 12.2 L (13.0-17.5) gm/dL Hct 37.5 L (39.0-53.0) % MCV 85.4 (80.0-100.0) fL MCH 27.8 (25.0-35.0) pg MCHC 32.6 (31.0-37.0) g/dL RDW 18.4 H (11.5-15.5) % Plt Count 355 (150-450) k/uL MPV 6.9 Neutrophils % 61 % Lymphocytes % 20 % Monocytes % 8 % Eosinophils % 9 % Basophils % 1 % Neutrophils # 2.2 (1.3-7.7) k/uL Lymphocytes # 0.7 L (1.0-4.8) k/uL Monocytes # 0.3 (0-1.0) k/uL Eosinophils # 0.3 (0-0.7) k/uL Basophils # 0.0 (0-0.2) k/uL Hypochromasia Moderate Poikilocytosis Slight Anisocytosis Slight Microcytosis Slight PT 11.2 (9.0-12.0) sec INR 1.1 (<1.2) APTT 28.9 (22.0-30.0) sec Sodium 136 L (137-145) mmol/L Potassium 4.1 (3.5-5.1) mmol/L Chloride 102 (98-107) mmol/L Carbon Dioxide 14 L (22-30) mmol/L Anion Gap 20 mmol/L BUN 8 L (9-20) mg/dL Creatinine 0.79 (0.66-1.25) mg/dL Est GFR (CKD-EPI)AfAm >90 (>60 ml/min/1.73 sqM) Est GFR (CKD-EPI)NonAf >90 (>60 ml/min/1.73 sqM) Glucose 46 L* (74-99) mg/dL POC Glucose (mg/dL) (70-110) mg/dL POC Glu Immigration Case Worker ID Plasma Lactic Acid Garret (0.7-2.0) mmol/L Calcium 9.4 (8.4-10.2) mg/dL Magnesium 2.2 (1.6-2.3) mg/dL Total Bilirubin 0.9 (0.2-1.3) mg/dL AST 36 (17-59) U/L ALT 16 (4-49) U/L Alkaline Phosphatase 84 (38-126) U/L Troponin I (0.000-0.034) ng/mL Total Protein 6.8 (6.3-8.2) g/dL Albumin 3.6 (3.5-5.0) g/dL 10/03/22 10/03/22 10/03/22 Range/Units 12:39 12:39 13:19 WBC (3.8-10.6) k/uL RBC (4.30-5.90) m/uL Hgb (13.0-17.5) gm/dL Hct (39.0-53.0) % MCV (80.0-100.0) fL MCH (25.0-35.0) pg MCHC (31.0-37.0) g/dL RDW (11.5-15.5) % Plt Count (150-450) k/uL MPV Neutrophils % % Lymphocytes % % Monocytes % % Eosinophils % % Basophils % % Neutrophils # (1.3-7.7) k/uL Lymphocytes # (1.0-4.8) k/uL Monocytes # (0-1.0) k/uL Eosinophils # (0-0.7) k/uL Basophils # (0-0.2) k/uL Hypochromasia Poikilocytosis Anisocytosis Microcytosis PT (9.0-12.0) sec INR (<1.2) APTT (22.0-30.0) sec Sodium (137-145) mmol/L Potassium (3.5-5.1) mmol/L Chloride (98-107) mmol/L Carbon Dioxide (22-30) mmol/L Anion Gap mmol/L BUN (9-20) mg/dL Creatinine (0.66-1.25) mg/dL Est GFR (CKD-EPI)AfAm (>60 ml/min/1.73 sqM) Est GFR (CKD-EPI)NonAf (>60 ml/min/1.73 sqM) Glucose (74-99) mg/dL POC Glucose (mg/dL) <20 L (70-110) mg/dL POC Glu Immigration Case Worker ID Addi Pari Plasma Lactic Acid Garret 1.2 (0.7-2.0) mmol/L Calcium (8.4-10.2) mg/dL Magnesium (1.6-2.3) mg/dL Total Bilirubin (0.2-1.3) mg/dL AST (17-59) U/L ALT (4-49) U/L Alkaline Phosphatase (38-126) U/L Troponin I <0.012 (0.000-0.034) ng/mL Total Protein (6.3-8.2) g/dL Albumin (3.5-5.0) g/dL 10/03/22 10/03/22 Range/Units 13:37 13:47 WBC (3.8-10.6) k/uL RBC (4.30-5.90) m/uL Hgb (13.0-17.5) gm/dL Hct (39.0-53.0) % MCV (80.0-100.0) fL MCH (25.0-35.0) pg MCHC (31.0-37.0) g/dL RDW (11.5-15.5) % Plt Count (150-450) k/uL MPV Neutrophils % % Lymphocytes % % Monocytes % % Eosinophils % % Basophils % % Neutrophils # (1.3-7.7) k/uL Lymphocytes # (1.0-4.8) k/uL Monocytes # (0-1.0) k/uL Eosinophils # (0-0.7) k/uL Basophils # (0-0.2) k/uL Hypochromasia Poikilocytosis Anisocytosis Microcytosis PT (9.0-12.0) sec INR (<1.2) APTT (22.0-30.0) sec Sodium (137-145) mmol/L Potassium (3.5-5.1) mmol/L Chloride (98-107) mmol/L Carbon Dioxide (22-30) mmol/L Anion Gap mmol/L BUN (9-20) mg/dL Creatinine (0.66-1.25) mg/dL Est GFR (CKD-EPI)AfAm (>60 ml/min/1.73 sqM) Est GFR (CKD-EPI)NonAf (>60 ml/min/1.73 sqM) Glucose 158 H (74-99) mg/dL POC Glucose (mg/dL) 57 L (70-110) mg/dL POC Glu Immigration Case Worker ID Pari Fontana Plasma Lactic Acid Garret (0.7-2.0) mmol/L Calcium (8.4-10.2) mg/dL Magnesium (1.6-2.3) mg/dL Total Bilirubin (0.2-1.3) mg/dL AST (17-59) U/L ALT (4-49) U/L Alkaline Phosphatase (38-126) U/L Troponin I (0.000-0.034) ng/mL Total Protein (6.3-8.2) g/dL Albumin (3.5-5.0) g/dL Disposition Clinical Impression: Hypoglycemia, Generalized weakness, Nausea Disposition: ADMITTED IP TO THIS HOSP Referrals: Erika Mobley MD [Primary Care Provider] - 1-2 days Time of Disposition: 14:19
[2022-10-03 12:51] LABS: Anisocytosis Slight; Basophils % (A) 1 %; Eosinophils # (A) 0.3 k/uL (0-0.7); Eosinophils % (A) 9 %; HCT 37.5 % (39.0-53.0); HGB 12.2 gm/dL (13.0-17.5); Hypochromasia Moderate; Lymphocytes # (A) 0.7 k/uL (1.0-4.8); Lymphocytes % (A) 20 %; MCH 27.8 pg (25.0-35.0); MCHC 32.6 g/dL (31.0-37.0); MCV 85.4 fL (80.0-100.0); Mean Platelet Volume 6.9; Microcytosis Slight; Monocytes # (A) 0.3 k/uL (0-1.0); Monocytes % (A) 8 %; Neutrophils # (A) 2.2 k/uL (1.3-7.7); Neutrophils % (A) 61 %; Platelet Count 355 k/uL (150-450); Poikilocytosis Slight; RBC 4.39 m/uL (4.30-5.90); RDW 18.4 % (11.5-15.5); WBC 3.6 k/uL (3.8-10.6)
[2022-10-03 13:00] LABS: INR 1.1 (<1.2); Partial Thromboplastin Time 28.9 sec (22.0-30.0); Prothrombin Time 11.2 sec (9.0-12.0)
[2022-10-03 13:01] LABS: ALT 16 U/L (4-49); AST 36 U/L (17-59); African American GFR (CKD) >90 (>60 ml/min/1.73 sqM); Albumin 3.6 g/dL (3.5-5.0); Alkaline Phosphatase 84 U/L (38-126); Anion Gap 20 mmol/L; Blood Urea Nitrogen 8 mg/dL (9-20); Calcium 9.4 mg/dL (8.4-10.2); Carbon Dioxide 14 mmol/L (22-30); Chloride 102 mmol/L (98-107); Magnesium 2.2 mg/dL (1.6-2.3); Non-African American GFR(CKD) >90 (>60 ml/min/1.73 sqM); Potassium 4.1 mmol/L (3.5-5.1); Sodium 136 mmol/L (137-145); Total Bilirubin 0.9 mg/dL (0.2-1.3); Total Protein 6.8 g/dL (6.3-8.2)
[2022-10-03 13:05] LABS: Glucose 46 mg/dL (74-99)
--- NOTE | 2022-10-03 13:05 | XR ---
EXAMINATION TYPE: XR chest 2V DATE OF EXAM: 10/03/2022 COMPARISON: 09/22/2021 TECHNIQUE: PA and lateral views submitted. HISTORY: Weakness FINDINGS: There is a pulmonary mass in the right upper lobe measuring 11 mm. Nodular density left lung base cor responds to the CT abnormality pulmonary cavitating nodule measuring 17 mm. Mass along the medial asp ect of the left upper lobe measuring 3.5 cm. A large hiatal hernia noted. Bilateral AC joint arthropathy. Heart size normal. Hyperinflation suggests COPD. Hypertrophic degener ative changes of the spine. There is a left lower lobe consolidation. IMPRESSION: 1. Bilateral pulmonary nodules\masses. Patient has recent CT of the chest demonstrate multiple pulmon ankit nodules. 2. COPD with large hiatal hernia. 3. No acute consolidation.
[2022-10-03 13:20] LABS: Glucose,Whole Blood <20 mg/dL (70-110)
[2022-10-03] MEDS: DEXTROSE 50% SYRINGE 50 ML IVP STA ×2 (13:24→21:42)
[2022-10-03 13:39] LABS: Glucose,Whole Blood 57 mg/dL (70-110)
[2022-10-03] MEDS ORDERED: DEXTROSE 5%-0.45% NACL 1,000 ML IV ONE (13:56)
[2022-10-03] MEDS ORDERED: ONDANSETRON 4 MG/2 ML VIAL IVP PRN ×2 (14:23→19:18)
[2022-10-03] MEDS ORDERED: ACETAMINOPHEN TAB 325 MG TAB PO PRN (19:18)
--- NOTE | 2022-10-03 19:23 | P.HPIM ---
History of Present Illness This pleasant 61 years old male with past medical history of ERD/Reflux, Hypertension. Also he has history of kidney cancer metastatic to the lung as per patient and at bedside. He follows up with [facility]. He is currently taking pills every day for his cancer. Presents because of generalized weakness and feeling sick for the last few days, he cannot eat started since Sunday. He cannot get out of bed. He vomited twice with no blood. Patient denies abdominal pain. Yesterday he had little soft bowel movement but looks normal for him. He says that he has history of kidney stone but denies any urinary symptoms like dysuria or urgency. He denies chest pain dyspnea or coughing. No headache weakness numbness or tingling. Pressures low-normal around 100/65. Chest and vitals looks stable. CBC showing mild leukopenia 3.6 and hemoglobin 12.2. INR is 1.1. BMP is unremarkable. Sodium 136, glucose was lots 46 and less than 20 and in improved with treatment up to 158 today. liver enzymes not elevated Chest x-ray COPD with large hiatal hernia, bilateral pulmonary nodules/masses. Patient had recent CT of the chest demonstrated multiple pulmonary nodules. No acute consolidation EKG showing sinus rhythm with moderate conduction delay. Rate at [address]-T changes. An emergency room patient received normal saline and Toradol, Zofran Review of Systems Review of systems CONSTITUTIONAL: No fever, no malaise, no fatigue. HEENT: No recent visual problems or hearing problems. Denied any sore throat. CARDIOVASCULAR: No orthopnea, PND, no palpitations, no syncope. PULMONARY: No shortness of breath, no cough, no hemoptysis. GASTROINTESTINAL: No diarrhea, no nausea, no vomiting, no abdominal pain. Normoactive bowel sounds. NEUROLOGICAL: No headaches, no weakness, no numbness. HEMATOLOGICAL: Denies any bleeding or petechiae. GENITOURINARY: Denies any burning micturition, frequency, or urgency. MUSCULOSKELETAL/RHEUMATOLOGICAL: Denies any joint pain, swelling, or any muscle pain. ENDOCRINE: Denies any polyuria or polydipsia. Past Medical History Past Medical History: Cancer, GERD/Reflux, Hypertension Additional Past Medical History / Comment(s): History of high blood pressure. Newly dx. cancer, / kidney, chronic cough, possible lung ca History of Any Multi-Drug Resistant Organisms: None Reported Past Surgical History: Orthopedic Surgery Additional Past Surgical History / Comment(s): left arm, bx. of R kidney, colonoscopy Past Anesthesia/Blood Transfusion Reactions: No Reported Reaction Past Psychological History: No Psychological Hx Reported Smoking Status: Never smoker Past Alcohol Use History: None Reported Past Drug Use History: Marijuana - Past Family History Mother Family Medical History: Hypertension Father Family Medical History: Cancer Additional Family Medical History / Comment(s): colon Medications and Allergies Home Medications Medication Instructions Recorded Confirmed Type RX: Omeprazole 20 mg PO DAILY 09/07/21 10/03/22 History Hydrocortisone [Cortef] 5 mg PO HS 10/02/22 10/03/22 History Hydrocortisone [Cortef] 10 mg PO BID@0900,1500 10/02/22 10/03/22 History Levothyroxine Sodium [Synthroid] 100 mcg PO DAILY 10/02/22 10/03/22 History Ondansetron Odt [Zofran Odt] 4 mg PO Q8HR PRN 10/02/22 10/03/22 History Allergies Allergy/AdvReac Type Severity Reaction Status Date / Time No Known Allergies Allergy Verified 10/03/22 18:13 Physical Exam Vitals: Vital Signs Temp Pulse Resp BP Pulse Ox 10/03/22 15:00 80 18 103/66 96 10/03/22 14:48 78 18 109/74 92 L 10/03/22 11:49 98.7 F 71 20 101/73 92 L Intake and Output 10/03/22 10/03/22 10/03/22 06:59 14:59 22:59 Other: Weight 65.771 kg GENERAL: The patient is alert and oriented x3, not in any acute distress. Well developed, well nourished. HEENT: Pupils are round and equally reacting to light. EOMI. No scleral icterus. No conjunctival pallor. Normocephalic, atraumatic. No pharyngeal erythema. No thyromegaly. CARDIOVASCULAR: S1 and S2 present. No murmurs, rubs, or gallops. PULMONARY: Chest is clear to auscultation, no wheezing , no crackles. ABDOMEN: Soft, nontender, nondistended, normoactive bowel sounds. No palpable organomegaly. MUSCULOSKELETAL: No joint swelling or deformity. EXTREMITIES: No cyanosis, clubbing, or pedal edema. NEUROLOGICAL: Gross neurological examination did not reveal any focal deficits. SKIN: No rashes. no petechiae. Results CBC & Chem 7: 10/03/22 12:39 10/03/22 13:47 Labs: Abnormal Lab Results - Last 24 Hours (Table) 10/03/22 10/03/22 10/03/22 Range/Units 12:39 12:39 13:19 WBC 3.6 L (3.8-10.6) k/uL Hgb 12.2 L (13.0-17.5) gm/dL Hct 37.5 L (39.0-53.0) % RDW 18.4 H (11.5-15.5) % Lymphocytes # 0.7 L (1.0-4.8) k/uL Sodium 136 L (137-145) mmol/L Carbon Dioxide 14 L (22-30) mmol/L BUN 8 L (9-20) mg/dL Glucose 46 L* (74-99) mg/dL POC Glucose (mg/dL) <20 L (70-110) mg/dL 10/03/22 10/03/22 Range/Units 13:37 13:47 WBC (3.8-10.6) k/uL Hgb (13.0-17.5) gm/dL Hct (39.0-53.0) % RDW (11.5-15.5) % Lymphocytes # (1.0-4.8) k/uL Sodium (137-145) mmol/L Carbon Dioxide (22-30) mmol/L BUN (9-20) mg/dL Glucose 158 H (74-99) mg/dL POC Glucose (mg/dL) 57 L (70-110) mg/dL Assessment and Plan Assessment: Generalized weakness with malaise and fatigue, associated with Recurrent vomiting. Possible acute gastroenteritis Dehydration with mild hypovolemia secondary to above Hypoglycemia in nondiabetic patient. Recent history of kidney cancer with metastasis to the lungs undergoing therapy. History of adrenal insufficiency on cortisol therapy Plan: IV hydration with D5 normal muscle Pain management Monitor electrolytes and labs oncology consult Resume Cortef Labs and medication were reviewed.. Continue same treatment. Continue with symptomatic treatment. Resume home medication. Monitor labs and vitals. DVT and GI prophylaxis. Further recommendations as per clinical course of the katie ent DVT prophylaxis: Subcutaneous heparin GI Prophylaxis: Pepcid Prognosis is guarded
[2022-10-03 20:52] LABS: Glucose,Whole Blood 66 mg/dL (70-110)
[2022-10-03] MEDS ORDERED: HYDROCORTISONE 10 MG TAB PO SCH (21:00)
[2022-10-03 21:14] LABS: Glucose,Whole Blood 69 mg/dL (70-110)
[2022-10-03 21:36] LABS: Glucose,Whole Blood 64 mg/dL (70-110)
[2022-10-03] MEDS: FAMOTIDINE 20 MG/2 ML VIAL IV SCH (21:36)
[2022-10-03] MEDS: HEPARIN SODIUM,PORCINE/PF 5,000 UNIT/0.5 ML SYRINGE SQ SCH (21:37)
[2022-10-03 22:17] LABS: Glucose,Whole Blood 87 mg/dL (70-110)
[2022-10-04] MEDS ORDERED: HYDROCORTISONE SUCCINATE 100 MG/2 ML VIAL IV ONE (00:15)
[2022-10-04] MEDS: DEXTROSE 5%-0.9% NACL 1,000 ML IV SCH ×2 (00:57→04:13)
[2022-10-04] MEDS ORDERED: LEVOTHYROXINE 100 MCG TAB PO SCH (06:30)
[2022-10-04 07:47] LABS: Glucose,Whole Blood 170 mg/dL (70-110)
[2022-10-04 08:11] VITALS: RESP 16
[2022-10-04 08:46] LABS: Basophils # (A) 0.01 X 10*3/uL (0.00-0.10); Basophils % (A) 0.3 %; Eosinophils # (A) 0.02 X 10*3/uL (0.04-0.35); Eosinophils % (A) 0.6 %; HCT 37.5 % (39.6-50.0); HGB 11.7 d/dL (13.0-17.0); Lymphocytes # (A) 0.15 X 10*3/uL (0.90-5.00); Lymphocytes % (A) 4.8 %; MCH 26.4 pg (27.0-32.0); MCHC 31.2 d/dL (32.0-37.0); MCV 84.7 FL (80.0-97.0); Mean Platelet Volume 8.7 FL (9.5-12.2); Monocytes # (A) 0.05 X 10*3/uL (0.20-1.00); Monocytes % (A) 1.6 %; NRBC Per 100 WBC 0 X 10*3/uL (0.00-0.01); Neutrophils # (A) 2.91 X 10*3/uL (1.80-7.70); Neutrophils % (A) 92.4 %; Platelet Count 311 X 10*3/uL (140-440); RBC 4.43 X 10*6/uL (4.40-5.60); RDW 18.1 % (11.5-14.5); WBC 3.15 X 10*3/uL (4.50-10.00)
[2022-10-04 08:50] LABS: BUN/Creat Ratio 5.57 Ratio (12.00-20.00); Blood Urea Nitrogen 3.9 mg/dL (9.0-27.0); Calcium 9.2 mg/dL (8.7-10.3); Carbon Dioxide 18.8 mmol/L (21.6-31.8); Chloride 106 mmol/L (96-109); Glucose 158 mg/dL (70-110); Potassium 4.5 mmol/L (3.5-5.5); Sodium 136 mmol/L (135-145)
[2022-10-04] MEDS: HEPARIN SODIUM,PORCINE/PF 5,000 UNIT/0.5 ML SYRINGE SQ SCH (10:38)
[2022-10-04] MEDS: HYDROCORTISONE 10 MG TAB PO SCH ×2 (10:38→16:58)
[2022-10-04] MEDS: FAMOTIDINE 20 MG/2 ML VIAL IV SCH (10:38)
[2022-10-04 11:16] LABS: Appearance,Urine Clear (Clear); Bilirubin,Urine Negative (Negative); Blood,Urine Moderate (Negative); Color,Urine Yellow; Glucose,Urine (UA) 3+ (Negative); Leukocyte Esterase,Urine Negative (Negative); Nitrite,Urine Negative (Negative); Protein,Urine Trace (Negative); Specific Gravity,Urine 1.012 (1.001-1.035)
[2022-10-04 11:58] LABS: Ketones,Urine 3+ (Negative)
[2022-10-04 11:59] LABS: RBC,Urine 10 /hpf (0-5); Squamous Epithelial Cell,Urine 1 /hpf (0-4); WBC,Urine 2 /hpf (0-5)
[2022-10-04 12:08] LABS: Glucose,Whole Blood 246 mg/dL (70-110)
[2022-10-04 12:51] VITALS: BP 117/78; PULSE 73; TEMP 98.6
[2022-10-04 14:20] VITALS: BMI 19.6
--- NOTE | 2022-10-04 16:45 | P.CONS ---
History of Present Illness - Reason for Consult Consult date: 10/04/22 Renal cell carcinoma Requesting physician: Adis Jett - Chief Complaint Weakness, nausea, vomiting - History of Present Illness Mr. Sanchez is a 61-year-old male patient of Dr. Lacey French [facility] of anemia of chronic kidney disease, hypertension, hypothyroidism whop is currently admitted for weakness, nausea and vomiting 1 week, this is been progressive, daughter r eports that it started about 10 hours after Feraheme iron infusion. Patient is not currently on any treatment for RCC. Most recent treatment was cabometyx which pt tolerated poorly, he was on the lowest dose. This was discontinued about 2 weeks ago due to disease progression on CT 09/20. He has not yet started the new treatment, fotivda. Patient states that his symptoms improved briefly after discontinuing cabometyx But, they returned. His weakness and loss of appetite is just worsened. More recently these had nausea and vomiting to the point where he is keeping nothing down. He denied any fevers, shortness of breath, abdominal pain or cramping, he had some soft stools, denied any other acute changes, no pain to report. On admit, no fevers, vital signs are been overall stable, mild anemia, renal function WNL, Blood glucose was 46, He received an amp of dextrose 50%, maintained on D5 45 IVF. No new findings on chest x-ray. When seen today patient states he is feeling a little better after receiving some fluids, he is tolerating small amounts of clear liquids at this time. Patient presented to the clinic for findings of a right renal mass and lung lesions around early September 2021. Patient had associated symptoms of progressive fatigue, 25-30 pound weight loss over 3 months, right flank/lower back pain. He was seen at [facility], workup showed COURTNEY, hypercalcemia and microcytic anemia. CT CAP 09/08/21 showed a 0.3 x 10.7 cm superior pole right renal mass along with multiple irregular lung nodules bilaterally. He was treated with bisphosphonate, IV fluids. Biopsy 09/09/21 necrotic neoplasm, insufficient sample for further characterization. 09/22/21 bronchoscopy and biopsy of station 7 lymph node and right upper lobe mass consistent with renal cell carcinoma. Patient was started on immunotherapy ipi/niv, completed 4 cycles, 10/24 through 12/24. He was continued on single agent immunotherapy until 3/23 when he was noted to have disease progression. He was started on, cabometyx, overall poor tolerance, medication was held and dose reduce 2. 09/20 CT showed disease progression. 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 Review of Systems 10 point review of systems is negative except as stated in HPI Past Medical History Past Medical History: Cancer, GERD/Reflux, Hypertension Additional Past Medical History / Comment(s): History of high blood pressure. Newly dx. cancer, / kidney, chronic cough, possible lung ca History of Any Multi-Drug Resistant Organisms: None Reported Past Surgical History: Orthopedic Surgery Additional Past Surgical History / Comment(s): left arm, bx. of R kidney, colonoscopy Past Anesthesia/Blood Transfusion Reactions: No Reported Reaction Past Psychological History: No Psychological Hx Reported Smoking Status: Never smoker Past Alcohol Use History: None Reported Past Drug Use History: Marijuana - Past Family History Mother Family Medical History: Hypertension Father Family Medical History: Cancer Additional Family Medical History / Comment(s): colon Medications and Allergies Home Medications Medication Instructions Recorded Confirmed Type Omeprazole 20 mg PO DAILY 09/07/21 10/03/22 History Hydrocortisone [Cortef] 5 mg PO HS 10/02/22 10/03/22 History Hydrocortisone [Cortef] 10 mg PO BID@0900,1500 10/02/22 10/03/22 History Levothyroxine Sodium [Synthroid] 100 mcg PO DAILY 10/02/22 10/03/22 History Ondansetron Odt [Zofran ODT] 4 mg PO Q8HR PRN 10/02/22 10/03/22 History Allergies Allergy/AdvReac Type Severity Reaction Status Date / Time No Known Allergies Allergy Verified 10/03/22 18:13 Physical Exam Vitals: Vital Signs Temp Pulse Pulse Pulse Resp BP BP 10/04/22 08:22 10/04/22 07:08 97.4 F L 72 16 97/62 10/04/22 01:21 98.7 F 89 17 106/50 10/03/22 18:53 97.5 F L 97 17 10/03/22 18:02 84 18 104/65 10/03/22 17:13 79 18 93/67 10/03/22 15:00 80 18 103/66 10/03/22 14:48 78 18 109/74 10/03/22 11:49 98.7 F 71 20 101/73 BP Pulse Ox 10/04/22 08:22 94 L 10/04/22 07:08 96 10/04/22 01:21 96 10/03/22 18:53 107/68 95 10/03/22 18:02 95 10/03/22 17:13 98 10/03/22 15:00 96 10/03/22 14:48 92 L 10/03/22 11:49 92 L Intake and Output 10/03/22 10/04/22 10/04/22 22:59 06:59 14:59 Other: # Voids 1 Weight 65.771 kg - Constitutional General appearance: average body habitus, cooperative, no acute distress - EENT Eyes: anicteric sclerae, edentulous ENT: hearing grossly normal, normal oropharynx - Neck Neck: no lymphadenopathy - Respiratory Respiratory: bilateral: CTA - Cardiovascular Rhythm: regular Heart sounds: normal: S1, S2 Abnormal Heart Sounds: no systolic murmur, no diastolic murmur, no rub, no S3 Gallop, no S4 Gallop, no click, no other leg Peripheral Edema: bilateral: None - Gastrointestinal General gastrointestinal: no absent bowel sounds, no decreased bowel sounds, no distended, no hepatomegaly, no hyperactive bowel sounds, normal bowel sounds, no organomegaly, no rigid, no scaphoid, soft, no splenomegaly, no tenderness, no umbilical hernia, no ventral hernia - Integumentary Integumentary: normal - Neurologic Neurologic: CNII-XII intact - Musculoskeletal Musculoskeletal: generalized weakness, strength equal bilaterally - Psychiatric Psychiatric: A&O x's 3, appropriate affect, intact judgment & insight Results CBC & Chem 7: 10/04/22 05:53 10/04/22 05:53 Labs: Abnormal Lab Results - Last 24 Hours (Table) 10/03/22 10/03/22 10/03/22 Range/Units 12:39 12:39 13:19 WBC 3.6 L (3.8-10.6) k/uL Hgb 12.2 L (13.0-17.5) gm/dL Hct 37.5 L (39.0-53.0) % MCH (27.0-32.0) pg MCHC (32.0-37.0) d/dL RDW 18.4 H (11.5-15.5) % MPV (9.5-12.2) FL Lymphocytes # 0.7 L (1.0-4.8) k/uL Monocytes # (0.20-1.00) X 10*3/uL Eosinophils # (0.04-0.35) X 10*3/uL Sodium 136 L (137-145) mmol/L Carbon Dioxide 14 L (22-30) mmol/L BUN 8 L (9-20) mg/dL BUN/Creatinine Ratio (12.00-20.00) Ratio Glucose 46 L* (74-99) mg/dL POC Glucose (mg/dL) <20 L (70-110) mg/dL Procalcitonin (0.02-0.09) ng/mL 10/03/22 10/03/22 10/03/22 Range/Units 13:37 13:47 20:50 WBC (3.8-10.6) k/uL Hgb (13.0-17.5) gm/dL Hct (39.0-53.0) % MCH (27.0-32.0) pg MCHC (32.0-37.0) d/dL RDW (11.5-15.5) % MPV (9.5-12.2) FL Lymphocytes # (1.0-4.8) k/uL Monocytes # (0.20-1.00) X 10*3/uL Eosinophils # (0.04-0.35) X 10*3/uL Sodium (137-145) mmol/L Carbon Dioxide (22-30) mmol/L BUN (9-20) mg/dL BUN/Creatinine Ratio (12.00-20.00) Ratio Glucose 158 H (74-99) mg/dL POC Glucose (mg/dL) 57 L 66 L (70-110) mg/dL Procalcitonin (0.02-0.09) ng/mL 10/03/22 10/03/22 10/04/22 Range/Units 21:12 21:32 05:53 WBC (3.8-10.6) k/uL Hgb (13.0-17.5) gm/dL Hct (39.0-53.0) % MCH (27.0-32.0) pg MCHC (32.0-37.0) d/dL RDW (11.5-15.5) % MPV (9.5-12.2) FL Lymphocytes # (1.0-4.8) k/uL Monocytes # (0.20-1.00) X 10*3/uL Eosinophils # (0.04-0.35) X 10*3/uL Sodium (137-145) mmol/L Carbon Dioxide (22-30) mmol/L BUN (9-20) mg/dL BUN/Creatinine Ratio (12.00-20.00) Ratio Glucose (74-99) mg/dL POC Glucose (mg/dL) 69 L 64 L (70-110) mg/dL Procalcitonin 0.11 H (0.02-0.09) ng/mL 10/04/22 10/04/22 10/04/22 Range/Units 05:53 05:53 07:45 WBC 3.15 L (3.8-10.6) k/uL Hgb 11.7 L (13.0-17.5) gm/dL Hct 37.5 L (39.0-53.0) % MCH 26.4 L (27.0-32.0) pg MCHC 31.2 L (32.0-37.0) d/dL RDW 18.1 H (11.5-15.5) % MPV 8.7 L (9.5-12.2) FL Lymphocytes # 0.15 L (1.0-4.8) k/uL Monocytes # 0.05 L (0.20-1.00) X 10*3/uL Eosinophils # 0.02 L (0.04-0.35) X 10*3/uL Sodium (137-145) mmol/L Carbon Dioxide 18.8 L (22-30) mmol/L BUN 3.9 L (9-20) mg/dL BUN/Creatinine Ratio 5.57 L (12.00-20.00) Ratio Glucose 158 H (74-99) mg/dL POC Glucose (mg/dL) 170 H (70-110) mg/dL Procalcitonin (0.02-0.09) ng/mL Chest x-ray: report reviewed Assessment and Plan (1) Hypoglycemia Current Visit: Yes Status: Resolved Priority: High Code(s): E16.2 - HYPOGLYCEMIA, UNSPECIFIED SNOMED Code(s): 188755903 (2) Generalized weakness Current Visit: Yes Status: Acute Code(s): R53.1 - WEAKNESS SNOMED Code(s): 16065563 (3) Renal cell adenocarcinoma Current Visit: Yes Status: Acute Priority: High Code(s): C64.9 - MALIGNANT NEOPLASM OF UNSP KIDNEY, EXCEPT RENAL PELVIS SNOMED Code(s): 839877970 (4) Nausea Current Visit: Yes Status: Acute Code(s): R11.0 - NAUSEA SNOMED Code(s): 980324329 Plan: Hypoglycemia -Blood sugar 46 on admission. This was corrected in the emergency department. Patient has been receiving IV fluids with dextrose -Patient denies any history of diabetes. -Defer to IM Renal cell carcinoma -Recent disease progression -Patient due to start new medication regimen for today. He was in the office for an education on fotivda but, was not feeling well and looked pretty bad so, he was sent to Hospital. -Patient is NOT to start fotivda until after he's been reevaluated in the office. This was communicated to the patient, his daughter who was on the phone while receiving the patient, to his they contacted the office, and it is been documented in the discharge plan. Weakness, nausea, vomiting -Patient had been experiencing the above symptoms to some degree. These however, progressed and worsened after receiving parenteral iron Feraheme. This is been documented in the office as an adverse reaction, different formulation of iron will be used for future supplementation. Doctor attests: I performed a history and physical examination of this patient, developed impression and plan of care. Discussed with dictator. I agree with dictators note, documented as a scribe.
--- NOTE | 2022-10-06 13:41 | CDI ---
Documentation Clarification Form Date: 10/06/2022 From: Elliot Weiss Admit Date: 10/04/2022 07:15:00 AM Patient Name: Paul Bailey Visit Number: [id number] Discharge Date: 10/04/2022 05:42:00 PM ATTENTION: The Clinical Documentation Specialists (CDI) and [facility] Coding Staff appreciate your assistance in clarifying documentation. Please respond to the clarification below the line at the bottom and electronically sign. The CDI & [facility] Coding staff will review the response and follow-up if needed. Please note: Queries are made part of the Legal Health Record. If you have any questions, please contact the author of this message via ITS. Dr. Arias E Sheet The Registered Dietitian assessment on 10/04 indicates this patient meets criteria for severe malnutrition in the setting of chronic illness. Based on this information and the findings below, is there an additional diagnosis that is clinically appropriate for this patient? History/Risk Factors: Pt. feeling generalized weakness and sick the last few days per H&P on 10/03 PMH: GERD, HTN, Renal cancer with mets to the lung. Clinical Indicators: Per RD consult: (34# wt loss, decreased appetite). At visit, pt sitting in bed. He reports his appetite has been "so-so". He has lost 22.8kg (25.7%) X the last year 2 his cancer causing a reduced appetite and ultimately not eating enough to keep up with his increased needs. His does the cooking and grocery shopping. He typically eats two meals daily, but there are days where he skips and will only have 1 meal. 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 His oncologist recommended protein drinks in-between his meals. RD discussed this, but choosing both a high calorie and high protein supplement for muscle and weight gain needs. RD also discussed the need for routine, and meal prepping so to help avoid skipping meals. Current BMI: 19.7 RD Consult Assessment: Physical exam does suggest severe muscle wasting in his pectoralis, deltoid and trapezius region, moderate fat pad wasting in his triceps. Treatment: RD consult, He would strongly benefit from outpatient nutrition services or a visit w/ Aniceto dunlapitian during his next visit. Pt declined ONS during his visit, stating he would "focus on food". Is there an additional diagnosis that is clinically appropriate for this patient? [ ] Mild Protein-Calorie Malnutrition [ ] Moderate Protein-Calorie Malnutrition [ ] Severe Protein-Calorie Malnutrition [ ] No additional diagnosis/Not clinically significant [ ] Other condition, please specify [ ] Unable to Determine Reference: Using the ASPEN Guidelines, Undernutrition (Malnutrition) is characterized by at least two of the following six findings. The severity can be determined based on the criteria listed below. Malnutrition Characteristics for Moderate and Severe Malnutrition Type of Malnutrition Acute Illness or Injury Chronic Illness Degree of Malnutrition Non-severe (moderate) Malnutrition Severe Malnutrition Non-severe (moderate) Malnutrition Severe Malnutrition (Template Last Revised: September 2022) Moderate Protein-Calorie Malnutrition MTDD
--- NOTE | 2022-10-13 10:04 | P.DS ---
Providers Date of admission: 10/04/22 07:15 Attending physician: Hugo Carney MD Consults: 10/03/22 14:19 Consult Physician Urgent Consulting Provider: Lacey French Consult Reason/Comments: Renal cell carcinoma Do you want consulting provider notified?: Yes Primary care physician: Erika Mobley MD Hospital Course: diagnoses: Generalized weakness with malaise and fatigue, associated with Recurrent vomiting. Possible acute gastroenteritis vz others. improved Dehydration with mild hypovolemia secondary to above Hypoglycemia in nondiabetic patient. improved and pt tolerates diet well Recent history of kidney cancer with metastasis to the lungs undergoing therapy. History of adrenal insufficiency on cortisol therapy hospital course: This pleasant 61 years old male with past medical history of ERD/Reflux, Hypertension. Also he has history of kidney cancer metastatic to the lung as per patient and at bedside. He [facility] up with [facility]. He is currently taking pills every day for his cancer. Presents because of generalized weakness and feeling sick for the last few days, he cannot eat started since Sunday. He cannot get out of bed. He vomited twice with no blood. Patient denies abdominal pain. Yesterday he had little soft bowel movement but looks normal for him. pt had poor appetite on admission, this was improved with treatment , he tolerates diet well , he ate 75-100 % of his meals , his sugar has been normal (87,170,246), pt strength improved as well, denies any other new sysmptoms or signs. pt says he can go home Problems and management plan were discussed with the patient and he verbalized understanding and acceptance Patient was found stable and can be discharged home in guarded prognosis however he needs follow-up as an outpatient. Patient was instructed to follow up with PCP Dr. Mobley within one week and patient agrees Patient was instructed to follow up with his oncologist Dr. French in 1-2 weeks and he agrees to call and make appointment Physical exam Gen: patient is a AAOx3, no distress CVS: S1-S2, RRR, no murmur Lungs: B/L CTA, no wheezing Abdomen: soft, no distention, no tenderness, positive bowel sounds Extremity: no leg edema or induration Time spent more than 35 minutes Plan - Discharge Summary Discharge Rx Participant: No New Discharge Prescriptions: Continue Omeprazole 20 mg PO DAILY Ondansetron Odt [Zofran ODT] 4 mg PO Q8HR PRN PRN Reason: Nausea And Vomiting Levothyroxine Sodium [Synthroid] 100 mcg PO DAILY Hydrocortisone [Cortef] 10 mg PO BID@0900,1500 Hydrocortisone [Cortef] 5 mg PO HS No Action Prochlorperazine [Compazine] 10 mg PO QID PRN PRN Reason: Nausea Discharge Medication List Omeprazole 20 mg PO DAILY 09/07/21 [History] Hydrocortisone [Cortef] 5 mg PO HS 10/02/22 [History] Hydrocortisone [Cortef] 10 mg PO BID@0900,1500 10/02/22 [History] Levothyroxine Sodium [Synthroid] 100 mcg PO DAILY 10/02/22 [History] Ondansetron Odt [Zofran ODT] 4 mg PO Q8HR PRN 10/02/22 [History] Prochlorperazine [Compazine] 10 mg PO QID PRN 10/11/22 [History] Follow up Appointment(s)/Referral(s): Lacey French MD [STAFF PHYSICIAN] - 10/30/22 4:15 pm Erika Mobley MD [Primary Care Provider] - 10/11/22 2:00 pm Patient Instructions/Handouts: Hypoglycemia in a Person with Diabetes (DC), Acute Nausea and Vomiting (DC) Activity/Diet/Wound Care/Special Instructions: heart healthy diet , chopped diet activity is restricted till you see your doctor we recommend to repeat urinary analysis DO NOT start medication (fotivda) from the Oncologist. Wait to be reassessed and cleared to start. Discharge Disposition: HOME SELF-CARE
== END 2022-10-04 17:42 | disposition home or self-care (01) ==
LOC: EC 10:38 → 5NMEDONC 14:23 → OBSVTOIN 10-04 07:15 → INTOOBSV 10-04 07:15 → UNDODISIN 10-04 17:42
PROVIDERS: ADMIT Internal Medicine; ATTEND Internal Medicine
DX: R53.1 Weakness (principal); C78.02 Secondary malignant neoplasm of left lung; C78.01 Secondary malignant neoplasm of right lung; E27.40 Unspecified adrenocortical insufficiency; E44.0 Moderate protein-calorie malnutrition; Z68.1 Body mass index [BMI] 19.9 or less, adult; R53.83 Other fatigue; R53.81 Other malaise; R11.2 Nausea with vomiting, unspecified; E16.2 Hypoglycemia, unspecified; E86.0 Dehydration; E86.1 Hypovolemia; E03.9 Hypothyroidism, unspecified; I12.9 Hypertensive chronic kidney disease with stage 1 through stage 4 chronic kidney disease, or unspecified chronic kidney disease; N18.9 Chronic kidney disease, unspecified; D63.1 Anemia in chronic kidney disease; K21.9 Gastro-esophageal reflux disease without esophagitis; R05.3 Chronic cough; Z85.528 Personal history of other malignant neoplasm of kidney; Z79.890 Hormone replacement therapy; Z79.899 Other long term (current) drug therapy
CPT/HCPCS: 96376; 96361 ×3; 96372 ×2; 96375 ×2; 96374; 99285; 36415; 94760; 93005; 97162; 97165; 80053; 80048; 83605; 83735 ×2; 82947; 84484; 85025 ×2; 85610; 85730; 81001; 84145; 71046; G0378 ×3; J1720; J2405; J1885; J1644 ×2

== ENCOUNTER 2022-10-11 09:56 | Observation (INO) | payer OTHER ==
[2022-10-11] MEDS ORDERED: ONDANSETRON 4 MG/2 ML VIAL IVP STA (11:10)
[2022-10-11] MEDS ORDERED: SODIUM CHLORIDE 0.9% 1,000 ML IV STA ×2 (11:10)
[2022-10-11] MEDS ORDERED: PANTOPRAZOLE 40 MG/10 ML VIAL IVP STA (11:12)
[2022-10-11 11:58] LABS: Anisocytosis Slight; HGB 10.6 gm/dL (13.0-17.5); Hypochromasia Slight; MCH 27.7 pg (25.0-35.0); MCV 86.5 fL (80.0-100.0); Mean Platelet Volume 7.5; Platelet Count 326 k/uL (150-450); RBC 3.82 m/uL (4.30-5.90); RDW 16.6 % (11.5-15.5); WBC 3.6 k/uL (3.8-10.6)
[2022-10-11 12:05] LABS: INR 1.1 (<1.2); Partial Thromboplastin Time 26.7 sec (22.0-30.0); Prothrombin Time 11.1 sec (9.0-12.0)
[2022-10-11 12:10] LABS: ALT 15 U/L (4-49); AST 23 U/L (17-59); African American GFR (CKD) >90 (>60 ml/min/1.73 sqM); Alkaline Phosphatase 76 U/L (38-126); Anion Gap 10 mmol/L; Blood Urea Nitrogen 8 mg/dL (9-20); Calcium 10.8 mg/dL (8.4-10.2); Carbon Dioxide 25 mmol/L (22-30); Chloride 97 mmol/L (98-107); Glucose 78 mg/dL (74-99); Lipase 79 U/L (23-300); Non-African American GFR(CKD) 89 (>60 ml/min/1.73 sqM); Potassium 4.4 mmol/L (3.5-5.1); Sodium 132 mmol/L (137-145); Total Bilirubin 0.9 mg/dL (0.2-1.3); Total Protein 6.2 g/dL (6.3-8.2)
--- NOTE | 2022-10-11 12:22 | XR ---
EXAMINATION TYPE: XR chest 2V DATE OF EXAM: 10/11/2022 12:18 PM COMPARISON: Chest radiographs from 10/03/2022, CT chest abdomen pelvis 09/20/2022 TECHNIQUE: XR chest 2V Frontal and lateral views of the chest. CLINICAL INDICATION:Male, 61 years old with history of Weakness; FINDINGS: Lungs/Pleura: There is no evidence of pleural effusion, focal consolidation, or pneumothorax. Simila r appearance of bilateral pulmonary nodules and masses. Hyperinflation. Chronic senescent parenchyma changes. Pulmonary vascularity: Unremarkable. Heart/mediastinum: Cardiomediastinal silhouette is unremarkable. Musculoskeletal: No acute osseous pathology. Mild degenerative changes of the thoracic spine. Other: Large lateral hernia redemonstrated. IMPRESSION: 1. Overall stable examination of bilateral pulmonary nodules/masses. 2. COPD changes with large hiatal hernia redemonstrated.
--- NOTE | 2022-10-11 12:34 | ED ---
General Adult HPI - General Chief complaint: Weakness Stated complaint: Abnormal Sugar Level, No Rajat Time Seen by Provider: 10/11/22 11:10 Source: patient, RN notes reviewed, old records reviewed Mode of arrival: ambulatory Limitations: no limitations - History of Present Illness Initial comments: Patient is a 61-year-old male with past medical history remarkable for renal cancer who presents emergency Department for failure to thrive. Has been at [facility] and not able to eat. Persistent nausea, vomiting, dehydration. Patient was recently admitted to the hospital for similar complaints. Currently not on chemo or radiation. Has history of hypertension. No other acute complaints at this time. Presents for further evaluation at this time. He does endorse nonspecific abdominal discomfort which he currently does not have. Is expressing nausea with nonbilious, emesis. Denies diarrhea or constipation. Endorses mild nonproductive cough. Denies fevers. Endorses one-month of cloudy urine. Presents for further evaluation. Family and patient are concerned that he may require admission again as he has not been eating since his discharge. - Related Data Home Medications Medication Instructions Recorded Confirmed Omeprazole 20 mg PO DAILY 09/07/21 10/11/22 Hydrocortisone [Cortef] 5 mg PO HS 10/02/22 10/11/22 Hydrocortisone [Cortef] 10 mg PO BID@0900,1500 10/02/22 10/11/22 Levothyroxine Sodium [Synthroid] 100 mcg PO DAILY 10/02/22 10/11/22 Ondansetron Odt [Zofran ODT] 4 mg PO Q8HR PRN 10/02/22 10/11/22 Prochlorperazine [Compazine] 10 mg PO QID PRN 10/11/22 10/11/22 Allergies Allergy/AdvReac Type Severity Reaction Status Date / Time No Known Allergies Allergy Verified 10/11/22 11:54 Review of Systems ROS Statement: Those systems with pertinent positive or pertinent negative responses have been documented in the HPI. Review of Systems: CONST: Denies fever EYES: Denies blurry vision ENT: Denies nasal congestion C/V: Denies Chest pain RESP: Denies shortness of breath GI: Denies abdominal pain : Denies dysuria SKIN: Denies rash. MSK: Denies joint pain. NEURO: Endorses denies weakness ROS Other: All systems not noted in ROS Statement are negative. Past Medical History Past Medical History: Cancer, GERD/Reflux, Hypertension Additional Past Medical History / Comment(s): History of high blood pressure. Newly dx. cancer, / kidney, chronic cough, possible lung ca History of Any Multi-Drug Resistant Organisms: None Reported Past Surgical History: Orthopedic Surgery Additional Past Surgical History / Comment(s): left arm, bx. of R kidney, colonoscopy Past Anesthesia/Blood Transfusion Reactions: No Reported Reaction Past Psychological History: No Psychological Hx Reported Smoking Status: Never smoker Past Alcohol Use History: Occasional Past Drug Use History: Marijuana - Past Family History Mother Family Medical History: Hypertension Father Family Medical History: Cancer Additional Family Medical History / Comment(s): colon General Exam - General Exam Comments Initial Comments: General: Appears in no acute distress. HEAD: Normal with no signs of head trauma. EYES: PERRLA, EOMI, conjunctiva normal, no discharge. ENT: Hearing grossly intact, normal oropharynx. RESPIRATORY: Clear breath sounds bilaterally. No wheezes, rales, or rhonchi. C/V: Regular rate and rhythm. S1 and S2 auscultated, no edema, peripheral pulses 2+ and intact throughout ABD: Abd is soft, nontender, nondistended. no focal tenderness over the abdomen. EXT: Normal range of motion, no obvious deformity SKIN: No rashes or lesions observed on exposed skin. NEURO: Alert and oriented 4. Limitations: no limitations Course Vital Signs 10/11/22 10/11/22 10/11/22 10:01 11:10 13:35 Temperature 98.8 F Pulse Rate 101 H 101 H 90 Respiratory 18 20 20 Rate Blood Pressure 108/65 116/69 109/62 O2 Sat by Pulse 96 99 96 Oximetry Medical Decision Making - Medical Decision Making Was pt. sent in by a medical professional or institution (, PA, BANKING ASSISTANT, urgent care, hospital, or usp...) When possible be specific @ -No Did you speak to anyone other than the patient for history (EMS, parent, family, police, friend...)? What history was obtained from this source @ -No Did you review nursing and triage notes (agree or disagree)? Why? @ -I reviewed and agree with nursing and triage notes Were old charts reviewed (outside hosp., previous admission, EMS record, old EKG, old radiological studies, urgent care reports/EKG's, usp records)? Report findings @ -Reviewed old charts from previous visits October 2022 in September 2022. Differential Diagnosis (chest pain, altered mental status, abdominal pain women, abdominal pain men, vaginal bleeding, weakness, fever, dyspnea, syncope, headache, dizziness, GI bleed, back pain, seizure, CVA, palpatations, mental health, musculoskeletal)? @ -Differential Weakness: Hypoglycemia, shock, sepsis, hyponatremia, anemia, infection, CA, ETOH, adverse medicine reaction, overdose, stroke, this is not meant to be an all-inclusive list. EKG interpreted by me (3pts min.). @ -As above X-rays interpreted by me (1pt min.). @ -Patient's bilateral pulmonary nodules. With no other obvious acute findings. CT interpreted by me (1pt min.). @ -None done U/S interpreted by me (1pt. min.). @ -None done What testing was considered but not performed or refused? (CT, X-rays, U/S, labs)? Why? @ -None What meds were considered but not given or refused? Why? @ -None Did you discuss the management of the patient with other professionals (professionals i.e. , PA, BANKING ASSISTANT, lab, RT, psych nurse, social media analyst, hunting guide, teacher, founder chairman and chief creative officer, wrapper caser)? Give summary @ -Discussed with the accepting admitting physician, Dr. Turner. Patient admitted to [facility] as a bounce back his patient was admitted to the last week. Was smoking cessation discussed for >3mins.? @ -No Was critical care preformed (if so, how long)? @ -No Were there social determinants of health that impacted care today? How? (Homelessness, low income, unemployed, alcoholism, drug addiction, transport ation, low edu. Level, literacy, decrease access to med. care, fci, rehab)? @ -No Was there de-escalation of care discussed even if they declined (Discuss DNR or withdrawal of care, Hospice)? DNR status @ -No What co-morbidities impacted this encounter? (DM, HTN, Smoking, COPD, CAD, Cancer, CVA, ARF, Chemo, Hep., AIDS, mental health diagnosis, sleep apnea, morbid obesity)? @ -None Was patient admitted / discharged? Hospital course, mention meds given and route, prescriptions, significant lab abnormalities, going to OR and other pertinent info. @ -Based on patient's presentation and physical exam, I'm concerned for failure to thrive as he has not been able to tolerate oral intake. Symptoms seem to be chronically last month or so. Patient will be administered IV fluids, IV Protonix and Zofran. He'll likely be admitted to the hospital. He was in agreement this plan. Vital signs within acceptable limits. EKG shows no signs of acute ischemia. Patient has chronic anemia. Troponin undetectable. Chest x-ray unremarkable with no evidence of acute infectious process. There are pulmonary nodules present. Urine is still pending at this time. I reviewed the results of the patient as well as his . He will be admitted for IV fluid hydration for failure to thrive and dehydration. They were in agreement this plan. Oncology will be consulted. I spoke with [facility], who admitted the patient last week to accept the patient again. Dr. Turner accepted the patient. Undiagnosed new problem with uncertain prognosis? @ -No Drug Therapy requiring intensive monitoring for toxicity (Heparin, Nitro, Insulin, Cardizem)? @ -No Were any procedures done? @ -No Diagnosis/symptom? @ -Failure to thrive, dehydration, weakness Acute, or Chronic, or Acute on Chronic? @ -Acute Uncomplicated (without systemic symptoms) or Complicated (systemic symptoms)? @ -Complicated Side effects of treatment? @ -none Exacerbation, Progression, or Severe Exacerbation] @ -no Poses a threat to life or bodily function? @ -Yes - Lab Data Result diagrams: 10/11/22 11:34 10/11/22 11:34 Lab Results 10/11/22 10/11/22 10/11/22 Range/Units 11:34 11:34 11:34 WBC 3.6 L (3.8-10.6) k/uL RBC 3.82 L (4.30-5.90) m/uL Hgb 10.6 L (13.0-17.5) gm/dL Hct 33.0 L (39.0-53.0) % MCV 86.5 (80.0-100.0) fL MCH 27.7 (25.0-35.0) pg MCHC 32.0 (31.0-37.0) g/dL RDW 16.6 H (11.5-15.5) % Plt Count 326 (150-450) k/uL MPV 7.5 Neutrophils % (Manual) 67 % Lymphocytes % (Manual) 12 % Monocytes % (Manual) 16 % Eosinophils % (Manual) 5 % Neutrophils # (Manual) 2.41 (1.3-7.7) k/uL Lymphocytes # (Manual) 0.43 L (1.0-4.8) k/uL Monocytes # (Manual) 0.58 (0-1.0) k/uL Eosinophils # (Manual) 0.18 (0-0.7) k/uL Nucleated RBCs 0 (0-0) /100 WBC Manual Slide Review Performed Hypochromasia Slight Anisocytosis Slight PT 11.1 (9.0-12.0) sec INR 1.1 (<1.2) APTT 26.7 (22.0-30.0) sec Sodium 132 L (137-145) mmol/L Potassium 4.4 (3.5-5.1) mmol/L Chloride 97 L (98-107) mmol/L Carbon Dioxide 25 (22-30) mmol/L Anion Gap 10 mmol/L BUN 8 L (9-20) mg/dL Creatinine 0.92 (0.66-1.25) mg/dL Est GFR (CKD-EPI)AfAm >90 (>60 ml/min/1.73 sqM) Est GFR (CKD-EPI)NonAf 89 (>60 ml/min/1.73 sqM) Glucose 78 (74-99) mg/dL Calcium 10.8 H (8.4-10.2) mg/dL Magnesium 2.0 (1.6-2.3) mg/dL Total Bilirubin 0.9 (0.2-1.3) mg/dL AST 23 (17-59) U/L ALT 15 (4-49) U/L Alkaline Phosphatase 76 (38-126) U/L Troponin I (0.000-0.034) ng/mL Total Protein 6.2 L (6.3-8.2) g/dL Albumin 3.0 L (3.5-5.0) g/dL Lipase 79 (23-300) U/L Influenza Type A (PCR) (Not Detectd) Influenza Type B (PCR) (Not Detectd) RSV (PCR) (Not Detectd) SARS-CoV-2 (PCR) (Not Detectd) 10/11/22 10/11/22 Range/Units 11:34 11:34 WBC (3.8-10.6) k/uL RBC (4.30-5.90) m/uL Hgb (13.0-17.5) gm/dL Hct (39.0-53.0) % MCV (80.0-100.0) fL MCH (25.0-35.0) pg MCHC (31.0-37.0) g/dL RDW (11.5-15.5) % Plt Count (150-450) k/uL MPV Neutrophils % (Manual) % Lymphocytes % (Manual) % Monocytes % (Manual) % Eosinophils % (Manual) % Neutrophils # (Manual) (1.3-7.7) k/uL Lymphocytes # (Manual) (1.0-4.8) k/uL Monocytes # (Manual) (0-1.0) k/uL Eosinophils # (Manual) (0-0.7) k/uL Nucleated RBCs (0-0) /100 WBC Manual Slide Review Hypochromasia Anisocytosis PT (9.0-12.0) sec INR (<1.2) APTT (22.0-30.0) sec Sodium (137-145) mmol/L Potassium (3.5-5.1) mmol/L Chloride (98-107) mmol/L Carbon Dioxide (22-30) mmol/L Anion Gap mmol/L BUN (9-20) mg/dL Creatinine (0.66-1.25) mg/dL Est GFR (CKD-EPI)AfAm (>60 ml/min/1.73 sqM) Est GFR (CKD-EPI)NonAf (>60 ml/min/1.73 sqM) Glucose (74-99) mg/dL Calcium (8.4-10.2) mg/dL Magnesium (1.6-2.3) mg/dL Total Bilirubin (0.2-1.3) mg/dL AST (17-59) U/L ALT (4-49) U/L Alkaline Phosphatase (38-126) U/L Troponin I <0.012 (0.000-0.034) ng/mL Total Protein (6.3-8.2) g/dL Albumin (3.5-5.0) g/dL Lipase (23-300) U/L Influenza Type A (PCR) Not Detected (Not Detectd) Influenza Type B (PCR) Not Detected (Not Detectd) RSV (PCR) Not Detected (Not Detectd) SARS-CoV-2 (PCR) Not Detected (Not Detectd) - EKG Data -: EKG Interpreted by Me EKG Comments: 12-lead Electrocardiogram Interpretation Note EKG was reviewed and interpreted by myself. 12-lead ECG performed at [facility] is interpreted by me as revealing normal sinus rhythm at a rate of 99 beats per minute. [place] is normal. [place] interval is 179 ms, QRS duration is 104 ms, QTc is 374 ms.. There were no ST or T wave abnormalities to suggest myocardial ischemia or injury. R wave progression across the precordium was satisfactory. By my interpretation this EKG is non-diagnostic for acute ischemia. Disposition Clinical Impression: Dehydration, Failure to thrive, Weakness Disposition: ADMITTED IP TO THIS HOSP Condition: Stable Time of Disposition: 12:59
[2022-10-11 12:58] LABS: Eosinophils # (M) 0.18 k/uL (0-0.7); Lymphocytes # (M) 0.43 k/uL (1.0-4.8); Monocytes # (M) 0.58 k/uL (0-1.0); Neutrophils # (M) 2.41 k/uL (1.3-7.7); Neutrophils % (M) 67 %; Nucleated Red Blood Cells 0 /100 WBC (0-0); Total Cells Counted 100
[2022-10-11] MEDS ORDERED: ONDANSETRON 4 MG/2 ML VIAL IVP PRN (13:17)
[2022-10-11] MEDS ORDERED: ACETAMINOPHEN TAB 325 MG TAB PO PRN (13:17)
[2022-10-11] MEDS ORDERED: NALOXONE 0.4 MG/ML 1 ML VIAL IV PRN (13:17)
[2022-10-11] MEDS: SODIUM CHLORIDE 0.9% 1,000 ML IV SCH ×2 (14:26→22:07)
--- NOTE | 2022-10-11 14:30 | P.HPIM ---
History of Present Illness H&P Date: 10/11/22 History of present illness; patient is a 61-year-old gentleman with past medical history significant for GERD/Reflux, Hypertension, renal cell cancer presented to the ER because of poor appetite and failure to thrive. Patient was recently discharged one week ago after being admitted for similar complaints. Patient at the bedside, according to her patient has been having poor appetite. Patient states that patient does not take Compazine as he is supposed to. Patient states that he only experiences nausea when he does not eat and has only vomited once yesterday. Patient states that patient has been noncompliant with eating and medications. Denies abdominal pain. Denies any fever or chills. Complaining of lightheadedness and dizziness. Because of loss of appetite and failure to thrive, patient came to the ER Initial lab work done in the ER showed WBC 3.6, hemoglobin 10.6, platelet count 326, sodium 132, potassium 4.4, BUN 8, creatinine 0.92, calcium 10.8 EKG done in the ER showed ventricle rate 99, QRS 112, no ST segment elevation, no T-wave inversion Chest x-ray done in the ER showed COPD changes with large hiatal hernia Patient admitted to medicine service REVIEW OF SYSTEMS: CONSTITUTIONAL: As mentioned above HEENT: No recent visual problems or hearing problems. Denied any sore throat. CARDIOVASCULAR: No chest pain, orthopnea, PND, no palpitations, no syncope. PULMONARY: No shortness of breath, no cough, no hemoptysis. GASTROINTESTINAL: As mentioned above NEUROLOGICAL: No headaches, no weakness, no numbness. HEMATOLOGICAL: Denies any bleeding or petechiae. GENITOURINARY: Denies any burning micturition, frequency, or urgency. MUSCULOSKELETAL/RHEUMATOLOGICAL: Denies any joint pain, swelling, or any muscle pain. ENDOCRINE: Denies any polyuria or polydipsia. The rest of the 14-point review of systems is negative. PHYSICAL EXAMINATION: GENERAL: The patient is alert and oriented x3, not in any acute distress. Chronically ill looking HEENT: Pupils are round and equally reacting to light. EOMI. No scleral icterus. No conjunctival pallor. Normocephalic, atraumatic. No pharyngeal erythema. No thyromegaly. CARDIOVASCULAR: S1 and S2 present. No murmurs, rubs, or gallops. PULMONARY: Chest is clear to auscultation, no wheezing or crackles. ABDOMEN: Soft, nontender, nondistended, normoactive bowel sounds. No palpable organomegaly. MUSCULOSKELETAL: No joint swelling or deformity. EXTREMITIES: No cyanosis, clubbing, or pedal edema. NEUROLOGICAL: Gross neurological examination did not reveal any focal deficits. SKIN: No rashes. Assessment and plan Failure to thrive Nausea Dehydration with mild hypovolemia history of kidney cancer with metastasis to the lungs undergoing therapy. History of adrenal insufficiency on cortisol therapy Hypothyroidism Monitor vital signs Monitor CBC Monitor CMP Continue IV fluids Continue antiemetics Continue oral Protonix Resume home meds Consult hematology oncology Labs and medication were reviewed.. Continue same treatment. Continue with symptomatic treatment. Resume home medication. Monitor labs and vitals. DVT and GI prophylaxis. Further recommendations as per clinical course of the patient Dictation was produced using [employer] dictation software. please excuse any grammatical, word or spelling errors. Past Medical History Past Medical History: Cancer, GERD/Reflux, Hypertension Additional Past Medical History / Comment(s): History of high blood pressure. Newly dx. cancer, / kidney, chronic cough, possible lung ca History of Any Multi-Drug Resistant Organisms: None Reported Past Surgical History: Orthopedic Surgery Additional Past Surgical History / Comment(s): left arm, bx. of R kidney, colonoscopy Past Anesthesia/Blood Transfusion Reactions: No Reported Reaction Past Psychological History: No Psychological Hx Reported Smoking Status: Never smoker Past Alcohol Use History: Occasional Past Drug Use History: Marijuana - Past Family History Mother Family Medical History: Hypertension Father Family Medical History: Cancer Additional Family Medical History / Comment(s): colon Medications and Allergies Home Medications Medication Instructions Recorded Confirmed Type Omeprazole 20 mg PO DAILY 09/07/21 10/11/22 History Hydrocortisone [Cortef] 5 mg PO HS 10/02/22 10/11/22 History Hydrocortisone [Cortef] 10 mg PO BID@0900,1500 10/02/22 10/11/22 History Levothyroxine Sodium [Synthroid] 100 mcg PO DAILY 10/02/22 10/11/22 History Ondansetron Odt [Zofran ODT] 4 mg PO Q8HR PRN 10/02/22 10/11/22 History Prochlorperazine [Compazine] 10 mg PO QID PRN 10/11/22 10/11/22 History Allergies Allergy/AdvReac Type Severity Reaction Status Date / Time No Known Allergies Allergy Verified 10/11/22 11:54 Physical Exam Vitals: Vital Signs Temp Pulse Resp BP Pulse Ox 10/11/22 13:35 90 20 109/62 96 10/11/22 11:10 101 H 20 116/69 99 10/11/22 10:01 98.8 F 101 H 18 108/65 96 Intake and Output 10/10/22 10/11/22 10/11/22 22:59 06:59 14:59 Other: Weight 63.503 kg Results CBC & Chem 7: 10/11/22 11:34 10/11/22 11:34 Labs: Abnormal Lab Results - Last 24 Hours (Table) 10/11/22 10/11/22 Range/Units 11:34 11:34 WBC 3.6 L (3.8-10.6) k/uL RBC 3.82 L (4.30-5.90) m/uL Hgb 10.6 L (13.0-17.5) gm/dL Hct 33.0 L (39.0-53.0) % RDW 16.6 H (11.5-15.5) % Lymphocytes # (Manual) 0.43 L (1.0-4.8) k/uL Sodium 132 L (137-145) mmol/L Chloride 97 L (98-107) mmol/L BUN 8 L (9-20) mg/dL Calcium 10.8 H (8.4-10.2) mg/dL Total Protein 6.2 L (6.3-8.2) g/dL Albumin 3.0 L (3.5-5.0) g/dL
[2022-10-11 15:58] LABS: Appearance,Urine Cloudy (Clear); Bilirubin,Urine Negative (Negative); Blood,Urine Large (Negative); Color,Urine Light Red; Glucose,Urine (UA) Negative (Negative); Ketones,Urine 1+ (Negative); Leukocyte Esterase,Urine Negative (Negative); Mucus,Urine Many /hpf; Nitrite,Urine Negative (Negative); Protein,Urine 1+ (Negative); RBC,Urine >182 /hpf (0-5); Specific Gravity,Urine 1.018 (1.001-1.035); WBC,Urine 6 /hpf (0-5)
[2022-10-11] MEDS: HYDROCORTISONE 10 MG TAB PO SCH ×2 (18:18→21:46)
[2022-10-12] MEDS: LEVOTHYROXINE 100 MCG TAB PO SCH (06:18)
[2022-10-12] MEDS: PANTOPRAZOLE 40 MG TABLET PO SCH (08:14)
[2022-10-12] MEDS: HYDROCORTISONE 10 MG TAB PO SCH ×3 (08:14→20:46)
[2022-10-12] MEDS: SODIUM CHLORIDE 0.9% 1,000 ML IV SCH (08:15)
[2022-10-12 10:56] LABS: Basophils # (A) 0.02 X 10*3/uL (0.00-0.10); Basophils % (A) 0.6 %; Eosinophils # (A) 0.18 X 10*3/uL (0.04-0.35); Eosinophils % (A) 5.8 %; HGB 9.2 d/dL (13.0-17.0); Lymphocytes # (A) 0.64 X 10*3/uL (0.90-5.00); Lymphocytes % (A) 20.6 %; MCH 27.1 pg (27.0-32.0); MCHC 30.7 d/dL (32.0-37.0); MCV 88.5 FL (80.0-97.0); Monocytes % (A) 22.6 %; NRBC Per 100 WBC 0 X 10*3/uL (0.00-0.01); Neutrophils # (A) 1.53 X 10*3/uL (1.80-7.70); Neutrophils % (A) 49.4 %; Platelet Count 296 X 10*3/uL (140-440); RBC 3.39 X 10*6/uL (4.40-5.60); RDW 16.4 % (11.5-14.5)
[2022-10-12 11:25] LABS: BUN/Creat Ratio 9.67 Ratio (12.00-20.00); Blood Urea Nitrogen 8.7 mg/dL (9.0-27.0); Calcium 9.9 mg/dL (8.7-10.3); Carbon Dioxide 19.7 mmol/L (21.6-31.8); Chloride 100 mmol/L (96-109); Glucose 41 mg/dL (70-110); Potassium 4.3 mmol/L (3.5-5.5); Sodium 134 mmol/L (135-145)
[2022-10-12] MEDS ORDERED: PROCHLORPERAZINE 10 MG TAB PO PRN (11:28)
[2022-10-12 11:45] LABS: Glucose,Whole Blood 49 mg/dL (70-110)
[2022-10-12] MEDS: DEXTROSE 5%-0.9% NACL 1,000 ML IV SCH (11:45)
[2022-10-12] MEDS ORDERED: SODIUM CHLORIDE 0.9% 250 ML with PAMIDRONATE 30 MG IV ONE ×2 (12:00)
[2022-10-12 12:06] LABS: Glucose,Whole Blood 45 mg/dL (70-110)
[2022-10-12 13:34] LABS: Glucose,Whole Blood 76 mg/dL (70-110)
--- NOTE | 2022-10-12 14:04 | P.PN ---
Subjective Progress Note Date: 10/12/22 patient is a 61-year-old gentleman with past medical history significant for G ERD/Reflux, Hypertension, renal cell cancer presented to the ER because of poor appetite and failure to thrive. Patient was recently discharged one week ago after being admitted for similar complaints. Patient at the bedside, according to her patient has been having poor appetite. Patient states that patient does not take Compazine as he is supposed to. Patient states that he only experiences nausea when he does not eat and has only vomited once yesterday. Patient states that patient has been noncompliant with eating and medications. Denies abdominal pain. Denies any fever or chills. Complaining of lightheadedness and dizziness. Because of loss of appetite and failure to thrive, patient came to the ER Initial lab work done in the ER showed WBC 3.6, hemoglobin 10.6, platelet count 326, sodium 132, potassium 4.4, BUN 8, creatinine 0.92, calcium 10.8 EKG done in the ER showed ventricle rate 99, QRS 112, no ST segment elevation, no T-wave inversion Chest x-ray done in the ER showed COPD changes with large hiatal hernia Patient admitted to medicine service 10/12. Patient seen and examined. Continues to have poor appetite. Denies any nausea or vomiting at this time. Patient blood sugars have been low, switch fluids to D5W REVIEW OF SYSTEMS: CONSTITUTIONAL: No fever, no malaise,. CARDIOVASCULAR: No chest pain, no palpitations, no syncope. PULMONARY: No shortness of breath, no cough, GASTROINTESTINAL: No diarrhea, no nausea, no vomiting, no abdominal pain. NEUROLOGICAL: No headaches, no weakness, PHYSICAL EXAMINATION: GENERAL: The patient is alert and oriented x3, not in any acute distress. Well developed, well nourished. HEENT: Pupils are round and equally reacting to light. EOMI. No scleral icterus. No conjunctival pallor. Normocephalic, atraumatic. No pharyngeal erythema. No thyromegaly. CARDIOVASCULAR: S1 and S2 present. No murmurs, rubs, or gallops. PULMONARY: Chest is clear to auscultation, no wheezing or crackles. ABDOMEN: Soft, nontender, nondistended, normoactive bowel sounds. No palpable organomegaly. MUSCULOSKELETAL: No joint swelling or deformity. EXTREMITIES: No cyanosis, clubbing, or pedal edema. NEUROLOGICAL: Gross neurological examination did not reveal any focal deficits. SKIN: No rashes. Assessment and plan Failure to thrive Nausea Dehydration with mild hypovolemia history of kidney cancer with metastasis to the lungs undergoing therapy. History of adrenal insufficiency on cortisol therapy Hypothyroidism Monitor vital signs Monitor CBC Monitor CMP Continue IV fluids Continue antiemetics Continue oral Protonix Follow-up on hematology oncology recommendations Labs and medication were reviewed.. Continue same treatment. Continue with symptomatic treatment. Resume home medication. Monitor labs and vitals. DVT and GI prophylaxis. Further recommendations as per clinical course of the patient Dictation was produced using [employer] dictation software. please excuse any grammatical, word or spelling errors. Objective - Vital Signs Vital signs: Vital Signs Temp 98.0 F 10/12/22 12:04 Pulse 79 10/12/22 12:04 Resp 14 10/12/22 12:04 BP 96/56 10/12/22 12:04 Pulse Ox 98 10/12/22 12:04 FiO2 Intake & Output 10/11/22 10/12/22 10/12/22 18:59 06:59 18:59 Intake Total 800 Balance 800 Weight 63.503 kg 63.503 kg Intake: Intake, IV Titration 800 Amount Sodium Chloride 0.9% 1, 800 000 ml @ 100 mls/hr IV . Q10H [facility] Rx#:[id number] Other: Voiding Method Urinal Urinal - Labs CBC & Chem 7: 10/12/22 06:11 10/12/22 06:11 Labs: Abnormal Lab Results - Last 24 Hours (Table) 10/11/22 10/12/22 10/12/22 Range/Units 11:10 06:11 06:11 WBC 3.10 L (4.50-10.00) X 10*3/uL RBC 3.39 L (4.40-5.60) X 10*6/uL Hgb 9.2 L (13.0-17.0) d/dL Hct 30.0 L (39.6-50.0) % MCHC 30.7 L (32.0-37.0) d/dL RDW 16.4 H (11.5-14.5) % MPV 9.0 L (9.5-12.2) [place] Neutrophils # 1.53 L (1.80-7.70) X 10*3/uL Lymphocytes # 0.64 L (0.90-5.00) X 10*3/uL Sodium 134 L (135-145) mmol/L Carbon Dioxide 19.7 L (21.6-31.8) mmol/L Anion Gap 14.30 H (4.00-12.00) mmol/L BUN 8.7 L (9.0-27.0) mg/dL BUN/Creatinine Ratio 9.67 L (12.00-20.00) Ratio Glucose 41 H* (70-110) mg/dL POC Glucose (mg/dL) (70-110) mg/dL Urine Protein 1+ H (Negative) Urine Ketones 1+ H (Negative) Urine Blood Large H (Negative) Urine RBC >182 H (0-5) /hpf Urine WBC 6 H (0-5) /hpf Urine Mucus Many H (None) /hpf 10/12/22 10/12/22 Range/Units 11:44 12:05 WBC (4.50-10.00) X 10*3/uL RBC (4.40-5.60) X 10*6/uL Hgb (13.0-17.0) d/dL Hct (39.6-50.0) % MCHC (32.0-37.0) d/dL RDW (11.5-14.5) % MPV (9.5-12.2) FL Neutrophils # (1.80-7.70) X 10*3/uL Lymphocytes # (0.90-5.00) X 10*3/uL Sodium (135-145) mmol/L Carbon Dioxide (21.6-31.8) mmol/L Anion Gap (4.00-12.00) mmol/L BUN (9.0-27.0) mg/dL BUN/Creatinine Ratio (12.00-20.00) Ratio Glucose (70-110) mg/dL POC Glucose (mg/dL) 49 L 45 L (70-110) mg/dL Urine Protein (Negative) Urine Ketones (Negative) Urine Blood (Negative) Urine RBC (0-5) /hpf Urine WBC (0-5) /hpf Urine Mucus (None) /hpf
[2022-10-12 15:25] VITALS: BMI 19.0
[2022-10-12] MEDS: MEGESTROL 400 MG/10 ML CUP PO SCH (16:01)
[2022-10-12 17:08] LABS: Glucose,Whole Blood 84 mg/dL (70-110)
--- NOTE | 2022-10-12 17:08 | P.CONS ---
History of Present Illness - Reason for Consult Consult date: 10/12/22 renal cell carcinoma Requesting physician: Juan Miguel Lobato - Chief Complaint FTT - History of Present Illness Mr. Sanchez is a 61-year-old male patient of Dr. Lacey French with a PMH of anemia of chronic kidney disease, hypertension, hypothyroidism who is currently admitted for weakness and nausea and vomiting. This has been progressive. Patient was admitted last week for the same. Patient reports that it started about 10 hours after Feraheme iron infusion a couple weeks ago. Patient is not currently on any treatment for RCC. Most recent treatment was cabometyx which pt tolerated poorly, he was on the lowest dose. This was discontinued about 3 weeks ago due to disease progression on CT on 09/20. He has not yet started the new treatment, fotivda. Patient states that his symptoms improved briefly after discontinuing cabometyxm but returned. His weakness and loss of appetite has just worsened and states he is eating very little at home. Patiwnt states this is due to decreased appetite and intermittent nausea. Pt does take compazine at home with improvement in symptoms. He denies any fevers, shortness of breath, abdominal pain or cramping, denied any other acute changes, no pain to report. On admit, no fevers, vital signs have been overall stable, mild anemia, renal function WNL. Corrected calcium 11.6. LFTs and bilirubin WNL. UA showed no acute infection, hematuria present. RSV, flu, and COVID negative. CXR revealed COPD changes and stable exam of bilateral pulmonary nodules/masses. When seen today patient reports he is feeling improved. He is tolerating small amounts of clear liquids at this time. Oncology history: Patient presented to the clinic for findings of a right renal mass and lung lesions around early September 2021. Patient had associated symptoms of progressive fatigue, 25-30 pound weight loss over 3 months, right flank/lower back pain. He was seen at [facility], workup showed COURTNEY, hypercalcemia and microcytic anemia. CT CAP 09/08/21 showed a 0.3 x 10.7 cm superior pole right renal mass along with multiple irregular lung nodules bilaterally. He was treated with bisphosphonate, IV fluids. Biopsy 09/09/21 necrotic neoplasm, insufficient sample for further characterization. 09/22/21 bronchoscopy and biopsy of station 7 lymph node and right upper lobe mass consistent with renal cell carcinoma. Patient was started on immunotherapy ipi/niv, completed 4 cycles, 10/24 through 12/24. He was continued on single agent immunotherapy until 05/25 when he was noted to have disease progression. He was started on, cabometyx, overall poor tolerance, medication was held and dose reduce 2. 09/20 CT showed disease progression. He has been ordered fotivda but has not been able to start new regimen due to persisting n/v and weakness and poor oral intake. Review of Systems 10 point ROS is negative except as stated in the HPI Past Medical History Past Medical History: Cancer, GERD/Reflux, Hypertension Additional Past Medical History / Comment(s): History of high blood pressure. Newly dx. cancer-kidney, chronic cough, possible lung ca History of Any Multi-Drug Resistant Organisms: None Reported Past Surgical History: Orthopedic Surgery Additional Past Surgical History / Comment(s): left arm, bx. of R kidney, colonoscopy Past Anesthesia/Blood Transfusion Reactions: No Reported Reaction Past Psychological History: No Psychological Hx Reported Smoking Status: Never smoker Past Alcohol Use History: Occasional Past Drug Use History: Marijuana - Past Family History Mother Family Medical History: Hypertension Father Family Medical History: Cancer Additional Family Medical History / Comment(s): colon Medications and Allergies Home Medications Medication Instructions Recorded Confirmed Type Omeprazole 20 mg PO DAILY 09/07/21 10/11/22 History Hydrocortisone [Cortef] 5 mg PO HS 10/02/22 10/11/22 History Hydrocortisone [Cortef] 10 mg PO BID@0900,1500 10/02/22 10/11/22 History Levothyroxine Sodium [Synthroid] 100 mcg PO DAILY 10/02/22 10/11/22 History Ondansetron Odt [Zofran ODT] 4 mg PO Q8HR PRN 10/02/22 10/11/22 History Prochlorperazine [Compazine] 10 mg PO QID PRN 10/11/22 10/11/22 History Allergies Allergy/AdvReac Type Severity Reaction Status Date / Time No Known Allergies Allergy Verified 10/11/22 11:54 Physical Exam Vitals: Vital Signs Temp Pulse Pulse Resp BP BP Pulse Ox 10/12/22 07:40 98.5 F 84 16 99/61 97 10/12/22 01:33 99.2 F 85 16 96/58 94 L 10/11/22 21:47 99.4 F 90 16 100/62 94 L 10/11/22 19:41 92 18 112/61 95 10/11/22 16:32 92 18 96/47 96 10/11/22 13:35 90 20 109/62 96 10/11/22 11:10 101 H 20 116/69 99 10/11/22 10:01 98.8 F 101 H 18 108/65 96 Intake and Output 10/11/22 10/12/22 10/12/22 22:59 06:59 14:59 Intake Total 800 Balance 800 Intake: Intake, IV Titration 800 Amount Sodium Chloride 0.9% 1, 800 000 ml @ 100 mls/hr IV . Q10H [facility] Rx#:[id number] Other: Voiding Method Urinal Urinal Weight 63.503 kg - Constitutional General appearance: no acute distress - EENT Eyes: anicteric sclerae, EOMI ENT: hearing grossly normal - Respiratory Respiratory: bilateral: CTA - Cardiovascular Rhythm: regular Heart sounds: normal: S1, S2 Abnormal Heart Sounds: no systolic murmur, no diastolic murmur, no rub, no S3 Gallop, no S4 Gallop, no click, no other - Gastrointestinal General gastrointestinal: soft, no tenderness - Integumentary Integumentary: no cyanotic, no jaundiced - Neurologic grossly intact - Musculoskeletal Musculoskeletal: strength equal bilaterally - Psychiatric Psychiatric: A&O x's 3, appropriate affect, intact judgment & insight Results CBC & Chem 7: 10/12/22 06:11 10/12/22 06:11 Labs: Abnormal Lab Results - Last 24 Hours (Table) 10/11/22 10/11/22 10/11/22 Range/Units 11:10 11:34 11:34 WBC 3.6 L (3.8-10.6) k/uL RBC 3.82 L (4.30-5.90) m/uL Hgb 10.6 L (13.0-17.5) gm/dL Hct 33.0 L (39.0-53.0) % RDW 16.6 H (11.5-15.5) % Lymphocytes # (Manual) 0.43 L (1.0-4.8) k/uL Sodium 132 L (137-145) mmol/L Chloride 97 L (98-107) mmol/L BUN 8 L (9-20) mg/dL Calcium 10.8 H (8.4-10.2) mg/dL Total Protein 6.2 L (6.3-8.2) g/dL Albumin 3.0 L (3.5-5.0) g/dL Urine Protein 1+ H (Negative) Urine Ketones 1+ H (Negative) Urine Blood Large H (Negative) Urine RBC >182 H (0-5) /hpf Urine WBC 6 H (0-5) /hpf Urine Mucus Many H (None) /hpf Chest x-ray: report reviewed Assessment and Plan (1) Dehydration Current Visit: Yes Status: Acute Priority: High Code(s): E86.0 - DEHYDRATION SNOMED Code(s): 38099718 (2) Weakness Current Visit: Yes Status: Acute Priority: High Code(s): R53.1 - WEAKNESS SNOMED Code(s): 02647098 (3) Hypercalcemia Current Visit: Yes Status: Acute Priority: High Code(s): E83.52 - HYPERCALCEMIA SNOMED Code(s): 83479674 (4) Renal cell adenocarcinoma Current Visit: Yes Status: Acute Priority: High Code(s): C64.9 - MALIGNANT NEOPLASM OF UNSP KIDNEY, EXCEPT RENAL PELVIS SNOMED Code(s): 853345298 Plan: Renal cell carcinoma -Recent disease progression -Patient due to start new medication regimen, fotivda, but has yet to start due to persisting n/v and weakness -Patient is NOT to start fotivda until after he's been reevaluated in the office. This was communicated to the patient/family Weakness, nausea, vomiting -Patient had been experiencing the above symptoms to some degree. These however, progressed and worsened after receiving parenteral iron Feraheme. This is been documented in the office as an adverse reaction, different formulation of iron will be used for future supplementation. However, due to persisting symptoms s/p iron infusion over 3 weeks ago, this is likely related to metastatic disease/disease progression -Compazine added to anti-emetic regimen as this worked better than zofran in the past. Megace added for appetite stimulant. Patient has been prescribed in the past but has not taken per . Discussed with patient the importance of adhering to medication regimen and advancing his diet/nutrition as tolerated because treatment will have to be on hold until his performance status improves. He verbalized understanding. Caitlin script sent to his pharmacy on file for discharge -Ghost Writer consulted Hypercalcemia: -Corrected calcium 11.6. This may be contributing to symptoms. Will continue IV hydration and give dose of pamidronate -Will recheck calcium in the am Doctor attests: I performed a history and physical examination of this patient, developed impression and plan of care. Discussed with dictator. I agree with dictators note, documented as a scribe.
[2022-10-12] MEDS ORDERED: droNABinol 2.5 MG CAP PO SCH (17:30)
[2022-10-12 19:43] VITALS: RESP 16
[2022-10-12 20:23] LABS: Glucose,Whole Blood 163 mg/dL (70-110)
[2022-10-13] MEDS: DEXTROSE 5%-0.9% NACL 1,000 ML IV SCH ×2 (01:15→11:07)
[2022-10-13 01:58] LABS: Glucose,Whole Blood 185 mg/dL (70-110)
[2022-10-13 01:59] VITALS: TEMP 97.7
[2022-10-13] MEDS: LEVOTHYROXINE 100 MCG TAB PO SCH (06:03)
[2022-10-13 06:21] LABS: Anisocytosis Slight; Basophils % (A) 0 %; Eosinophils # (A) 0.1 k/uL (0-0.7); Eosinophils % (A) 2 %; HCT 29.9 % (39.0-53.0); HGB 9.7 gm/dL (13.0-17.5); Hypochromasia Slight; Lymphocytes # (A) 0.3 k/uL (1.0-4.8); Lymphocytes % (A) 12 %; MCH 27.8 pg (25.0-35.0); MCHC 32.6 g/dL (31.0-37.0); MCV 85.4 fL (80.0-100.0); Mean Platelet Volume 7.5; Monocytes # (A) 0.3 k/uL (0-1.0); Monocytes % (A) 11 %; Neutrophils # (A) 1.9 k/uL (1.3-7.7); Neutrophils % (A) 74 %; Platelet Count 295 k/uL (150-450); Poikilocytosis Slight; RDW 16.4 % (11.5-15.5); WBC 2.6 k/uL (3.8-10.6)
[2022-10-13 06:29] LABS: ALT 13 U/L (4-49); AST 19 U/L (17-59); African American GFR (CKD) >90 (>60 ml/min/1.73 sqM); Albumin 2.6 g/dL (3.5-5.0); Alkaline Phosphatase 69 U/L (38-126); Anion Gap 9 mmol/L; Blood Urea Nitrogen 6 mg/dL (9-20); Calcium 9.7 mg/dL (8.4-10.2); Carbon Dioxide 23 mmol/L (22-30); Chloride 104 mmol/L (98-107); Globulin 2.7 g/dL; Glucose 204 mg/dL (74-99); Non-African American GFR(CKD) >90 (>60 ml/min/1.73 sqM); Potassium 4.1 mmol/L (3.5-5.1); Sodium 136 mmol/L (137-145); Total Bilirubin 0.4 mg/dL (0.2-1.3); Total Protein 5.3 g/dL (6.3-8.2)
[2022-10-13 07:42] LABS: Glucose,Whole Blood 158 mg/dL (70-110)
[2022-10-13] MEDS: HYDROCORTISONE 10 MG TAB PO SCH (08:09)
[2022-10-13] MEDS: MEGESTROL 400 MG/10 ML CUP PO SCH (08:09)
[2022-10-13] MEDS: PANTOPRAZOLE 40 MG TABLET PO SCH (08:09)
[2022-10-13 11:58] LABS: Glucose,Whole Blood 212 mg/dL (70-110)
[2022-10-13 13:21] VITALS: BP 100/62; PULSE 72
--- NOTE | 2022-10-13 14:32 | P.DS ---
Providers Date of admission: 10/11/22 13:17 Expected date of discharge: 10/13/22 Attending physician: Ever Turner MD Consults: 10/11/22 13:17 Consult Physician Routine Consulting Provider: Lacey French Consult Reason/Comments: renal cancer Do you want consulting provider notified?: Yes Primary care physician: Erika Mobley MD Hospital Course: Discharge diagnoses; Failure to thrive Nausea Dehydration with mild hypovolemia history of kidney cancer with metastasis to the lungs undergoing therapy. History of adrenal insufficiency on cortisol therapy Hypothyroidism Hospital course; patient is a 61-year-old gentleman with past medical history significant for G ERD/Reflux, Hypertension, renal cell cancer presented to the ER because of poor appetite and failure to thrive. Patient was recently discharged one week ago after being admitted for similar complaints. Patient at the bedside, according to her patient has been having poor appetite. Patient states that patient does not take Compazine as he is supposed to. Patient states that he only experiences nausea when he does not eat and has only vomited once yesterday. Patient states that patient has been noncompliant with eating and medications. Denies abdominal pain. Denies any fever or chills. Complaining of lightheadedness and dizziness. Because of loss of appetite and failure to thrive, patient came to the ER Initial lab work done in the ER showed WBC 3.6, hemoglobin 10.6, platelet count 326, sodium 132, potassium 4.4, BUN 8, creatinine 0.92, calcium 10.8 EKG done in the ER showed ventricle rate 99, QRS 112, no ST segment elevation, no T-wave inversion Chest x-ray done in the ER showed COPD changes with large hiatal hernia Patient admitted to medicine service 10/12. Patient seen and examined. Continues to have poor appetite. Denies any nausea or vomiting at this time. Patient blood sugars have been low, switch fluids to D5W 10/13. Patient seen and examined. Tolerating diet. Hematology oncology cleared the patient for discharge. Outpatient follow with PCP PHYSICAL EXAMINATION: GENERAL: The patient is alert and oriented x3, not in any acute distress. Well developed, well nourished. HEENT: Pupils are round and equally reacting to light. EOMI. No scleral icterus. No conjunctival pallor. Normocephalic, atraumatic. No pharyngeal erythema. No thyromegaly. CARDIOVASCULAR: S1 and S2 present. No murmurs, rubs, or gallops. PULMONARY: Chest is clear to auscultation, no wheezing or crackles. ABDOMEN: Soft, nontender, nondistended, normoactive bowel sounds. No palpable organomegaly. MUSCULOSKELETAL: No joint swelling or deformity. EXTREMITIES: No cyanosis, clubbing, or pedal edema. NEUROLOGICAL: Gross neurological examination did not reveal any focal deficits. SKIN: No rashes. Dictation was produced using [employer] dictation software. please excuse any grammatical, word or spelling errors. Patient Condition at Discharge: Fair Plan - Discharge Summary New Discharge Prescriptions: New Megestrol [Megace] 400 mg PO DAILY #14 ml Continue Omeprazole 20 mg PO DAILY Ondansetron Odt [Zofran ODT] 4 mg PO Q8HR PRN PRN Reason: Nausea And Vomiting Levothyroxine Sodium [Synthroid] 100 mcg PO DAILY Hydrocortisone [Cortef] 10 mg PO BID@0900,1500 Hydrocortisone [Cortef] 5 mg PO HS Prochlorperazine [Compazine] 10 mg PO QID PRN PRN Reason: Nausea Discharge Medication List Omeprazole 20 mg PO DAILY 09/07/21 [History] Hydrocortisone [Cortef] 5 mg PO HS 10/02/22 [History] Hydrocortisone [Cortef] 10 mg PO BID@0900,1500 10/02/22 [History] Levothyroxine Sodium [Synthroid] 100 mcg PO DAILY 10/02/22 [History] Ondansetron Odt [Zofran ODT] 4 mg PO Q8HR PRN 10/02/22 [History] Prochlorperazine [Compazine] 10 mg PO QID PRN 10/11/22 [History] Megestrol [Megace] 400 mg PO DAILY #14 ml 10/13/22 [Rx] Follow up Appointment(s)/Referral(s): Erika Mobley MD [Primary Care Provider] - 1-2 days Ubaldo Bradshaw [STAFF PHYSICIAN] - 1 Week
--- NOTE | 2022-10-13 15:19 | P.PN ---
Subjective Progress Note Date: 10/13/22 Principal diagnosis: renal cell carcinoma at today's visit patient is resting comfortably in bed. Patient reports significant improvement since admission. He reports he is tolerating oral intake better. He was able to eat his breakfast. Denies nausea and vomiting and abdominal pain. Objective - Vital Signs Vital signs: Vital Signs Temp 97.7 F 10/13/22 11:56 Pulse 72 10/13/22 11:56 Resp 16 10/13/22 11:56 BP 100/62 10/13/22 11:56 Pulse Ox 100 10/13/22 11:56 FiO2 Intake & Output 10/12/22 10/13/22 10/13/22 18:59 06:59 18:59 Intake Total 1260 Balance 1260 Weight 63.503 kg 63.503 kg Intake: Intake, IV Titration 1200 Amount Dextrose 5%-0.9% NaCl 1, 1200 000 ml @ 100 mls/hr IV . Q10H [facility] Rx#:[id number] Oral 60 Other: Voiding Method Urinal Toilet Toilet Urinal Urinal # Voids 1 2 - Constitutional General appearance: Present: no acute distress, thin - EENT Eyes: Present: anicteric sclerae, EOMI ENT: Present: hearing grossly normal - Respiratory Details: breathing even and unlabored - Cardiovascular Details: skin warm and dry - Integumentary Integumentary: Absent: cyanotic, jaundiced - Neurologic Neurologic Comment(s): grossly intact - Musculoskeletal Musculoskeletal: Present: strength equal bilaterally - Psychiatric Psychiatric: Present: A&O x's 3, appropriate affect, intact judgment & insight - Labs CBC & Chem 7: 10/13/22 06:02 10/13/22 06:02 Labs: Abnormal Lab Results - Last 24 Hours (Table) 10/12/22 10/13/22 10/13/22 Range/Units 20:22 01:57 06:02 WBC (3.8-10.6) k/uL RBC (4.30-5.90) m/uL Hgb (13.0-17.5) gm/dL Hct (39.0-53.0) % RDW (11.5-15.5) % Lymphocytes # (1.0-4.8) k/uL Sodium 136 L (137-145) mmol/L BUN 6 L (9-20) mg/dL Creatinine 0.64 L (0.66-1.25) mg/dL Glucose 204 H (74-99) mg/dL POC Glucose (mg/dL) 163 H 185 H (70-110) mg/dL Total Protein 5.3 L (6.3-8.2) g/dL Albumin 2.6 L (3.5-5.0) g/dL 10/13/22 10/13/22 10/13/22 Range/Units 06:02 07:40 11:57 WBC 2.6 L (3.8-10.6) k/uL RBC 3.50 L (4.30-5.90) m/uL Hgb 9.7 L (13.0-17.5) gm/dL Hct 29.9 L (39.0-53.0) % RDW 16.4 H (11.5-15.5) % Lymphocytes # 0.3 L (1.0-4.8) k/uL Sodium (137-145) mmol/L BUN (9-20) mg/dL Creatinine (0.66-1.25) mg/dL Glucose (74-99) mg/dL POC Glucose (mg/dL) 158 H 212 H (70-110) mg/dL Total Protein (6.3-8.2) g/dL Albumin (3.5-5.0) g/dL Assessment and Plan (1) Dehydration Current Visit: Yes Status: Acute Priority: High Code(s): E86.0 - DE HYDRATION SNOMED Code(s): 06242073 (2) Weakness Current Visit: Yes Status: Acute Priority: High Code(s): R53.1 - WEAKNESS SNOMED Code(s): 18057039 (3) Hypercalcemia Current Visit: Yes Status: Acute Priority: High Code(s): E83.52 - HYPERCALCEMIA SNOMED Code(s): 42897680 (4) Renal cell adenocarcinoma Current Visit: Yes Status: Acute Priority: High Code(s): C64.9 - MALIGNANT NEOPLASM OF UNSP KIDNEY, EXCEPT RENAL PELVIS SNOMED Code(s): 998010886 Plan: Renal cell carcinoma -Recent disease progression -Patient due to start new medication regimen, fotivda, but has yet to start due to persisting n/v and weakness -Patient is NOT to start fotivda until after he's been reevaluated in the office. This was communicated to the patient/family. F/u scheduled for next week Weakness, nausea, vomiting -Patient had been experiencing the above symptoms to some degree. These however, progressed and worsened after receiving parenteral iron Feraheme. This is been documented in the office as an adverse reaction, different formulation of iron will be used for future supplementation. However, due to persisting symptoms s/p iron infusion over 3 weeks ago, this is likely related to metastat ic disease/disease progression. This could have also been contributed by hyperemesis canaboid syndrome, as pt has been increasing his dose of marijuana gummies. Recommend pt to stop taking marijuana gummies for now. -Compazine added to anti-emetic regimen as this worked better than zofran in the past. Megace added for appetite stimulant. Patient has been prescribed in the past but has not taken per . Discussed with patient the importance of adhering to medication regimen and advancing his diet/nutrition as tolerated because treatment will have to be on hold until his performance status improves. He verbalized understanding. Megace script sent to his pharmacy on file for discharge -Production Stage Manager consulted -Patient reports improvement since admission and he is tolerating oral intake. Denies any nausea vomiting diarrhea or abdominal pain. Plan for discharge today. Patient is cleared from a hem/onc standpoint once cleared by internal medicine and other consulted medical specialties Hypercalcemia: -Corrected calcium 11.6 yesterday. This may be contributing to symptoms of n/v and weakness. He continues on IV hydration and is s/p dose of pamidronate. Corrected calcium improved, 10.8 today.
== END 2022-10-13 17:28 | disposition home or self-care (01) ==
LOC: EC 09:56 → INTOOBSV 13:17 → 5NMEDONC 13:17
PROVIDERS: ADMIT Internal Medicine; ATTEND Internal Medicine
DX: R62.7 Adult failure to thrive (principal); R63.0 Anorexia; E86.0 Dehydration; E86.1 Hypovolemia; C64.9 Malignant neoplasm of unspecified kidney, except renal pelvis; R11.2 Nausea with vomiting, unspecified; C78.00 Secondary malignant neoplasm of unspecified lung; E03.9 Hypothyroidism, unspecified; E27.40 Unspecified adrenocortical insufficiency; E11.22 Type 2 diabetes mellitus with diabetic chronic kidney disease; I12.9 Hypertensive chronic kidney disease with stage 1 through stage 4 chronic kidney disease, or unspecified chronic kidney disease; N18.9 Chronic kidney disease, unspecified; K21.9 Gastro-esophageal reflux disease without esophagitis; J44.9 Chronic obstructive pulmonary disease, unspecified; K44.9 Diaphragmatic hernia without obstruction or gangrene; E83.52 Hypercalcemia; R05.3 Chronic cough; D50.9 Iron deficiency anemia, unspecified; D63.1 Anemia in chronic kidney disease; E87.1 Hypo-osmolality and hyponatremia; Z79.890 Hormone replacement therapy; Z79.899 Other long term (current) drug therapy; Z20.822 Contact with and (suspected) exposure to COVID-19; Z82.49 Family history of ischemic heart disease and other diseases of the circulatory system
CPT/HCPCS: 96376; 96361 ×3; 96365; 96366 ×2; 96375; 99285; 36415; 94760; 93005; 80053 ×2; 80048; 83690; 83735; 84484; 85025 ×3; 85610; 85730; 81001; 87636; 71046; G0378; S0183; J2430; J2405 ×2; S0179 ×2; C9113

== ENCOUNTER 2022-12-11 20:08 | Inpatient (IN) | payer OTHER ==
--- NOTE | 2022-12-11 20:15 | ED ---
General Adult HPI - General Source: patient, RN notes reviewed Mode of arrival: ambulatory Limitations: no limitations <Jorge Zhang - Last Filed: 12/11/22 20:14> - General Source: RN notes reviewed, old records reviewed Limitations: no limitations - History of Present Illness -: week(s) Radiation: non-radiation Quality: burning Consistency: constant Improves with: none Worsens with: none Associated Symptoms: shortness of breath, weakness Treatments Prior to Arrival: none <Adis Velasco - Last Filed: 12/18/22 14:00> - General Stated complaint: SOB, Weakness Time Seen by Provider: 12/11/22 20:14 - History of Present Illness Initial comments: 62-year-old male presents emergency Department chief complaint of generalized we akness. Patient states he feels like he will pass out if stands up more than 5 seconds. Patient states that he is not eating or drinking much last 4-5 days. Patient states that he does have renal cancer is supposed take chemo today but he did not because he was too weak. (Jorge Zhang) This is a 62-year-old male DF for evaluation of weakness persistent sleeping near syncopal and weak. Severe shortness of breath especially with activity and not eating or drinking currently. Patient is on chemotherapy for cancer. Patient denying any fevers (Adis Velasco) - Related Data Home Medications Medication Instructions Recorded Confirmed Omeprazole 20 mg PO DAILY 09/07/21 12/11/22 Hydrocortisone [Cortef] 5 mg PO HS 10/02/22 12/11/22 Hydrocortisone [Cortef] 10 mg PO BID@0900,1500 10/02/22 12/11/22 Levothyroxine Sodium [Synthroid] 100 mcg PO DAILY 10/02/22 12/11/22 Ondansetron Odt [Zofran ODT] 4 mg PO Q8HR PRN 10/02/22 12/11/22 Prochlorperazine [Compazine] 10 mg PO QID PRN 10/11/22 12/11/22 Tivozanib HCl [Fotivda] 1.34 mg PO DIRECTED 11/21/22 12/11/22 Benzonatate [Tessalon Perles] 100 mg PO TID PRN 12/11/22 12/11/22 traMADol HCL 50 mg PO Q8H PRN 12/11/22 12/11/22 Previous Rx's Medication Instructions Recorded Megestrol [Megace] 400 mg PO DAILY #14 ml 10/13/22 Acetaminophen Tab [Tylenol] 650 mg PO Q6HR PRN tab 11/24/22 Allergies Allergy/AdvReac Type Severity Reaction Status Date / Time No Known Allergies Allergy Verified 12/11/22 20:30 Review of Systems ROS Other: All systems not noted in ROS Statement are negative. <Jorge Zhang - Last Filed: 12/11/22 20:14> ROS Other: All systems not noted in ROS Statement are negative. <Adis Velasco - Last Filed: 12/18/22 14:00> ROS Statement: Those systems with pertinent positive or pertinent negative responses have been documented in the HPI. Past Medical History Past Medical History: Cancer, GERD/Reflux, Hypertension Additional Past Medical History / Comment(s): History of high blood pressure. Newly dx. cancer-kidney, chronic cough, possible lung ca History of Any Multi-Drug Resistant Organisms: None Reported Past Surgical History: Orthopedic Surgery Additional Past Surgical History / Comment(s): left arm, bx. of R kidney, colonoscopy Past Anesthesia/Blood Transfusion Reactions: No Reported Reaction Past Psychological History: No Psychological Hx Reported Smoking Status: Never smoker Past Alcohol Use History: Occasional Past Drug Use History: Marijuana - Past Family History Mother Family Medical History: Hypertension Father Family Medical History: Cancer Additional Family Medical History / Comment(s): colon <Jorge Zhang - Last Filed: 12/11/22 20:14> General Exam <Jorge Zhang - Last Filed: 12/11/22 20:14> General appearance: alert, anxious, lethargic, cachectic Head exam: Present: atraumatic, normocephalic, normal inspection Eye exam: Present: normal appearance, PERRL, EOMI. Absent: scleral icterus, conjunctival injection, periorbital swelling ENT exam: Present: normal exam, mucous membranes moist Neck exam: Present: normal inspection. Absent: tenderness, meningismus, lymphadenopathy Respiratory exam: Present: accessory muscle use, decreased breath sounds, prolonged expiratory. Absent: respiratory distress, wheezes, rales, rhonchi, stridor Cardiovascular Exam: Present: regular rate, normal rhythm, normal heart sounds. Absent: systolic murmur, diastolic murmur, rubs, gallop, clicks GI/Abdominal exam: Present: soft, normal bowel sounds. Absent: distended, tenderness, guarding, rebound, rigid Extremities exam: Present: normal inspection, full ROM, normal capillary refill. Absent: tenderness, pedal edema, joint swelling, calf tenderness Back exam: Present: normal inspection Neurological exam: Present: alert, oriented X3, CN II-XII intact Psychiatric exam: Present: normal affect, normal mood Skin exam: Present: warm, dry, intact, normal color. Absent: rash <Adis Velasco - Last Filed: 12/18/22 14:00> - General Exam Comments Initial Comments: Visual Physical Exam Vital signs reviewed General: Well-appearing, nontoxic, no acute distress. Head: Normocephalic, atraumatic Eyes: PERRLA, EOMI ENT: Airway patent Chest: Nonlabored breathing Skin: No visual rash, normal skin tone Neuro: Alert and oriented 3 Musculoskeletal: No gross abnormalities (Jorge Zhang) Course <Adis Velasco - Last Filed: 12/18/22 14:00> Vital Signs 12/11/22 12/11/22 12/12/22 20:30 23:29 01:00 Temperature 97.5 F L Pulse Rate 61 96 111 H Pulse Rate [ Pulse Oximetery ] Respiratory 18 18 18 Rate Blood Pressure 100/69 91/62 102/69 Blood Pressure [Right Arm] O2 Sat by Pulse 98 95 Oximetry 12/12/22 12/12/22 12/12/22 04:50 08:00 13:27 Temperature 97.6 F 98.0 F Pulse Rate 112 H Pulse Rate [ 116 H 115 H Pulse Oximetery ] Respiratory 18 18 18 Rate Blood Pressure 124/99 Blood Pressure 120/89 116/69 [Right Arm] O2 Sat by Pulse 97 92 L 92 L Oximetry 12/12/22 12/12/22 12/12/22 19:54 19:55 20:00 Temperature Pulse Rate 109 H 109 H 110 H Pulse Rate [ Pulse Oximetery ] Respiratory 24 24 23 Rate Blood Pressure 106/64 106/64 Blood Pressure [Right Arm] O2 Sat by Pulse 94 L 95 93 L Oximetry 12/12/22 20:30 Temperature Pulse Rate 107 H Pulse Rate [ Pulse Oximetery ] Respiratory 24 Rate Blood Pressure 103/64 Blood Pressure [Right Arm] O2 Sat by Pulse 95 Oximetry - Reevaluation(s) Reevaluation #1: 12/12/22 01:00 Medical records reviewed (Adis Velasco) Reevaluation #2: 12/12/22 01:01 Patient symptoms are unchanged (Adis Velasco) Reevaluation #3: 12/12/22 01:01 Patient informed results and questions answered (Adis Velasco) Reevaluation #4: 12/12/22 01:01 Was pt. sent in by a medical professional or institution (, SANCHEZ, AREA DIRECTOR, urgent care, hospital, or usp...) When possible be specific @ -no Did you speak to anyone other than the patient for history (EMS, parent, family, police, friend...)? What history was obtained from this source @ -no Did you review nursing and triage notes (agree or disagree)? Why? @ -agree Are old charts reviewed (outside hosp., previous admission, EMS record, old EKG, old radiological studies, urgent care reports/EKG's, usp records)? Report findings @ -yes Differential Diagnosis (chest pain, altered mental status, abdominal pain women, abdominal pain men, vaginal bleeding, weakness, fever, dyspnea, syncope, headache, dizziness, GI bleed, back pain, seizure, CVA, palpatations, mental health, musculoskeletal)? @ -prior EKG interpreted by me (3pts min.). @ -yes X-rays interpreted by me (1pt min.). @ -no CT interpreted by me (1pt min.). @ -no U/S interpreted by me (1pt. min.). @ -no What testing was considered but not performed or refused? (CT, X-rays, U/S, labs)? Why? @ -none What meds were considered but not given or refused? Why? @ -none Did you discuss the management of the patient with other professionals (professionals i.e. SANCHEZ Giordano, AREA DIRECTOR, lab, RT, psych nurse, social media marketer, qm nurse, teacher, probation officer, community case manager)? Give summary @ -no Was smoking cessation discussed for >3mins.? @ -no Was critical care preformed (if so, how long)? @ -no Were there social determinants of health that impacted care today? How? (Homelessness, low income, unemployed, alcoholism, drug addiction, transportation, low edu. Level, literacy, decrease access to med. care, skilled nursing, rehab)? @ -none Was there de-escalation of care discussed even if they declined (Discuss DNR or withdrawal of care, Hospice)? DNR status @ -no What co-morbidities impacted this encounter? (DM, HTN, Smoking, COPD, CAD, Cancer, CVA, ARF, Chemo, Hep., AIDS, mental health diagnosis, sleep apnea, morbid obesity)? @ -none Was patient admitted / discharged? Hospital course, mention meds given and route, prescriptions, significant lab abnormalities, going to OR and other pertinent info. @ - 59 female to the emergency department for evaluation of severe shortness of breath with weakness and inability to participate in activities of daily living sleeping persistently at eating or drinking. Patient does have significant pleural effusions noted on x-ray, patient be admitted for evaluation regarding pleural effusion with underlying history of CA Discharged Undiagnosed new problem with uncertain prognosis? @ -no Drug Therapy requiring intensive monitoring for toxicity (Heparin, Nitro, Insulin, Cardizem)? @ -no Were any procedures done? @ -no Diagnosis/symptom? @ -Pleural effusion cancer Acute, or Chronic, or Acute on Chronic? @ -Acute Uncomplicated (without systemic symptoms) or Complicated (systemic symptoms)? @ -Complicated Side effects of treatment? @ -no Exacerbation, Progression, or Severe Exacerbation? @ -exacerbation Poses a threat to life or bodily function? How? (Chest pain, [place], [place], pneumonia, PE, COPD, DKA, ARF, appy, cholecystitis, CVA, Diverticulitis, Homicidal, Suicidal, threat to staff... and all critical care pts) @ -yes severe distress respiratory distress (Adis Velasco) Reevaluation #5: 12/12/22 01:01 Differential Dyspnea: Coronary syndrome, arrhythmia, tamponade, asthma, COPD, pulmonary embolism, pneumonia, pneumothorax, pulmonary effusion, anaphylaxis, diabetic ketoacidosis, flailed chest, pulmonary contusion, diaphragmatic rupture, anemia, neuromuscular, this is not meant to be an all-inclusive list. Differential Weakness: Hypoglycemia, shock, sepsis, hyponatremia, anemia, infection, FL, ETOH, adverse medicine reaction, overdose, stroke, this is not meant to be an all-inclusive list. (Adis Velasco) - Consultations Consultation #1: Spoke with admitted physicians who agree to admit this patient (Adis Velasco) Medical Decision Making <Jorge Zhang - Last Filed: 12/11/22 20:14> - Lab Data Result diagrams: 12/13/22 08:50 12/14/22 09:41 - Radiology Data Radiology results: report reviewed (Chest x-ray shows significant pleural effusions right greater than left), image reviewed <Adis Velasco - Last Filed: 12/18/22 14:00> - Medical Decision Making I performed a quick note portion of the signed Jorge Zhang PA-Pablito (Jorge Zhang) 59 female to the emergency department for evaluation of severe shortness of breath with weakness and inability to participate in activities of daily living sleeping persistently at eating or drinking. Patient does have significant pleural effusions noted on x-ray, patient be admitted for evaluation regarding pleural effusion with underlying history of CA (Adis Velasco) - Lab Data Lab Results 12/11/22 12/11/22 12/11/22 Range/Units 20:50 20:50 20:50 WBC 10.4 (3.8-10.6) k/uL RBC 5.02 (4.30-5.90) m/uL Hgb 13.0 (13.0-17.5) gm/dL Hct 42.9 (39.0-53.0) % MCV 85.5 (80.0-100.0) fL MCH 25.9 (25.0-35.0) pg MCHC 30.3 L (31.0-37.0) g/dL RDW 17.4 H (11.5-15.5) % Plt Count 592 H (150-450) k/uL MPV 7.3 Neutrophils % 84 % Lymphocytes % 8 % Monocytes % 4 % Eosinophils % 2 % Basophils % 0 % Neutrophils # 8.8 H (1.3-7.7) k/uL Lymphocytes # 0.9 L (1.0-4.8) k/uL Monocytes # 0.4 (0-1.0) k/uL Eosinophils # 0.2 (0-0.7) k/uL Basophils # 0.0 (0-0.2) k/uL Hypochromasia Moderate Anisocytosis Slight PT 12.1 H (9.0-12.0) sec INR 1.2 H (<1.2) APTT 28.2 (22.0-30.0) sec Sodium 131 L (137-145) mmol/L Potassium 5.0 (3.5-5.1) mmol/L Chloride 99 (98-107) mmol/L Carbon Dioxide 17 L (22-30) mmol/L Anion Gap 15 mmol/L BUN 21 H (9-20) mg/dL Creatinine 0.97 (0.66-1.25) mg/dL Est GFR (CKD-EPI)AfAm >90 (>60 ml/min/1.73 sqM) Est GFR (CKD-EPI)NonAf 83 (>60 ml/min/1.73 sqM) Glucose 117 H (74-99) mg/dL Lactic Ac Sepsis Rflx Plasma Lactic Acid Garret (0.7-2.0) mmol/L Calcium 11.3 H (8.4-10.2) mg/dL Magnesium 2.0 (1.6-2.3) mg/dL Total Bilirubin 0.8 (0.2-1.3) mg/dL AST 38 (17-59) U/L ALT 17 (4-49) U/L Alkaline Phosphatase 86 (38-126) U/L Troponin I (0.000-0.034) ng/mL NT-Pro-B Natriuret Pep 2020 pg/mL Total Protein 6.4 (6.3-8.2) g/dL Albumin 3.1 L (3.5-5.0) g/dL 12/11/22 12/11/22 12/11/22 Range/Units 20:50 20:50 21:53 WBC (3.8-10.6) k/uL RBC (4.30-5.90) m/uL Hgb (13.0-17.5) gm/dL Hct (39.0-53.0) % MCV (80.0-100.0) fL MCH (25.0-35.0) pg MCHC (31.0-37.0) g/dL RDW (11.5-15.5) % Plt Count (150-450) k/uL MPV Neutrophils % % Lymphocytes % % Monocytes % % Eosinophils % % Basophils % % Neutrophils # (1.3-7.7) k/uL Lymphocytes # (1.0-4.8) k/uL Monocytes # (0-1.0) k/uL Eosinophils # (0-0.7) k/uL Basophils # (0-0.2) k/uL Hypochromasia Anisocytosis PT (9.0-12.0) sec INR (<1.2) APTT (22.0-30.0) sec Sodium (137-145) mmol/L Potassium (3.5-5.1) mmol/L Chloride (98-107) mmol/L Carbon Dioxide (22-30) mmol/L Anion Gap mmol/L BUN (9-20) mg/dL Creatinine (0.66-1.25) mg/dL Est GFR (CKD-EPI)AfAm (>60 ml/min/1.73 sqM) Est GFR (CKD-EPI)NonAf (>60 ml/min/1.73 sqM) Glucose (74-99) mg/dL Lactic Ac Sepsis Rflx Y Plasma Lactic Acid Garret 3.9 H* (0.7-2.0) mmol/L Calcium (8.4-10.2) mg/dL Magnesium (1.6-2.3) mg/dL Total Bilirubin (0.2-1.3) mg/dL AST (17-59) U/L ALT (4-49) U/L Alkaline Phosphatase (38-126) U/L Troponin I <0.012 (0.000-0.034) ng/mL NT-Pro-B Natriuret Pep pg/mL Total Protein (6.3-8.2) g/dL Albumin (3.5-5.0) g/dL 12/12/22 Range/Units 00:32 WBC (3.8-10.6) k/uL RBC (4.30-5.90) m/uL Hgb (13.0-17.5) gm/dL Hct (39.0-53.0) % MCV (80.0-100.0) fL MCH (25.0-35.0) pg MCHC (31.0-37.0) g/dL RDW (11.5-15.5) % Plt Count (150-450) k/uL MPV Neutrophils % % Lymphocytes % % Monocytes % % Eosinophils % % Basophils % % Neutrophils # (1.3-7.7) k/uL Lymphocytes # (1.0-4.8) k/uL Monocytes # (0-1.0) k/uL Eosinophils # (0-0.7) k/uL Basophils # (0-0.2) k/uL Hypochromasia Anisocytosis PT (9.0-12.0) sec INR (<1.2) APTT (22.0-30.0) sec Sodium (137-145) mmol/L Potassium (3.5-5.1) mmol/L Chloride (98-107) mmol/L Carbon Dioxide (22-30) mmol/L Anion Gap mmol/L BUN (9-20) mg/dL Creatinine (0.66-1.25) mg/dL Est GFR (CKD-EPI)AfAm (>60 ml/min/1.73 sqM) Est GFR (CKD-EPI)NonAf (>60 ml/min/1.73 sqM) Glucose (74-99) mg/dL Lactic Ac Sepsis Rflx Plasma Lactic Acid Garret 3.2 H* (0.7-2.0) mmol/L Calcium (8.4-10.2) mg/dL Magnesium (1.6-2.3) mg/dL Total Bilirubin (0.2-1.3) mg/dL AST (17-59) U/L ALT (4-49) U/L Alkaline Phosphatase (38-126) U/L Troponin I (0.000-0.034) ng/mL NT-Pro-B Natriuret Pep pg/mL Total Protein (6.3-8.2) g/dL Albumin (3.5-5.0) g/dL Disposition <Jorge Zhang - Last Filed: 12/11/22 20:14> Is patient prescribed a controlled substance at d/c from ED?: No Time of Disposition: 01:00 <Adis Velasco - Last Filed: 12/18/22 14:00> Clinical Impression: Dehydration, Generalized weakness, Weakness, Bilateral pleural effusion, Hypercalcemia, CHF (congestive heart failure) Disposition: ADMITTED IP TO THIS HOSP Condition: Fair
[2022-12-11 21:27] LABS: Anisocytosis Slight; Basophils % (A) 0 %; Eosinophils # (A) 0.2 k/uL (0-0.7); Eosinophils % (A) 2 %; HCT 42.9 % (39.0-53.0); Hypochromasia Moderate; Lymphocytes # (A) 0.9 k/uL (1.0-4.8); Lymphocytes % (A) 8 %; MCH 25.9 pg (25.0-35.0); MCHC 30.3 g/dL (31.0-37.0); MCV 85.5 fL (80.0-100.0); Mean Platelet Volume 7.3; Monocytes # (A) 0.4 k/uL (0-1.0); Monocytes % (A) 4 %; Neutrophils # (A) 8.8 k/uL (1.3-7.7); Neutrophils % (A) 84 %; Platelet Count 592 k/uL (150-450); RBC 5.02 m/uL (4.30-5.90); RDW 17.4 % (11.5-15.5); WBC 10.4 k/uL (3.8-10.6)
[2022-12-11 21:37] LABS: ALT 17 U/L (4-49); African American GFR (CKD) >90 (>60 ml/min/1.73 sqM); Albumin 3.1 g/dL (3.5-5.0); Anion Gap 15 mmol/L; Blood Urea Nitrogen 21 mg/dL (9-20); Calcium 11.3 mg/dL (8.4-10.2); Carbon Dioxide 17 mmol/L (22-30); Chloride 99 mmol/L (98-107); Glucose 117 mg/dL (74-99); Non-African American GFR(CKD) 83 (>60 ml/min/1.73 sqM); Sodium 131 mmol/L (137-145); Total Bilirubin 0.8 mg/dL (0.2-1.3); Total Protein 6.4 g/dL (6.3-8.2)
[2022-12-11 21:39] LABS: INR 1.2 (<1.2); Partial Thromboplastin Time 28.2 sec (22.0-30.0); Prothrombin Time 12.1 sec (9.0-12.0)
[2022-12-11 21:44] LABS: AST 38 U/L (17-59); Alkaline Phosphatase 86 U/L (38-126)
[2022-12-11 21:46] LABS: NT-Pro-B-Type Natriuretic Pept 2020 pg/mL
--- NOTE | 2022-12-11 23:14 | XR ---
EXAM: XR Chest, 2 Views CLINICAL HISTORY: ITS.REASON XR Reason: Weakness TECHNIQUE: Frontal and lateral views of the chest. COMPARISON: No relevant prior studies available. FINDINGS: Lungs: See below. Pleural space: Moderate LEFT and small RIGHT pleural effusions. Mild pulmonary vascular congestion. No pneumothorax. Heart: Unremarkable. No cardiomegaly. Mediastinum: Large hiatal hernia. Bones/joints: Unremarkable. IMPRESSION: 1. Moderate LEFT and small RIGHT pleural effusions. Mild pulmonary vascular congestion. Correlate for congestive heart failure. 2. Large hiatal hernia.
[2022-12-12] MEDS ORDERED: NALOXONE 0.4 MG/ML 1 ML VIAL IV PRN (00:49)
[2022-12-12] MEDS ORDERED: ONDANSETRON 4 MG/2 ML VIAL IVP PRN (00:49)
--- NOTE | 2022-12-12 07:25 | P.CNPUL ---
History of Present Illness Consult date: 12/12/22 Requesting physician: Adis Velasco Reason for consult: dyspnea, pleural effusion Chief complaint: Generalized weakness, exertional dyspnea History of present illness: I am seeing this patient in consultation today 12/12/2022 in the emergency room in regard to exertional dyspnea and bilateral pleural effusions. Patient is a 62-year-old white male with past medical history significant for metastatic renal cell carcinoma with progression to the lungs and mediastinum, hypertension, GERD, hiatal hernia. Patient presented to emergency room last night complaining of generalized weakness. Patient does follow with Dr. French from oncology. He has not been eating or drinking much over the last week. He also admits to exertional dyspnea and a persistent nonproductive cough. Denies any fevers, chills, myalgias, sputum production, hemoptysis. Denies sick contacts. Denies any chest pain, heart palpitations, lower extremity swelling, orthopnea. Patient is currently sitting up in bed, on room air, in no acute distress. He is emaciated. He does have a dry nonproductive persistent cough. Chest x-ray on arrival showed mild pulmonary vascular congestion and moderate left and small right pleural effusions. There was a large hiatal hernia. No focal infiltrates or evidence of pneumonia. Patient denies any previous thoracentesis. CBC on arrival was unremarkable. BMP on arrival shows sodium 131, potassium 5, chloride 99, serum bicarb 17, BUN 21, creatinine 0.97, glucose 117. Lactic acid level was 3.9 now down to 2.3. Afebrile. Normal saline is infusing at 75 ML's per hour. Troponin less than 0.012. NT proBNP 2020. Patient is hemodynamically stable. Review of Systems REVIEW OF SYSTEMS: CONSTITUTIONAL: Admits significant weight loss over the last year, unsure of how much EYES: Denies change in vision. EARS, NOSE, MOUTH, THROAT: Denies headaches, denies sore throat. CARDIOVASCULAR: Denies chest pain, palpitations or syncopal episodes. RESPIRATORY: See HPI GASTROINTESTINAL: Denies abdominal pain, nausea and vomiting, or diarrhea. Admits reduced appetite. GENITOURINARY: Denies infectious urinary complaints besides some occasional hematuria, MUSKULOSKELETAL: Denies pain, denies swelling. INTEGUMENTARY: Denies rash, denies eczema. NEUROLOGICAL: Denies recent memory loss, no recent seizure activity. PSYCHIATRIC: Denies anxiety, denies depression. HEMATOLOGIC/LYMPHATIC: Denies anemia, denies enlarged lymph node Past Medical History Past Medical History: Cancer, GERD/Reflux, Hypertension Additional Past Medical History / Comment(s): History of high blood pressure. Newly dx. cancer-kidney, chronic cough, possible lung ca History of Any Multi-Drug Resistant Organisms: None Reported Past Surgical History: Orthopedic Surgery Additional Past Surgical History / Comment(s): left arm, bx. of R kidney, colonoscopy Past Anesthesia/Blood Transfusion Reactions: No Reported Reaction Past Psychological History: No Psychological Hx Reported Smoking Status: Never smoker Past Alcohol Use History: Occasional Past Drug Use History: Marijuana - Past Family History Mother Family Medical History: Hypertension Father Family Medical History: Cancer Additional Family Medical History / Comment(s): colon Medications and Allergies Home Medications Medication Instructions Recorded Confirmed Type Omeprazole 20 mg PO DAILY 09/07/21 12/11/22 History Hydrocortisone [Cortef] 5 mg PO HS 10/02/22 12/11/22 History Hydrocortisone [Cortef] 10 mg PO BID@0900,1500 10/02/22 12/11/22 History Levothyroxine Sodium [Synthroid] 100 mcg PO DAILY 10/02/22 12/11/22 History Ondansetron Odt [Zofran ODT] 4 mg PO Q8HR PRN 10/02/22 12/11/22 History Prochlorperazine [Compazine] 10 mg PO QID PRN 10/11/22 12/11/22 History Megestrol [Megace] 400 mg PO DAILY #14 ml 10/13/22 12/11/22 Rx Tivozanib HCl [Fotivda] 1.34 mg PO DIRECTED 11/21/22 12/11/22 History Acetaminophen Tab [Tylenol] 650 mg PO Q6HR PRN tab 11/24/22 12/11/22 Rx Furosemide [Lasix] 20 mg PO DAILY 30 Days #30 tab 11/24/22 12/11/22 Rx Benzonatate [Tessalon Perles] 100 mg PO TID PRN 12/11/22 12/11/22 History traMADol HCL 50 mg PO Q8H PRN 12/11/22 12/11/22 History Allergies Allergy/AdvReac Type Severity Reaction Status Date / Time No Known Allergies Allergy Verified 12/11/22 20:30 Physical Exam Vitals: Vital Signs Temp Pulse Resp BP Pulse Ox 12/12/22 04:50 112 H 18 124/99 97 12/12/22 01:00 111 H 18 102/69 95 12/11/22 23:29 96 18 91/62 12/11/22 20:30 97.5 F L 61 18 100/69 98 Intake and Output 12/11/22 12/11/22 12/12/22 14:59 22:59 06:59 Other: Weight 65.771 kg GENERAL EXAM: Alert, 62-year-old white male, appears cachectic, fairly comf ortable in no apparent distress. HEAD: Normocephalic and atraumatic EYES: Normal reaction of pupils, equal size. NOSE: Clear with pink turbinates. THROAT: No erythema or exudates. NECK: No masses, no JVD. CHEST: No chest wall deformity. LUNGS: Diminished left lower lung sounds. No wheezes, rhonchi, crackles. On room air. No conversational dyspnea or accessory muscle use.. CVS: S1 and S2 normal with no audible murmur, regular rhythm. No extra heart sounds ABDOMEN: No hepatosplenomegaly, active bowel sounds, no guarding or rigidity. SPINE: No scoliosis or deformity SKIN: No rashes CENTRAL NERVOUS SYSTEM: No focal deficits, tone is normal in all 4 extremities. EXTREMITIES: There is no peripheral edema, clubbing, or cyanosis. Peripheral pulses are intact. Results - Laboratory Findings CBC and BMP: 12/11/22 20:50 12/11/22 20:50 PT/INR, D-dimer PT 12.1 sec (9.0-12.0) H 12/11/22 20:50 INR 1.2 (<1.2) H 12/11/22 20:50 Abnormal lab findings: Abnormal Labs 12/11/22 12/11/22 12/11/22 20:50 20:50 20:50 MCHC 30.3 L RDW 17.4 H Plt Count 592 H Neutrophils # 8.8 H Lymphocytes # 0.9 L PT 12.1 H INR 1.2 H Sodium 131 L Carbon Dioxide 17 L BUN 21 H Glucose 117 H Plasma Lactic Acid Garret Calcium 11.3 H Albumin 3.1 L 12/11/22 12/12/22 12/12/22 20:50 00:32 03:59 MCHC RDW Plt Count Neutrophils # Lymphocytes # PT INR Sodium Carbon Dioxide BUN Glucose Plasma Lactic Acid Garret 3.9 H* 3.2 H* 2.3 H* Calcium Albumin - Diagnostic Findings Chest x-ray: image reviewed Assessment and Plan Assessment: Dyspnea, currently under investigation. Chest x-ray on arrival showed mild pulmonary vascular congestion and moderate left and small right pleural effusions. There was a large hiatal hernia. No focal infiltrates or evidence of pneumonia. Acute cough Generalized weakness Metabolic anion gap acidosis, secondary to lactic acidosis Renal cell carcinoma with known metastasis to lungs and mediastinum. Currently on Fotivda. History of adrenal insufficiency Severe protein calorie malnutrition, secondary to above Benign essential hypertension Anemia of chronic disease GERD without esophagitis Large hiatal hernia Plan: Patient's medications, labs, chest x-ray reviewed On room air Obtain chest ultrasound for possible thoracentesis. Add Primo James as antitussive Oncology is been consulted We will continue to follow, and further recommendations are forthcoming. I have personally seen and examined the patient, performed the documentation and the assessment and plan as written. Number of minutes spent on the visit:20 Time with Patient: Greater than 30
--- NOTE | 2022-12-12 08:17 | US ---
EXAMINATION TYPE: US chest DATE OF EXAM: 12/12/2022 COMPARISON: NONE CLINICAL INDICATION: Male, 62 years old with history of left sided pleural effusion; left plueral eff usion TECHNIQUE: Targeted ultrasound of the posterior lower left hemithorax EXAM MEASUREMENTS: Left Pleural Effusion pocket size: 10.7 cm tissue seen at 5.8 cm in fluid pocket. Left skin surface to fluid distance: 1.4 cm Left side marked for possible thoracentesis outside the dept. Pulmonologists are able to review the images in the patient?s EMR. IMPRESSIONS: Left pleural effusion
[2022-12-12] MEDS: BENZONATATE 100 MG CAP PO SCH ×3 (09:26→21:26)
[2022-12-12] MEDS ORDERED: ONDANSETRON ODT 4 MG TAB PO PRN (09:46)
[2022-12-12] MEDS ORDERED: ACETAMINOPHEN TAB 325 MG TAB PO PRN (09:46)
[2022-12-12] MEDS ORDERED: PROCHLORPERAZINE 10 MG TAB PO PRN (09:46)
[2022-12-12] MEDS ORDERED: traMADol 50 MG TAB PO PRN (09:46)
--- NOTE | 2022-12-12 10:09 | P.CRDCN ---
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 Patient does not follow with a hoof trimmer. We have been ask ed to see the patient in consultation for pleural effusions. Patient examined at the bedside in the emergency room. The patient is somewhat of a poor historian. There is no family present. The patient states he presented to the hospital for chief complaint of shortness of breath and a cough. He denies having any chest pain or pressure. He denies any previous cardiac conditions including coronary artery disease or congestive heart failure. * Chest xray moderate left and small right pleural effusions. Mild pulmonary vascular congestion. Large hiatal hernia. * Current home cardiac medications include Lasix 20 mg daily * No previous echocardiogram available in EMR * Cardiac catheterization history: Patient denies REVIEW OF SYSTEMS: At the time of my exam: CONSTITUTIONAL: Denies fever or chills. HEENT: Denies blurred vision, vision changes, or eye pain. Denies hemoptysis CARDIOVASCULAR: Denies chest pain. Denies orthopnea. Denies PND. Denies palpitations RESPIRATORY: Denies shortness of breath. GASTROINTESTINAL: Denies abdominal pain. Denies nausea or vomiting. HEMATOLOGIC: Denies bleeding disorders. GENITOURINARY: Denies any blood in urine. SKIN: Denies pruitis. Denies rash. PHYSICAL EXAM: VITAL SIGNS: Reviewed. GENERAL: Well-developed in no acute distress. Thin. Cachectic. HEENT: Head is normocephalic. Pupils are equal, round. Sclerae anicteric. Mucous membranes of the mouth are moist. Neck supple. No JVD or thyromegaly LUNGS: Respirations even and unlabored. Lungs significant lead diminished on the left HEART: Regular rate and rhythm. S1 and S2 heard. ABDOMEN: Soft. Nondistended. Nontender. EXTREMITIES: Normal range of motion. No clubbing or cyanosis. Peripheral pulses intact. No lower extremity edema NEUROLOGIC: Awake and alert. Oriented x 3. ASSESSMENT: Shortness of breath and cough Bilateral pleural effusions, left greater than right Renal cell carcinoma with metastasis to lungs and mediastinum History of hypertension History of GERD History of large hiatal hernia PLAN: We will obtain 2-D echo to assess cardiac structure and function. Management of pleural effusions per pulmonary medicine. If 2-D echo does not reveal any significant abnormalities, no further inpatient cardiac workup is required. Nurse practitioner note has been reviewed by physician. Signing provider agrees with the documented findings, assessment, and plan of care. Past Medical History Past Medical History: Cancer, GERD/Reflux, Hypertension Additional Past Medical History / Comment(s): History of high blood pressure. Newly dx. cancer-kidney, chronic cough, possible lung ca History of Any Multi-Drug Resistant Organisms: None Reported Past Surgical History: Orthopedic Surgery Additional Past Surgical History / Comment(s): left arm, bx. of R kidney, colonoscopy Past Anesthesia/Blood Transfusion Reactions: No Reported Reaction Past Psychological History: No Psychological Hx Reported Smoking Status: Never smoker Past Alcohol Use History: Occasional Past Drug Use History: Marijuana - Past Family History Mother Family Medical History: Hypertension Father Family Medical History: Cancer Additional Family Medical History / Comment(s): colon Medications and Allergies Home Medications Medication Instructions Recorded Confirmed Type Omeprazole 20 mg PO DAILY 09/07/21 12/11/22 History Hydrocortisone [Cortef] 5 mg PO HS 10/02/22 12/11/22 History Hydrocortisone [Cortef] 10 mg PO BID@0900,1500 10/02/22 12/11/22 History Levothyroxine Sodium [Synthroid] 100 mcg PO DAILY 10/02/22 12/11/22 History Ondansetron Odt [Zofran ODT] 4 mg PO Q8HR PRN 10/02/22 12/11/22 History Prochlorperazine [Compazine] 10 mg PO QID PRN 10/11/22 12/11/22 History Megestrol [Megace] 400 mg PO DAILY #14 ml 10/13/22 12/11/22 Rx Tivozanib HCl [Fotivda] 1.34 mg PO DIRECTED 11/21/22 12/11/22 History Acetaminophen Tab [Tylenol] 650 mg PO Q6HR PRN tab 11/24/22 12/11/22 Rx Furosemide [Lasix] 20 mg PO DAILY 30 Days #30 tab 11/24/22 12/11/22 Rx Benzonatate [Tessalon Perles] 100 mg PO TID PRN 12/11/22 12/11/22 History traMADol HCL 50 mg PO Q8H PRN 12/11/22 12/11/22 History Allergies Allergy/AdvReac Type Severity Reaction Status Date / Time No Known Allergies Allergy Verified 12/11/22 20:30 Physical Exam Vitals: Vital Signs Temp Pulse Resp BP Pulse Ox 12/12/22 04:50 112 H 18 124/99 97 12/12/22 01:00 111 H 18 102/69 95 12/11/22 23:29 96 18 91/62 12/11/22 20:30 97.5 F L 61 18 100/69 98 Intake and Output 12/11/22 12/12/22 12/12/22 22:59 06:59 14:59 Other: Weight 65.771 kg Results 12/11/22 20:50 12/11/22 20:50 Cardiac Enzymes 12/11/22 12/11/22 Range/Units 20:50 20:50 AST 38 (17-59) U/L Troponin I <0.012 (0.000-0.034) ng/mL Coagulation 12/11/22 Range/Units 20:50 PT 12.1 H (9.0-12.0) sec APTT 28.2 (22.0-30.0) sec CBC 12/11/22 Range/Units 20:50 WBC 10.4 (3.8-10.6) k/uL RBC 5.02 (4.30-5.90) m/uL Hgb 13.0 (13.0-17.5) gm/dL Hct 42.9 (39.0-53.0) % Plt Count 592 H (150-450) k/uL Comprehensive Metabolic Panel 12/11/22 Range/Units 20:50 Sodium 131 L (137-145) mmol/L Potassium 5.0 (3.5-5.1) mmol/L Chloride 99 (98-107) mmol/L Carbon Dioxide 17 L (22-30) mmol/L BUN 21 H (9-20) mg/dL Creatinine 0.97 (0.66-1.25) mg/dL Glucose 117 H (74-99) mg/dL Calcium 11.3 H (8.4-10.2) mg/dL AST 38 (17-59) U/L ALT 17 (4-49) U/L Alkaline Phosphatase 86 (38-126) U/L Total Protein 6.4 (6.3-8.2) g/dL Albumin 3.1 L (3.5-5.0) g/dL Current Medications Generic Name Dose Route Start Last Admin Trade Name Chely PRN Reason Stop Dose Admin Acetaminophen 650 mg 12/12/22 09:46 Acetaminophen Tab 325 Mg Tab PO Q6HR PRN Mild Pain or Fever > 100.5 Benzonatate 200 mg 12/12/22 09:00 12/12/22 09:26 Benzonatate 100 Mg Cap PO 200 mg TID [facility] Administration Hydrocortisone 5 mg 12/12/22 21:00 Hydrocortisone 10 Mg Tab PO HS [facility] Hydrocortisone 10 mg 12/12/22 15:00 Hydrocortisone 10 Mg Tab PO BID@0900,1500 [facility] Levothyroxine Sodium 100 mcg 12/12/22 10:00 Levothyroxine 100 Mcg Tab PO DAILY@0630 [facility] Megestrol Acetate 400 mg 12/12/22 10:00 Megestrol 400 Mg/10 Ml Cup PO DAILY [facility] Morphine Sulfate 4 mg 12/12/22 00:49 Morphine Sulfate 4 Mg/Ml Syringe IV Q4HR PRN Severe Pain (Scale 7 to 10) Naloxone HCl 0.2 mg 12/12/22 00:49 Naloxone 0.4 Mg/Ml 1 Ml Vial IV Q2M PRN Opioid Reversal Ondansetron HCl 4 mg 12/12/22 00:49 Ondansetron 4 Mg/2 Ml Vial IVP Q8HR PRN Nausea And Vomiting Ondansetron HCl 4 mg 12/12/22 09:46 Ondansetron Odt 4 Mg Tab PO Q8HR PRN Nausea And Vomiting Pantoprazole Sodium 40 mg 12/12/22 10:00 Pantoprazole 40 Mg Tablet PO DAILY@0730 [facility] Prochlorperazine Maleate 10 mg 12/12/22 09:46 Prochlorperazine 10 Mg Tab PO QID PRN Nausea Tramadol HCl 50 mg 12/12/22 09:46 Tramadol 50 Mg Tab PO Q8H PRN Pain Intake and Output 12/11/22 12/12/22 12/12/22 22:59 06:59 14:59 Other: Weight 65.771 kg 12/11/22 20:50 12/11/22 20:50
[2022-12-12] MEDS: LEVOTHYROXINE 100 MCG TAB PO SCH (10:50)
[2022-12-12] MEDS: PANTOPRAZOLE 40 MG TABLET PO SCH (10:50)
[2022-12-12] MEDS: MEGESTROL 400 MG/10 ML CUP PO SCH (10:52)
[2022-12-12] MEDS ORDERED: IOPAMIDOL CONTRAST (ORAL USE) VIAL PO PRN (11:59)
[2022-12-12] MEDS ORDERED: SODIUM CHLORIDE 0.9% 250 ML with PAMIDRONATE 60 MG IV ONE ×2 (12:30)
[2022-12-12] MEDS: SODIUM CHLORIDE 0.9% 1,000 ML IV SCH ×2 (13:19→21:23)
[2022-12-12 15:00] LABS: ALT 13 U/L (4-49); AST 27 U/L (17-59); African American GFR (CKD) >90 (>60 ml/min/1.73 sqM); Albumin 2.3 g/dL (3.5-5.0); Albumin/Globulin Ratio 0.8; Alkaline Phosphatase 70 U/L (38-126); Anion Gap 9 mmol/L; Blood Urea Nitrogen 19 mg/dL (9-20); Calcium 10.8 mg/dL (8.4-10.2); Carbon Dioxide 18 mmol/L (22-30); Chloride 99 mmol/L (98-107); Globulin 2.8 g/dL; Glucose 100 mg/dL (74-99); Non-African American GFR(CKD) >90 (>60 ml/min/1.73 sqM); Potassium 4.2 mmol/L (3.5-5.1); Sodium 126 mmol/L (137-145); Total Bilirubin 0.5 mg/dL (0.2-1.3); Total Protein 5.1 g/dL (6.3-8.2)
--- NOTE | 2022-12-12 15:07 | CT ---
EXAMINATION TYPE: CT ChestAbdPelvis w con CT DLP: 854.8 mGycm, Automated exposure control for dose reduction was used. DATE OF EXAM: 12/12/2022 2:48 PM COMPARISON: 09/20/2022. CLINICAL INDICATION:Male, 62 years old with history of met renal cell carcinoma, eval tx response; PH H, renal ca, possible mets Technique: Multiple axial images of the chest, abdomen, and pelvis were obtained. Two-dimensional cor onal and sagittal reconstructions were obtained. Contrast used:100 mL of Isovue 370 with IV Contrast, Oral contrast used: with Oral Contrast Findings: CHEST: LUNGS/ PLEURA: Bilateral loculated pleural effusions. Left upper lobe airspace opacities with necroti c masses medially near the anterior aspect measuring up to 4.0 x 3.8 cm. Right upper lung pulmonary n odule measuring 17 cm millimeters additional scattered other nodules in the right middle lobe/lower r ight upper lobe measuring 16 mm. Left upper lobe airspace opacities could represent postobstructive a telectasis AIRWAY: There is narrowing of the left main bronchus with a slitlike appearance series 201 image 26e HEART: Size within normal limits. MEDIASTINUM: Prior some enlarged lymph nodes in the mediastinum which are suspicious; AP window measu ring 12 mm in short axis right low paratracheal measuring 9 mm in short axis. Subcarinal measuring 11 mm in short axis. Prevascular space measuring 10 mm in short axis. Left lower neck measuring 15 mm i n short axis. There is a hiatal hernia containing what is thought to be the stomach. There is some mo tion artifact. VASCULATURE: Atherosclerotic calcifications are present throughout the aorta and its branches. MUSCULOSKELETAL: No acute osseous abnormalities. SOFT TISSUES/LYMPH NODES: Unremarkable. LOWER NECK: No significant findings. ABDOMEN: ABDOMEN LIVER: Extensive metastatic disease throughout the liver now present, the largest in the left hepatic lobe measuring at least 3.1 and the right hepatic lobe measuring 1.5 cm GALLBLADDER AND BILE DUCTS: Dilated and rotated anteriorly compared to prior. PANCREAS: Unremarkable. SPLEEN: Unremarkable. ADRENAL GLANDS: Unremarkable. KIDNEYS AND URETERS: No evidence of hydronephrosis or renal calculus. The ureters are unremarkable. Large heterogenous right superior pole renal mass measuring up to 11.1 x 7.9 cm with extension into t he vein and towards the retroperitoneum. PELVIS BLADDER: Unremarkable REPRODUCTIVE: Unremarkable. ABDOMEN & PELVIS STOMACH AND BOWEL: No evidence of bowel obstruction. PERITONEUM: No evidence of pneumoperitoneum or free fluid. VASCULATURE: No evidence of aortic aneurysm. MUSCULOSKELETAL: T12 vertebral body lucent area suspicious for metastatic disease, measuring 14 mm. LYMPH NODES: Retroperitoneal lymphadenopathy measuring up to 16 mm SOFT TISSUE/ABDOMINAL WALL: Unremarkable IMPRESSION: Motion limited exam. 1. Progression of disease with increasing size of right renal mass with new and enlarged liver metas tatic foci, new retroperitoneal lymph nodes, new pulmonary nodules with new loculated pleural effusio ns, new mediastinal lymphadenopathy. 2. Subtle suspicious lucent area within the L1 vertebral body. May represent osseous metastatic dise ase. 3. Left upper lobe airspace consolidation which could be partially due to obstruction concerning for infectious/inflammatory process possibly secondary to post obstructive etiology given narrowing of t he left main bronchus. 4. Large hiatal hernia containing loop of stomach.
--- NOTE | 2022-12-12 16:02 | XR ---
EXAMINATION TYPE: XR chest 1V portable DATE OF EXAM: 12/12/2022 COMPARISON: 12/11/2022 HISTORY: Post left thoracentesis FINDINGS: There are bilateral pleural effusions with cardiomegaly and bibasilar infiltrate. There is a diffuse interstitial pattern. Large hiatal hernia. Arthropathy of the shoulders with diffuse osteopenia. Api namrata pleural thickening on the left. IMPRESSION: 1. No sizable pneumothorax. 2. Large hiatal hernia. 3. Diffuse pleural parenchymal changes correlate CHF otherwise consider pneumonia.
[2022-12-12] MEDS: HYDROCORTISONE 10 MG TAB PO SCH ×2 (16:07→21:54)
--- NOTE | 2022-12-12 16:30 | P.CONS ---
History of Present Illness - Reason for Consult Consult date: 12/12/22 [facility] Requesting physician: Adis Velasco - Chief Complaint SOB, confusion - History of Present Illness Mr. Sanchez is a 61-year-old male patient of Dr. Lacey French with a PMH of anemia of CKD, Iron deficiency,HTN, hypothyroidism, and metastatic renal cell carcinoma. Patient referred for right renal mass and lung lesions September 2019. He had symptoms of progressive fatigue, 25-30 pound weight loss over 3 months, right flank/lower back pain. Seen at [facility], workup showed acute kidney injury, hypercalcemia and microcytic anemia. CT CAP 09/08/21 showed a 0.3 x 10.7 cm superior pole right renal mass along with multiple irregular lung nodules bilaterally. Biopsy 09/09/21 reported necrotic neoplasm, insufficient for further characterization. 09/22/21 bronchoscopy and biopsy of station 7 lymph node and right upper lobe mass consistent with renal cell carcinoma. Patient was started on dual immunotherapy, completed 4 cycles 12/24. He continued on s tony agent immunotherapy until 05/25 was found to have disease progression on imaging. He was started on cabometyx, poor tolerance, even with dose reduction 2. 09/20/22 CT CAP noted findings concerning for disease progression in lung nodules with no new sites of disease. Patient had persistent nausea and vomiting following first dose of Feraheme on 09/29/2022 requiring inpatient admission x2. Patient was started on tivozanib 10/2022. He was then hospitalized for hypercalcemia in November. He resumed tivozanib on 11/23/2022 following discharge. Patient was seen last week in clinic and was overall doing well, c/o cough intermittently and fatigue. Reported gaining 2 lbs and having increased appetite. Pt scheduled for repeat CT CAP on 01/04 to evaluate treatment response. Patient was seen in the ER at today's visit, at bedside. states over the last 4 days patient has been in bed with increasing weakness and decreased oral intake. She states he has ate very little but is tolerating fluids. She also reports over the last couple days he has become increasingly confused. Denies nausea vomiting diarrhea and abdominal pain. Reports normal bowel movement last night. Reports persisting cough but states that cough has been worsening with associated shortness of breath. Denies fever and chills. Upon admission chest x-ray revealed moderate left and small right pleural effusions. Mild pulmonary vascular congestion. Ultrasound chest revealed left pleural effusion. Pulmonary consulted with plan for thoracentesis, pending US. Upon review of labs, WBC 10.4, hemoglobin 13.0, platelets 592,000. Creatinine 0.97. Lactic acid 3.9. Calcium 11.3, corrected calcium 12.0. Calcium in clinic on 12/07 was 9.1. UA pending. COVID, flu, and RSV negative. Patient afebrile. SPO2 97% on room air. Review of Systems 10 point ROS is negative except as stated in the HPI Past Medical History Past Medical History: Cancer, GERD/Reflux, Hypertension Additional Past Medical History / Comment(s): History of high blood pressure. Newly dx. cancer-kidney, chronic cough, possible lung ca History of Any Multi-Drug Resistant Organisms: None Reported Past Surgical History: Orthopedic Surgery Additional Past Surgical History / Comment(s): left arm, bx. of R kidney, colonoscopy Past Anesthesia/Blood Transfusion Reactions: No Reported Reaction Past Psychological History: No Psychological Hx Reported Smoking Status: Never smoker Past Alcohol Use History: Occasional Past Drug Use History: Marijuana - Past Family History Mother Family Medical History: Hypertension Father Family Medical History: Cancer Additional Family Medical History / Comment(s): colon Medications and Allergies Home Medications Medication Instructions Recorded Confirmed Type Omeprazole 20 mg PO DAILY 09/07/21 12/11/22 History Hydrocortisone [Cortef] 5 mg PO HS 10/02/22 12/11/22 History Hydrocortisone [Cortef] 10 mg PO BID@0900,1500 10/02/22 12/11/22 History Levothyroxine Sodium [Synthroid] 100 mcg PO DAILY 10/02/22 12/11/22 History Ondansetron Odt [Zofran ODT] 4 mg PO Q8HR PRN 10/02/22 12/11/22 History Prochlorperazine [Compazine] 10 mg PO QID PRN 10/11/22 12/11/22 History Megestrol [Megace] 400 mg PO DAILY #14 ml 10/13/22 12/11/22 Rx Tivozanib HCl [Fotivda] 1.34 mg PO DIRECTED 11/21/22 12/11/22 History Acetaminophen Tab [Tylenol] 650 mg PO Q6HR PRN tab 11/24/22 12/11/22 Rx Furosemide [Lasix] 20 mg PO DAILY 30 Days #30 tab 11/24/22 12/11/22 Rx Benzonatate [Tessalon Perles] 100 mg PO TID PRN 12/11/22 12/11/22 History traMADol HCL 50 mg PO Q8H PRN 12/11/22 12/11/22 History Allergies Allergy/AdvReac Type Severity Reaction Status Date / Time No Known Allergies Allergy Verified 12/11/22 20:30 Physical Exam Vitals: Vital Signs Temp Pulse Pulse Resp BP BP Pulse Ox 12/12/22 08:00 97.6 F 116 H 18 120/89 92 L 12/12/22 04:50 112 H 18 124/99 97 12/12/22 01:00 111 H 18 102/69 95 12/11/22 23:29 96 18 91/62 12/11/22 20:30 97.5 F L 61 18 100/69 98 Intake and Output 12/11/22 12/12/22 12/12/22 22:59 06:59 14:59 Other: Voiding Method Urinal Weight 65.771 kg - Constitutional General appearance: no acute distress, thin - EENT Eyes: anicteric sclerae, EOMI ENT: hearing grossly normal - Respiratory Respiratory: bilateral: diminished (L>R) - Cardiovascular tachycardic Rhythm: regular Heart sounds: normal: S1, S2 Abnormal Heart Sounds: no systolic murmur, no diastolic murmur, no rub, no S3 Gallop, no S4 Gallop, no click, no other - Gastrointestinal General gastrointestinal: soft, no tenderness - Integumentary Integumentary: no cyanotic - Musculoskeletal Musculoskeletal: generalized weakness, strength equal bilaterally - Psychiatric Alert and orientated, but is having some confused speech during exam. No slurred speech noted Results CBC & Chem 7: 12/11/22 20:50 12/12/22 14:16 Labs: Abnormal Lab Results - Last 24 Hours (Table) 12/11/22 12/11/22 12/11/22 Range/Units 20:50 20:50 20:50 MCHC 30.3 L (31.0-37.0) g/dL RDW 17.4 H (11.5-15.5) % Plt Count 592 H (150-450) k/uL Neutrophils # 8.8 H (1.3-7.7) k/uL Lymphocytes # 0.9 L (1.0-4.8) k/uL PT 12.1 H (9.0-12.0) sec INR 1.2 H (<1.2) Sodium 131 L (137-145) mmol/L Carbon Dioxide 17 L (22-30) mmol/L BUN 21 H (9-20) mg/dL Glucose 117 H (74-99) mg/dL Plasma Lactic Acid Garret (0.7-2.0) mmol/L Calcium 11.3 H (8.4-10.2) mg/dL Albumin 3.1 L (3.5-5.0) g/dL 12/11/22 12/12/22 12/12/22 Range/Units 20:50 00:32 03:59 MCHC (31.0-37.0) g/dL RDW (11.5-15.5) % Plt Count (150-450) k/uL Neutrophils # (1.3-7.7) k/uL Lymphocytes # (1.0-4.8) k/uL PT (9.0-12.0) sec INR (<1.2) Sodium (137-145) mmol/L Carbon Dioxide (22-30) mmol/L BUN (9-20) mg/dL Glucose (74-99) mg/dL Plasma Lactic Acid Garret 3.9 H* 3.2 H* 2.3 H* (0.7-2.0) mmol/L Calcium (8.4-10.2) mg/dL Albumin (3.5-5.0) g/dL Comments: chest US reviewed Chest x-ray: report reviewed Assessment and Plan (1) Bilateral pleural effusion Current Visit: Yes Status: Acute Priority: High Code(s): J90 - PLEURAL EFFUSION, NOT ELSEWHERE CLASSIFIED SNOMED Code(s): 896442010 (2) Generalized weakness Current Visit: Yes Status: Acute Priority: High Code(s): R53.1 - WEAKNESS SNOMED Code(s): 22968729 (3) Hypercalcemia Current Visit: Yes Status: Acute Priority: High Code(s): E83.52 - HYPERCALCEMIA SNOMED Code(s): 98214693 (4) Renal cell adenocarcinoma Current Visit: Yes Status: Chronic Priority: High Code(s): C64.9 - MALIGNANT NEOPLASM OF UNSP KIDNEY, EXCEPT RENAL PELVIS SNOMED Code(s): 369202631 Plan: Hypercalcemia of malignancy -Corrected calcium 12.0. Admitted last month for the same. Calcium in clinic on 12/07 was 9.1 -Will administer one dose of pamidronate and start IV fluids at 100cc/h -Calcium ordered for the a.m. -Will continue to monitor Pleural effusion/SOB: -Upon admission chest x-ray revealed moderate left and small right pleural effusions. Mild pulmonary vascular congestion. Ultrasound chest revealed left pleural effusion. -Pulmonary consulted with plan for thoracentesis, pending US. Will request cytology on pleural fluid -Cardiology consulted, Echo ordered Metastatic renal cell carcinoma to the lungs -Currently on treatment with tivozanib, days 1-21 every 28 days -Hold tivozanib while inpatient -Plan was for repeat CT CAP on 01/04 for evaluation of treatment response. Due to concern for disease progression with progressing symptoms will order CT CAP inpt -Will plan for f/u upon discharge. If CT reveals disease progression, will have to further discuss goals of care with pt and family, as pt has progressed on multiple treatment regimens and his performance status has continued to decline. If cytology is positive for malignancy can request NGS to see if any targetable mutations are present. Will further discuss with patient and family, pending CT scan results attests: I have seen and examined patient, performed H&P, developed impression and plan of care. Discussed with dictator. Agree with documentation, dictated as a scribe
[2022-12-12 19:54] LABS: Appearance,Urine Clear (Clear); Bilirubin,Urine Negative (Negative); Blood,Urine Large (Negative); Color,Urine Yellow; Glucose,Urine (UA) Negative (Negative); Ketones,Urine Negative (Negative); Leukocyte Esterase,Urine Negative (Negative); Mucus,Urine Rare /hpf; Nitrite,Urine Negative (Negative); PH, Urine 5.5 (5.0-8.0); Protein,Urine 1+ (Negative); RBC,Urine 3 /hpf (0-5); Specific Gravity,Urine 1.026 (1.001-1.035); Squamous Epithelial Cell,Urine <1 /hpf (0-4); Urobilinogen,Urine <2.0 mg/dL (<2.0); WBC,Urine 2 /hpf (0-5)
[2022-12-12 20:14] LABS: LDH, Body Fluid Source Pleural Fluid; T. Protein, Body Fluid Source Pleural Fluid; Total Protein, Body Fluid 3160 mg/dL
--- NOTE | 2022-12-12 21:04 | P.HPIM ---
History of Present Illness H&P Date: 12/12/22 Chief Complaint: Shortness of breath Patient is a 62-year-old male with a past medical history of renal cell carcinoma, metastatic diagnosed in September 2021, currently on tivozanib since October 2022, history of hospitalization for hypercalcemia in November presents to ER with complaints of cough congestion and shortness of breath. Patient has been having fatigue and decreased appetite unable to tolerate oral diet. Patient has been having symptoms for the past 4 to 5 days. Denies any abdominal pain. No nausea vomiting or diarrhea. Denies any fever or chills. Cough with mainly clear sputum production. Chest x-ray on admission showed moderate left and small right pleural effusions. Mild pulmonary vascular congestion. Correlate for congestive heart failure. Large hiatal hernia. Laboratory data showed WBC 10.4 hemoglobin 13.0 and platelets 592 Sodium 131 potassium 5.0 chloride 99 bicarb is 17 BUN 21 and creatinine 0.97 and blood sugar 117. Lactic acid 3.9 and calcium 11.3 proBNP 2020 and troponin x1 negative. Liver enzymes are not elevated. Albumin 3.1. Review of Systems Constitutional: Patient denies any fever or chills . Generalized weakness and fatigue and decreased appetite.. Abdomen: Patient denied any nausea or vomiting or abd. pain Cardiovascular: Patient denies any chest pain. Patient does have short of breath no palpitations. Respiratory: patient does have cough with clear sputum production. Does have shortness of breath Neurologic: Patient denied any numbness or tingling headache. Musculoskeletal: Patient denies any complaints of joint swelling or deformity. Complete review of systems could not be obtained from the patient. Past Medical History Past Medical History: Cancer, GERD/Reflux, Hypertension Additional Past Medical History / Comment(s): History of high blood pressure. Newly dx. cancer-kidney, chronic cough, possible lung ca History of Any Multi-Drug Resistant Organisms: None Reported Past Surgical History: Orthopedic Surgery Additional Past Surgical History / Comment(s): left arm, bx. of R kidney, colonoscopy Past Anesthesia/Blood Transfusion Reactions: No Reported Reaction Past Psychological History: No Psychological Hx Reported Smoking Status: Never smoker Past Alcohol Use History: Occasional Past Drug Use History: Marijuana - Past Family History Mother Family Medical History: Hypertension Father Family Medical History: Cancer Additional Family Medical History / Comment(s): colon Medications and Allergies Home Medications Medication Instructions Recorded Confirmed Type Omeprazole 20 mg PO DAILY 09/07/21 12/11/22 History Hydrocortisone [Cortef] 5 mg PO HS 10/02/22 12/11/22 History Hydrocortisone [Cortef] 10 mg PO BID@0900,1500 10/02/22 12/11/22 History Levothyroxine Sodium [Synthroid] 100 mcg PO DAILY 10/02/22 12/11/22 History Ondansetron Odt [Zofran ODT] 4 mg PO Q8HR PRN 10/02/22 12/11/22 History Prochlorperazine [Compazine] 10 mg PO QID PRN 10/11/22 12/11/22 History Megestrol [Megace] 400 mg PO DAILY #14 ml 10/13/22 12/11/22 Rx Tivozanib HCl [Fotivda] 1.34 mg PO DIRECTED 11/21/22 12/11/22 History Acetaminophen Tab [Tylenol] 650 mg PO Q6HR PRN tab 11/24/22 12/11/22 Rx Furosemide [Lasix] 20 mg PO DAILY 30 Days #30 tab 11/24/22 12/11/22 Rx Benzonatate [Tessalon Perles] 100 mg PO TID PRN 12/11/22 12/11/22 History traMADol HCL 50 mg PO Q8H PRN 12/11/22 12/11/22 History Allergies Allergy/AdvReac Type Severity Reaction Status Date / Time No Known Allergies Allergy Verified 12/11/22 20:30 Physical Exam Vitals: Vital Signs Temp Pulse Resp BP Pulse Ox 12/12/22 04:50 112 H 18 124/99 97 12/12/22 01:00 111 H 18 102/69 95 12/11/22 23:29 96 18 91/62 12/11/22 20:30 97.5 F L 61 18 100/69 98 Intake and Output 12/11/22 12/12/22 12/12/22 22:59 06:59 14:59 Other: Weight 65.771 kg PHYSICAL EXAMINATION: Patient is lying in the bed , no acute distress, awake alert and oriented but lethargic and weak, cachectic... HEENT: Normocephalic. Neck is supple. Pupils reactive. Nostrils clear. Oral cavity is dry. Neck reveals no JVD, carotid bruits, or thyromegaly. CHEST EXAMINATION: Trachea is central. Symmetrical expansion. Diminished left basilar sounds. No wheezing. Nonlabored breathing.. CARDIAC: Normal S1, S2 with no gallops. No murmurs ABDOMEN: Soft. Bowel sounds present. Nontender. No organomegaly. No abdominal bruits. Extremities: reveal no edema. No clubbing or cyanosis Neurologically awake, alert, oriented x2-3. Able to move extremities while in bed. No gross focal deficits noted Skin: No rash or skin lesions. Psychiatric: Coperative. Could not be assessed completely. Musculoskeletal: No joint swelling or deformity. Results CBC & Chem 7: 12/11/22 20:50 12/12/22 14:16 Labs: Abnormal Lab Results - Last 24 Hours (Table) 12/11/22 12/11/22 12/11/22 Range/Units 20:50 20:50 20:50 MCHC 30.3 L (31.0-37.0) g/dL RDW 17.4 H (11.5-15.5) % Plt Count 592 H (150-450) k/uL Neutrophils # 8.8 H (1.3-7.7) k/uL Lymphocytes # 0.9 L (1.0-4.8) k/uL PT 12.1 H (9.0-12.0) sec INR 1.2 H (<1.2) Sodium 131 L (137-145) mmol/L Carbon Dioxide 17 L (22-30) mmol/L BUN 21 H (9-20) mg/dL Glucose 117 H (74-99) mg/dL Plasma Lactic Acid Garret (0.7-2.0) mmol/L Calcium 11.3 H (8.4-10.2) mg/dL Albumin 3.1 L (3.5-5.0) g/dL 12/11/22 12/12/22 12/12/22 Range/Units 20:50 00:32 03:59 MCHC (31.0-37.0) g/dL RDW (11.5-15.5) % Plt Count (150-450) k/uL Neutrophils # (1.3-7.7) k/uL Lymphocytes # (1.0-4.8) k/uL PT (9.0-12.0) sec INR (<1.2) Sodium (137-145) mmol/L Carbon Dioxide (22-30) mmol/L BUN (9-20) mg/dL Glucose (74-99) mg/dL Plasma Lactic Acid Garret 3.9 H* 3.2 H* 2.3 H* (0.7-2.0) mmol/L Calcium (8.4-10.2) mg/dL Albumin (3.5-5.0) g/dL Thrombosis Risk Factor Assmnt - DVT/VTE Prophylaxis DVT/VTE Prophylaxis: Pharmacologic Prophylaxis ordered Assessment and Plan Assessment: Cough congestion and shortness of breath due to Bilateral pleural effusion. Moderate left and small right pleural effusion. Likely malignant effusion. 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 Hypovolemic hyponatremia AGMA Lactic acidosis on admission likely due to decreased tissue perfusion. Hypertension GERD Large hiatal hernia History of adrenal insufficiency Severe protein calorie malnutrition DVT prophylaxis with Lovenox subcu Plan: Patient will be continued on IV hydration with normal saline. Was given a dose of pamidronate due to diabetes related hypercalcemia. Pulmonary was consulted for possible left thoracentesis and echocardiogram was ordered to assess for left ventricular systolic function. Encourage oral intake. Nutrition service consult for calorie count. Follow-up sodium level. Urine sodium, osmolality and protein and creatinine levels were ordered. Pulmonary, cardiology and oncology was consulted. Continue to follow closely. Discussed with patient's in detail at bedside. Time with Patient: Greater than 30
[2022-12-12 21:53] LABS: Appearance,BF Bloody (Clear)
--- NOTE | 2022-12-12 21:56 | OP ---
OPERATIVE REPORT DATE OF SERVICE : PROCEDURE PERFORMED: Left-sided thoracentesis. PREOPERATIVE DIAGNOSIS: Left pleural effusion. POSTOPERATIVE DIAGNOSIS: Left pleural effusion. ANESTHESIA USED: 2 mL of 1% lidocaine. DESCRIPTION OF PROCEDURE: The patient was placed in a sitting upright position, the area of the left chest below the scapula was prepared in a sterile fashion and drapes were applied. At the level of the 8th intercostal space and tip of the scapula where the marking was placed prior to this procedure, the area was locally anesthetized with lidocaine. Then, a 26-gauge needle was inserted at the same site advanced into the pleural space until the fluid was localized with the needle. Then, a small tiny incision was made and a standard 9- Slovenian thoracentesis catheter and needle used, advanced into the pleural space. Fluid was obtained and as soon as the fluid was obtained, the catheter was advanced over the needle into the pleural space and the needle was pulled out of the pleural space. Freely flowing fluid was removed, roughly 1150 mL of serosanguineous fluid was removed from the left pleural space. The procedure was well tolerated, chest x-ray showed no complications. Fluid was sent for different diagnostic studies. MMODL / IJN: [id number] /
[2022-12-13] MEDS: LEVOTHYROXINE 100 MCG TAB PO SCH (05:41)
[2022-12-13] MEDS: ENOXAPARIN 30 MG/0.3 ML SYRINGE SQ SCH (09:09)
[2022-12-13] MEDS: PANTOPRAZOLE 40 MG TABLET PO SCH (09:09)
[2022-12-13] MEDS: BENZONATATE 100 MG CAP PO SCH ×3 (09:09→22:48)
[2022-12-13] MEDS: HYDROCORTISONE 10 MG TAB PO SCH ×3 (09:09→22:48)
[2022-12-13] MEDS: SODIUM CHLORIDE 0.9% 1,000 ML IV SCH ×3 (09:10→23:01)
[2022-12-13] MEDS: MEGESTROL 400 MG/10 ML CUP PO SCH (09:10)
[2022-12-13 09:25] LABS: ALT 12 U/L (4-49); AST 27 U/L (17-59); African American GFR (CKD) >90 (>60 ml/min/1.73 sqM); Albumin 2.3 g/dL (3.5-5.0); Albumin/Globulin Ratio 0.9; Alkaline Phosphatase 71 U/L (38-126); Anion Gap 9 mmol/L; Blood Urea Nitrogen 14 mg/dL (9-20); Calcium 10.8 mg/dL (8.4-10.2); Carbon Dioxide 19 mmol/L (22-30); Chloride 99 mmol/L (98-107); Globulin 2.7 g/dL; Glucose 99 mg/dL (74-99); Non-African American GFR(CKD) >90 (>60 ml/min/1.73 sqM); Phosphorus 2.9 mg/dL (2.5-4.5); Potassium 4.2 mmol/L (3.5-5.1); Sodium 127 mmol/L (137-145); Total Bilirubin 0.6 mg/dL (0.2-1.3)
[2022-12-13 09:36] LABS: Anisocytosis Slight; Basophils % (A) 0 %; Eosinophils # (A) 0.1 k/uL (0-0.7); Eosinophils % (A) 1 %; HCT 39.4 % (39.0-53.0); HGB 12.1 gm/dL (13.0-17.5); Hypochromasia Marked; Lymphocytes # (A) 0.5 k/uL (1.0-4.8); Lymphocytes % (A) 6 %; MCH 26.5 pg (25.0-35.0); MCHC 30.7 g/dL (31.0-37.0); MCV 86.3 fL (80.0-100.0); Mean Platelet Volume 7.1; Monocytes # (A) 0.5 k/uL (0-1.0); Monocytes % (A) 5 %; Neutrophils # (A) 7.9 k/uL (1.3-7.7); Neutrophils % (A) 86 %; Platelet Count 354 k/uL (150-450); RBC 4.56 m/uL (4.30-5.90); RDW 17.5 % (11.5-15.5); WBC 9.1 k/uL (3.8-10.6)
[2022-12-13 10:38] LABS: Creatinine,Urine Random 98.9 mg/dL (39.0-259.0)
[2022-12-13] MEDS ORDERED: CALCITONIN INJ 200 UNIT/ML (MDV) VIAL SQ ONE (10:52)
--- NOTE | 2022-12-13 12:02 | P.PN ---
Subjective Progress Note Date: 12/13/22 I am seeing this patient in consultation today 12/12/2022 in the emergency room in regard to exertional dyspnea and bilateral pleural effusions. Patient is a 62-year-old white male with past medical history significant for metastatic renal cell carcinoma with progression to the lungs and mediastinum, hyp ertension, GERD, hiatal hernia. Patient presented to emergency room last night complaining of generalized weakness. Patient does follow with Dr. French from oncology. He has not been eating or drinking much over the last week. He also admits to exertional dyspnea and a persistent nonproductive cough. Denies any fevers, chills, myalgias, sputum production, hemoptysis. Denies sick contacts. Denies any chest pain, heart palpitations, lower extremity swelling, orthopnea. Patient is currently sitting up in bed, on room air, in no acute distress. He is emaciated. He does have a dry nonproductive persistent cough. Chest x-ray on arrival showed mild pulmonary vascular congestion and moderate left and small right pleural effusions. There was a large hiatal hernia. No focal infiltrates or evidence of pneumonia. Patient denies any previous thoracentesis. CBC on arrival was unremarkable. BMP on arrival shows sodium 131, potassium 5, chloride 99, serum bicarb 17, BUN 21, creatinine 0.97, glucose 117. Lactic acid level was 3.9 now down to 2.3. Afebrile. Normal saline is infusing at 75 ML's per hour. Troponin less than 0.012. NT proBNP 2020. Patient is hemodynamically stable. The patient is seen today 12/13/2022 in follow-up on the regular medical floor. He is currently resting in bedside. Awake and alert in no acute distress. He denies any worsening shortness of breath, cough or congestion. He is maintaining O2 saturations in the 90s on room air. He's afebrile. White count 9.1. Hemoglobin 12.1. Platelets 354. Sodium 127. Potassium 4.2. Bicarb 19. BUN 14. Creatinine 0.76. Apparently remains on normal saline at 100 ML's per hour. Lovenox for DVT prophylaxis. Protonix for GI prophylaxis. Megace to improve his appetite. Computed tomography scan of the chest abdomen and pelvis reveals progression of disease with increasing size of the right renal mass with new and enlarged liver metastatic foci, new retroperitoneal lymph nodes, new pulmonary nodules with new loculated pleural effusions, new mediastinal lymphadenopathy. Cyanosis is suspicious lucent area with an L1 vertebral body may represent osseous metastatic disease. Left upper lobe airspace consolidation which could be partially due to obstruction concerning for infectious/inflammatory process with postobstructive etiology given narrowing of the left main bronchus. He is also noted large hiatal hernia containing loop of stomach. He did undergo a left-sided thoracentesis yesterday with 1150 ML's of serosanguineous fluid removed. Pleural fluid analysis appears exudate with a protein of 3.1. Cytology pending. Objective - Vital Signs Vital signs: Vital Signs Temp 98.9 F 12/13/22 07:45 Pulse 102 H 12/13/22 07:45 Resp 17 12/13/22 07:45 BP 103/69 12/13/22 07:45 Pulse Ox 93 L 12/13/22 07:45 FiO2 Intake & Output 12/12/22 12/13/22 12/13/22 18:59 06:59 18:59 Output Total 450 Balance -450 Weight 65.771 kg Output: Urine 450 Straight 450 Other: Voiding Method Urinal # Bowel Movements 1 - Exam GENERAL EXAM: Alert, very weak 62-year-old male, appears cachectic, fairly comfortable in no apparent distress. HEAD: Normocephalic and atraumatic EYES: Normal reaction of pupils, equal size. NOSE: Clear with pink turbinates. THROAT: No erythema or exudates. NECK: No masses, no JVD. CHEST: No chest wall deformity. LUNGS: Diminished left lower lung sounds. No wheezes, rhonchi, crackles. On room air. CVS: S1 and S2 normal with no audible murmur, regular rhythm. No extra heart sounds ABDOMEN: No hepatosplenomegaly, active bowel sounds, no guarding or rigidity. SPINE: No scoliosis or deformity SKIN: No rashes CENTRAL NERVOUS SYSTEM: No focal deficits, tone is normal in all 4 extremities. EXTREMITIES: There is no peripheral edema, clubbing, or cyanosis. Peripheral pulses are intact. - Labs CBC & Chem 7: 12/13/22 08:50 12/13/22 08:50 Labs: Abnormal Lab Results - Last 24 Hours (Table) 12/12/22 12/12/22 12/12/22 Range/Units 14:16 15:30 18:55 Hgb (13.0-17.5) gm/dL MCHC (31.0-37.0) g/dL RDW (11.5-15.5) % Neutrophils # (1.3-7.7) k/uL Lymphocytes # (1.0-4.8) k/uL Sodium 126 L (137-145) mmol/L Carbon Dioxide 18 L (22-30) mmol/L Glucose 100 H (74-99) mg/dL Calcium 10.8 H (8.4-10.2) mg/dL Total Protein 5.1 L (6.3-8.2) g/dL Albumin 2.3 L (3.5-5.0) g/dL Urine Protein 1+ H (Negative) Urine Blood Large H (Negative) Urine Mucus Rare H (None) /hpf U Random Total Protein (0.0-13.5) mg/dL Ur Random Sodium (40-220) mmol/L Fluid Appearance Bloody A (Clear) 12/13/22 12/13/22 12/13/22 Range/Units 06:00 06:00 08:50 Hgb 12.1 L (13.0-17.5) gm/dL MCHC 30.7 L (31.0-37.0) g/dL RDW 17.5 H (11.5-15.5) % Neutrophils # 7.9 H (1.3-7.7) k/uL Lymphocytes # 0.5 L (1.0-4.8) k/uL Sodium (137-145) mmol/L Carbon Dioxide (22-30) mmol/L Glucose (74-99) mg/dL Calcium (8.4-10.2) mg/dL Total Protein (6.3-8.2) g/dL Albumin (3.5-5.0) g/dL Urine Protein (Negative) Urine Blood (Negative) Urine Mucus (None) /hpf U Random Total Protein 62.0 H (0.0-13.5) mg/dL Ur Random Sodium 30 L (40-220) mmol/L Fluid Appearance (Clear) 12/13/22 Range/Units 08:50 Hgb (13.0-17.5) gm/dL MCHC (31.0-37.0) g/dL RDW (11.5-15.5) % Neutrophils # (1.3-7.7) k/uL Lymphocytes # (1.0-4.8) k/uL Sodium 127 L (137-145) mmol/L Carbon Dioxide 19 L (22-30) mmol/L Glucose (74-99) mg/dL Calcium 10.8 H (8.4-10.2) mg/dL Total Protein 5.0 L (6.3-8.2) g/dL Albumin 2.3 L (3.5-5.0) g/dL Urine Protein (Negative) Urine Blood (Negative) Urine Mucus (None) /hpf U Random Total Protein (0.0-13.5) mg/dL Ur Random Sodium (40-220) mmol/L Fluid Appearance (Clear) Microbiology - Last 24 Hours (Table) 12/12/22 15:30 Gram Stain - Preliminary Pleural Fluid Assessment and Plan Assessment: Dyspnea, secondary to moderate left and small right pleural effusions. Status post left-sided thoracentesis on 12/12/2022 with 1500 ML's of serosanguineous fluid removed. Protein 3.1. Cytology pending. Renal cell carcinoma with known metastasis to lungs and mediastinum. Currently on Fotivda. However, computed tomography scan of the chest abdomen pelvis from 12/12/2022 revealed progression of disease with increasing size of the right renal mass with new and enlarged liver metastatic foci, new retroperitoneal lymph nodes, new pulmonary nodules with new loculated pleural effusions, new mediastinal lymphadenopathy. Cyanosis is suspicious lucent area with an L1 vertebral body may represent osseous metastatic disease. Left upper lobe airspace consolidation which could be partially due to obstruction concerning for infectious/inflammatory process with postobstructive etiology given narrowing of the left main bronchus. Generalized weakness due to metastatic renal cell carcinoma Severe protein calorie malnutrition, secondary to above Hyponatremia secondary to above Metabolic anion gap acidosis, secondary to lactic acidosis History of adrenal insufficiency Benign essential hypertension Anemia of chronic disease GERD without esophagitis Large hiatal hernia Plan: The patient was seen and evaluated Computed tomography scan of the chest, labs, medications reviewed CT is showing progression of disease Patient is currently on room air Status post left-sided thoracentesis Cytology pending Overall prognosis remains quite poor Oncology is following We will continue to follow I have personally seen and examined the patient, performed the documentation and the assessment and plan as written. Number of minutes spent on the visit: 10.
[2022-12-13] MEDS: MORPHINE SULFATE 4 MG/ML SYRINGE IV PRN (13:45)
--- NOTE | 2022-12-13 13:45 | P.PN ---
Subjective Patient is a 62-year-old male with a past medical history of renal cell carcinoma, metastatic diagnosed in September 2021, currently on tivozanib since A ugust 2022, history of hospitalization for hypercalcemia in November presents to ER with complaints of cough congestion and shortness of breath. Patient has been having fatigue and decreased appetite unable to tolerate oral diet. Patient has been having symptoms for the past 4 to 5 days. Denies any abdominal pain. No nausea vomiting or diarrhea. Denies any fever or chills. Cough with mainly clear sputum production. Chest x-ray on admission showed moderate left and small right pleural effusions. Mild pulmonary vascular congestion. Correlate for congestive heart failure. Large hiatal hernia. Laboratory data showed WBC 10.4 hemoglobin 13.0 and platelets 592 Sodium 131 potassium 5.0 chloride 99 bicarb is 17 BUN 21 and creatinine 0.97 and blood sugar 117. Lactic acid 3.9 and calcium 11.3 proBNP 2020 and troponin x1 negative. Liver enzymes are not elevated. Albumin 3.1. Objective - Vital Signs Vital signs: Vital Signs Temp 97.8 F 12/13/22 12:00 Pulse 105 H 12/13/22 12:00 Resp 21 12/13/22 12:00 BP 107/72 12/13/22 12:00 Pulse Ox 91 L 12/13/22 12:00 FiO2 Intake & Output 12/12/22 12/13/22 12/13/22 18:59 06:59 18:59 Output Total 450 Balance -450 Weight 65.771 kg 65.771 kg Output: Urine 450 Straight 450 Other: Voiding Method Urinal Urinal # Bowel Movements 1 - Exam -GENERAL: The patient is alert and oriented x2-3, patient confused, follows simple commands but not all the time, not in any acute distress. Well developed, well nourished. Generally weak and cachectic HEENT: Pupils are round and equally reacting to light. EOMI. No scleral icterus. No conjunctival pallor. Normocephalic, atraumatic. No pharyngeal erythema. No thyromegaly. CARDIOVASCULAR: S1 and S2 present. No murmurs, rubs, or gallops. PULMONARY: Chest is clear to auscultation, no wheezing , no crackles. ABDOMEN: Soft, nontender, nondistended, normoactive bowel sounds. No palpable organomegaly. MUSCULOSKELETAL: No joint swelling or deformity. EXTREMITIES: No cyanosis, clubbing, or pedal edema. NEUROLOGICAL: Gross neurological examination did not reveal any focal deficits. SKIN: No rashes. no petechiae. - Labs CBC & Chem 7: 12/13/22 08:50 12/13/22 08:50 Labs: Abnormal Lab Results - Last 24 Hours (Table) 12/12/22 12/12/22 12/12/22 Range/Units 14:16 15:30 18:55 Hgb (13.0-17.5) gm/dL MCHC (31.0-37.0) g/dL RDW (11.5-15.5) % Neutrophils # (1.3-7.7) k/uL Lymphocytes # (1.0-4.8) k/uL Sodium 126 L (137-145) mmol/L Carbon Dioxide 18 L (22-30) mmol/L Glucose 100 H (74-99) mg/dL Calcium 10.8 H (8.4-10.2) mg/dL Total Protein 5.1 L (6.3-8.2) g/dL Albumin 2.3 L (3.5-5.0) g/dL Urine Protein 1+ H (Negative) Urine Blood Large H (Negative) Urine Mucus Rare H (None) /hpf U Random Total Protein (0.0-13.5) mg/dL Ur Random Sodium (40-220) mmol/L Fluid Appearance Bloody A (Clear) 12/13/22 12/13/22 12/13/22 Range/Units 06:00 06:00 08:50 Hgb 12.1 L (13.0-17.5) gm/dL MCHC 30.7 L (31.0-37.0) g/dL RDW 17.5 H (11.5-15.5) % Neutrophils # 7.9 H (1.3-7.7) k/uL Lymphocytes # 0.5 L (1.0-4.8) k/uL Sodium (137-145) mmol/L Carbon Dioxide (22-30) mmol/L Glucose (74-99) mg/dL Calcium (8.4-10.2) mg/dL Total Protein (6.3-8.2) g/dL Albumin (3.5-5.0) g/dL Urine Protein (Negative) Urine Blood (Negative) Urine Mucus (None) /hpf U Random Total Protein 62.0 H (0.0-13.5) mg/dL Ur Random Sodium 30 L (40-220) mmol/L Fluid Appearance (Clear) 12/13/22 Range/Units 08:50 Hgb (13.0-17.5) gm/dL MCHC (31.0-37.0) g/dL RDW (11.5-15.5) % Neutrophils # (1.3-7.7) k/uL Lymphocytes # (1.0-4.8) k/uL Sodium 127 L (137-145) mmol/L Carbon Dioxide 19 L (22-30) mmol/L Glucose (74-99) mg/dL Calcium 10.8 H (8.4-10.2) mg/dL Total Protein 5.0 L (6.3-8.2) g/dL Albumin 2.3 L (3.5-5.0) g/dL Urine Protein (Negative) Urine Blood (Negative) Urine Mucus (None) /hpf U Random Total Protein (0.0-13.5) mg/dL Ur Random Sodium (40-220) mmol/L Fluid Appearance (Clear) Microbiology - Last 24 Hours (Table) 12/12/22 15:30 Gram Stain - Preliminary Pleural Fluid Assessment and Plan Assessment: Bilateral pleural effusion. Moderate left and small right pleural effusion. Likely malignant effusion. 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 Hypovolemic hyponatremia AGMA Lactic acidosis on admission likely due to decreased tissue perfusion. Hypertension GERD Large hiatal hernia History of adrenal insufficiency Severe protein calorie malnutrition Plan: IV hydration on hold due to fluid overload in the lung. Status post Lua tone and 1 Dietary consult Pulmonary team consult Follow-up pleural fluid cytology Management of chemotherapeutic agent per hematology/oncology team on on the case. Labs and medication were reviewed.. Continue same treatment. Continue with symptomatic treatment. Resume home medication. Monitor labs and vitals. DVT and GI prophylaxis. Further recommendations as per clinical course of the patient DVT prophylaxis: Subcutaneous Lovenox GI Prophylaxis: Ppi Prognosis is guarded
--- NOTE | 2022-12-13 20:21 | P.PN ---
Subjective Progress Note Date: 12/13/22 Principal diagnosis: RCC, pleural effusions, confusion At today's visit patient is somnolent, but arousable to verbal stimuli. Patient is answering questions appropriately. Patient's states that patient has been confused today and is disorientated to place. Spouse states since he had the thoracentesis his cough has decreased and he is able to lay flat without having shortness of breath. Patient denies pain. Denies nausea or vomiting, although appetite is diminished Objective - Vital Signs Vital signs: Vital Signs Temp 97.8 F 12/13/22 12:00 Pulse 105 H 12/13/22 12:00 Resp 21 12/13/22 12:00 BP 107/72 12/13/22 12:00 Pulse Ox 91 L 12/13/22 12:00 FiO2 Intake & Output 12/12/22 12/13/22 12/13/22 18:59 06:59 18:59 Output Total 450 Balance -450 Weight 65.771 kg 65 kg Output: Urine 450 Straight 450 Other: Voiding Method Urinal Urinal # Bowel Movements 1 - Constitutional General appearance: Present: average body habitus, no acute distress - EENT Eyes: Present: anicteric sclerae, EOMI ENT: Present: hearing grossly normal - Respiratory Details: breathing is even and unlabored - Cardiovascular Details: skin warm and dry - Integumentary Integumentary: Absent: cyanotic - Neurologic Neurologic Comment(s): somnolent - Musculoskeletal Musculoskeletal: Present: generalized weakness - Labs CBC & Chem 7: 12/13/22 08:50 12/13/22 08:50 Labs: Abnormal Lab Results - Last 24 Hours (Table) 12/12/22 12/12/22 12/13/22 Range/Units 15:30 18:55 06:00 Hgb (13.0-17.5) gm/dL MCHC (31.0-37.0) g/dL RDW (11.5-15.5) % Neutrophils # (1.3-7.7) k/uL Lymphocytes # (1.0-4.8) k/uL Sodium (137-145) mmol/L Carbon Dioxide (22-30) mmol/L Calcium (8.4-10.2) mg/dL Total Protein (6.3-8.2) g/dL Albumin (3.5-5.0) g/dL Urine Protein 1+ H (Negative) Urine Blood Large H (Negative) Urine Mucus Rare H (None) /hpf U Random Total Protein 62.0 H (0.0-13.5) mg/dL Ur Random Sodium (40-220) mmol/L Fluid Appearance Bloody A (Clear) 12/13/22 12/13/22 12/13/22 Range/Units 06:00 08:50 08:50 Hgb 12.1 L (13.0-17.5) gm/dL MCHC 30.7 L (31.0-37.0) g/dL RDW 17.5 H (11.5-15.5) % Neutrophils # 7.9 H (1.3-7.7) k/uL Lymphocytes # 0.5 L (1.0-4.8) k/uL Sodium 127 L (137-145) mmol/L Carbon Dioxide 19 L (22-30) mmol/L Calcium 10.8 H (8.4-10.2) mg/dL Total Protein 5.0 L (6.3-8.2) g/dL Albumin 2.3 L (3.5-5.0) g/dL Urine Protein (Negative) Urine Blood (Negative) Urine Mucus (None) /hpf U Random Total Protein (0.0-13.5) mg/dL Ur Random Sodium 30 L (40-220) mmol/L Fluid Appearance (Clear) Microbiology - Last 24 Hours (Table) 12/12/22 15:30 Gram Stain - Preliminary Pleural Fluid - Imaging and Cardiology Chest x-ray: report reviewed CT scan - abdomen: report reviewed CT scan - chest: report reviewed CT scan - pelvis: report reviewed Assessment and Plan (1) Bilateral pleural effusion Current Visit: Yes Status: Acute Priority: High Code(s): J90 - PLEURAL EFFUSION, NOT ELSEWHERE CLASSIFIED SNOMED Code(s): 612232626 (2) Generalized weakness Current Visit: Yes Status: Acute Priority: High Code(s): R53.1 - WEAKNESS SNOMED Code(s): 85820523 (3) Hypercalcemia Current Visit: Yes Status: Acute Priority: High Code(s): E83.52 - HYPERCALCEMIA SNOMED Code(s): 40345768 (4) Renal cell adenocarcinoma Current Visit: Yes Status: Chronic Priority: High Code(s): C64.9 - MALIGNANT NEOPLASM OF UNSP KIDNEY, EXCEPT RENAL PELVIS SNOMED Code(s): 378787703 Plan: Hypercalcemia of malignancy -Corrected calcium 12.0 upon admission. Admitted last month for the same. Calcium in clinic on 12/07 was 9.1 -S/p one dose of pamidronate. Continues on IV hydration -Corrected calcium 12.2 today. 1 dose Calcitonin ordered. IV hydration increased to 125cc/hr -Repeat calcium in the morning. Will continue to monitor Pleural effusion/SOB: -Upon admission chest x-ray revealed moderate left and small right pleural effusions and mild pulmonary vascular congestion. Ultrasound chest revealed left pleural effusion. -Pulmonary consulted. S/p thoracentesis. 1150cc removed. Reports improvement in symptoms. Cytology and culture pending. -Cardiology consulted. Echo ordered, report pending Metastatic renal cell carcinoma: -Currently on treatment with tivozanib, days 1-21 every 28 days -Plan was for repeat CT CAP on 01/04 for evaluation of treatment response. Due to concern for disease progression with progressing symptoms, CT CAP ordered. -Unfortunately, CT revealed progression of disease with increasing size of right renal mass with new and enlarging liver metastatic foci, new retroperitoneal lymph nodes, new pulmonary nodules with new loculated pleural effusions, new mediastinal lymphadenopathy, and subtle suspicious lucent area within the L1 v ertebral body. Results were discussed in detail with spouse today. -Due to progression of disease Tivozanib will be stopped -Discussed with spouse that pt has progressed on multiple treatment regimens and his performance status has continued to decline over the last couple months with multiple hospital admissions. And unfortunately any further treatment would likely cause more adverse side effects than any meaningful beneficial outcome and that comfort care measures may have to be considered. Further discussed that if cytology is positive for malignancy we can request NGS and PD-L1 to see if any targetable mutations are present, and that we can can continue to monitor his progress through this hospitalization and upon discharge, and follow up in clinic to further discuss goals of care and possible treatment options pending testing if condition improves. was agreeable with this plan, and requested a family meeting in the morning with her daughters present to discuss todays findings. Family meeting scheduled for the morning with Dr. French
[2022-12-14] MEDS: LEVOTHYROXINE 100 MCG TAB PO SCH (05:38)
[2022-12-14] MEDS: BENZONATATE 100 MG CAP PO SCH ×3 (07:56→20:57)
[2022-12-14] MEDS: HYDROCORTISONE 10 MG TAB PO SCH ×3 (07:56→20:56)
[2022-12-14] MEDS: PANTOPRAZOLE 40 MG TABLET PO SCH (07:57)
[2022-12-14] MEDS: ENOXAPARIN 30 MG/0.3 ML SYRINGE SQ SCH (07:57)
[2022-12-14] MEDS: MEGESTROL 400 MG/10 ML CUP PO SCH (07:57)
--- NOTE | 2022-12-14 09:48 | CA ---
Transthoracic Echo Report Name: Paul Bailey Age: 62 Gender: M : 1960 Exam Date: 12/12/2022 14:53 Exam Location: [facility] Ht (in): 72 Wt (lb): 145 Ordering Physician: Shanae Crawford Attending/Referring Phys: [id number], Ty [employer] Gray Geronimo Procedure CPT: Indications: LV function, pleural effusions Cardiac Hx: Technical Quality: Fair Contrast 1: Total Dose (mL): Contrast 2: Total Dose (mL): MEASUREMENTS (Male / Female) Normal Values 2D ECHO LV Diastolic Diameter PLAX 3.7 cm 4.2 - 5.9 / 3.9 - 5.3 cm LV Systolic Diameter PLAX 2.6 cm IVS Diastolic Thickness 1.2 cm 0.6 - 1.0 / 0.6 - 0.9 cm LVPW Diastolic Thickness 1.2 cm 0.6 - 1.0 / 0.6 - 0.9 cm LV Relative Wall Thickness 0.6 RV Internal Dim ED PLAX 3.2 cm LVOT Diameter 2.4 cm Aortic Root Diameter 3.5 cm LA Systolic Diameter LX 2.5 cm 3.0 - 4.0 / 2.7 - 3.8 cm LV Diastolic Volume MOD BP 82.6 cm??? 67 - 155 / 56 - 104 cm??? LV Systolic Volume MOD BP 27.9 cm??? 22 - 58 / 19 - 49 cm??? LV Ejection Fraction MOD BP 66.2 % >= 55 % LV Cardiac Index MOD BP 3609.8 cm???/min???m??? LV Diastolic Volume MOD 4C 56.5 cm??? LV Systolic Volume MOD 4C 21.6 cm??? LV Ejection Fraction MOD 4C 61.8 % LV Cardiac Index MOD 4C 2303.7 cm???/min???m??? LV Diastolic Length 4C 6.6 cm LV Systolic Length 4C 5.6 cm LV Diastolic Volume MOD 2C 98.3 cm??? LV Systolic Volume MOD 2C 27.7 cm??? LV Ejection Fraction MOD 2C 71.8 % LV Cardiac Index MOD 2C 4659.5 cm???/min???m??? LV Diastolic Length 2C 8.2 cm LV Systolic Length 2C 7.4 cm LA Volume 38.2 cm??? 18 - 58 / 22 - 52 cm??? LA Volume Index 21.0 cm???/m??? 16 - 28 cm???/m??? DOPPLER AV Peak Velocity 176.5 cm/s AV Peak Gradient 12.5 mmHg LVOT Peak Velocity 140.2 cm/s LVOT Peak Gradient 7.9 mmHg LVOT Velocity Time Integral 20.6 cm LVOT Stroke Volume 92.4 cm??? LVOT Stroke Volume Index 49.7 ml/m??? LVOT Cardiac Index 6100.3 cm???/min???m??? AV Area Cont Eq pk 3.6 cm??? Mitral E Point Velocity 79.4 cm/s Mitral A Point Velocity 79.9 cm/s Mitral E to A Ratio 1.0 MV Deceleration Time 95.0 ms MV E' Velocity 8.8 cm/s Mitral E to MV E' Ratio 9.0 TR Peak Velocity 377.2 cm/s TR Peak Gradient 56.9 mmHg Right Ventricular Systolic Press 61.9 mmHg FINDINGS Left Ventricle Normal LV size. Mild concentric LVH. Left ventricular ejection fraction is estimated at 55-60_ %. Right Ventricle Normal right ventricular size. RVSP= 57mmHg. Right Atrium Normal right atrial size. Left Atrium Normal left atrial size. Mitral Valve Structurally normal mitral valve. Trace MR. Aortic Valve Trileaflet aortic valve. Tricuspid Valve Structurally normal tricuspid valve. Mild to moderate TR. Pulmonic Valve Pulmonic valve not well visualized. Trace PI. Pericardium Normal pericardium. Aorta Normal size aortic root. CONCLUSIONS Dynamic LV ejection fraction greater than 60% No pericardial effusion, Previewed by: Dr. Popeye Little MD (Electronically Signed) Final Date: 14 December 2022 09:47
[2022-12-14 10:25] LABS: ALT 12 U/L (4-49); AST 27 U/L (17-59); African American GFR (CKD) >90 (>60 ml/min/1.73 sqM); Albumin 2.3 g/dL (3.5-5.0); Albumin/Globulin Ratio 0.8; Alkaline Phosphatase 65 U/L (38-126); Anion Gap 12 mmol/L; Blood Urea Nitrogen 11 mg/dL (9-20); Calcium 10.5 mg/dL (8.4-10.2); Carbon Dioxide 18 mmol/L (22-30); Chloride 103 mmol/L (98-107); Globulin 2.8 g/dL; Glucose 95 mg/dL (74-99); Non-African American GFR(CKD) >90 (>60 ml/min/1.73 sqM); Potassium 4.4 mmol/L (3.5-5.1); Sodium 133 mmol/L (137-145); Total Bilirubin 0.6 mg/dL (0.2-1.3); Total Protein 5.1 g/dL (6.3-8.2)
[2022-12-14] MEDS: MORPHINE SULFATE 4 MG/ML SYRINGE IV PRN ×2 (10:32→15:53)
[2022-12-14] MEDS: SODIUM CHLORIDE 0.9% 1,000 ML IV SCH ×2 (10:38→18:34)
--- NOTE | 2022-12-14 12:39 | P.PN ---
Subjective Progress Note Date: 12/14/22 I am seeing this patient in consultation today 12/12/2022 in the emergency room in regard to exertional dyspnea and bilateral pleural effusions. Patient is a 62-year-old white male with past medical history significant for metastatic renal cell carcinoma with progression to the lungs and mediastinum, hyp ertension, GERD, hiatal hernia. Patient presented to emergency room last night complaining of generalized weakness. Patient does follow with Dr. French from oncology. He has not been eating or drinking much over the last week. He also admits to exertional dyspnea and a persistent nonproductive cough. Denies any fevers, chills, myalgias, sputum production, hemoptysis. Denies sick contacts. Denies any chest pain, heart palpitations, lower extremity swelling, orthopnea. Patient is currently sitting up in bed, on room air, in no acute distress. He is emaciated. He does have a dry nonproductive persistent cough. Chest x-ray on arrival showed mild pulmonary vascular congestion and moderate left and small right pleural effusions. There was a large hiatal hernia. No focal infiltrates or evidence of pneumonia. Patient denies any previous thoracentesis. CBC on arrival was unremarkable. BMP on arrival shows sodium 131, potassium 5, chloride 99, serum bicarb 17, BUN 21, creatinine 0.97, glucose 117. Lactic acid level was 3.9 now down to 2.3. Afebrile. Normal saline is infusing at 75 ML's per hour. Troponin less than 0.012. NT proBNP 2020. Patient is hemodynamically stable. The patient is seen today 12/13/2022 in follow-up on the regular medical floor. He is currently resting in bedside. Awake and alert in no acute distress. He denies any worsening shortness of breath, cough or congestion. He is maintaining O2 saturations in the 90s on room air. He's afebrile. White count 9.1. Hemoglobin 12.1. Platelets 354. Sodium 127. Potassium 4.2. Bicarb 19. BUN 14. Creatinine 0.76. Apparently remains on normal saline at 100 ML's per hour. Lovenox for DVT prophylaxis. Protonix for GI prophylaxis. Megace to improve his appetite. Computed tomography scan of the chest abdomen and pelvis reveals progression of disease with increasing size of the right renal mass with new and enlarged liver metastatic foci, new retroperitoneal lymph nodes, new pulmonary nodules with new loculated pleural effusions, new mediastinal lymphadenopathy. Cyanosis is suspicious lucent area with an L1 vertebral body may represent osseous metastatic disease. Left upper lobe airspace consolidation which could be partially due to obstruction concerning for infectious/inflammatory process with postobstructive etiology given narrowing of the left main bronchus. He is also noted large hiatal hernia containing loop of stomach. He did undergo a left-sided thoracentesis yesterday with 1150 ML's of serosanguineous fluid removed. Pleural fluid analysis appears exudate with a protein of 3.1. Cytology pending. The patient is seen today 12/14/2022 in follow-up on the regular medical floor. He is currently resting in bed. He is awake. Quite weak and debilitated. He is able to state he is in the hospital. He does state its the year 2022. He has been having some episodes of confusion. He does continue to maintain O2 saturations in the 90s on room air. He's afebrile. Hemodynamically stable. Pleural fluid pathology still pending. Cultures revealing no growth. Sodium 133. Potassium 4.4. Bicarb 18. BUN 11. Creatinine 0.67. He remains on Lovenox for DVT prophylaxis. Objective - Vital Signs Vital signs: Vital Signs Temp 97.8 F 12/14/22 07:30 Pulse 105 H 12/14/22 08:50 Resp 16 12/14/22 08:50 BP 110/74 12/14/22 07:30 Pulse Ox 97 12/14/22 07:30 FiO2 Intake & Output 12/13/22 12/14/22 12/14/22 18:59 06:59 18:59 Intake Total 0 Output Total 1605 1130 Balance -1605 -1130 Weight 65 kg Intake: Oral 0 Output: Urine 1605 1130 Other: Voiding Method Urinal Urinal Urinal - Exam GENERAL EXAM: Alert, confused at times, weak 62-year-old male, cachectic, fairly comfortable in no apparent distress. HEAD: Normocephalic and atraumatic EYES: Normal reaction of pupils, equal size. NOSE: Clear with pink turbinates. THROAT: No erythema or exudates. NECK: No masses, no JVD. CHEST: No chest wall deformity. LUNGS: Diminished left lower lung sounds. No wheezes, rhonchi, crackles. On room air. CVS: S1 and S2 normal with no audible murmur, regular rhythm. No extra heart sounds ABDOMEN: No hepatosplenomegaly, active bowel sounds, no guarding or rigidity. SPINE: No scoliosis or deformity SKIN: No rashes CENTRAL NERVOUS SYSTEM: No focal deficits, tone is normal in all 4 extremities. EXTREMITIES: There is no peripheral edema, clubbing, or cyanosis. Peripheral pulses are intact. - Labs CBC & Chem 7: 12/13/22 08:50 12/14/22 09:41 Labs: Abnormal Lab Results - Last 24 Hours (Table) 12/14/22 Range/Units 09:41 Sodium 133 L (137-145) mmol/L Carbon Dioxide 18 L (22-30) mmol/L Calcium 10.5 H (8.4-10.2) mg/dL Total Protein 5.1 L (6.3-8.2) g/dL Albumin 2.3 L (3.5-5.0) g/dL Microbiology - Last 24 Hours (Table) 12/12/22 15:30 Acid Fast Bacilli Smear - Preliminary Pleural Fluid 12/12/22 15:30 Gram Stain - Preliminary Pleural Fluid Body Fluid Culture - Preliminary Assessment and Plan Assessment: Dyspnea, secondary to moderate left and small right pleural effusions. Status post left-sided thoracentesis on 12/12/2022 with 1500 ML's of serosanguineous fluid removed. Protein 3.1. Cytology pending. Renal cell carcinoma with known metastasis to lungs and mediastinum. Currently on Fotivda. However, computed tomography scan of the chest abdomen pelvis from 12/12/2022 revealed progression of disease with increasing size of the right renal mass with new and enlarged liver metastatic foci, new retroperitoneal lymph nodes, new pulmonary nodules with new loculated pleural effusions, new mediastinal lymphadenopathy. Subtle suspicious lucent area with an L1 vertebral body may represent osseous metastatic disease. Left upper lobe airspace consolidation which could be partially due to obstruction concerning for infectious/inflammatory process with postobstructive etiology given narrowing of the left main bronchus. Generalized weakness due to metastatic renal cell carcinoma Severe protein calorie malnutrition, secondary to above Hyponatremia secondary to above, improving Metabolic anion gap acidosis, secondary to lactic acidosis History of adrenal insufficiency Benign essential hypertension Anemia of chronic disease GERD without esophagitis Large hiatal hernia Plan: The patient was seen and evaluated Labs, medications reviewed Currently on room air Cytology pending Overall prognosis remains quite poor DO NOT RESUSCITATE/DO NOT INTUBATE CODE STATUS We will continue to follow I have personally seen and examined the patient, performed the documentation and the assessment and plan as written. Number of minutes spent on the visit: 10.
--- NOTE | 2022-12-14 14:00 | P.PN ---
Subjective Progress Note Date: 12/14/22 Principal diagnosis: RCC, pleural effusions, confusion Family Meeting held today with Dr. Lacey French. At today's visit patient is still somewhat lethargic, but is more alert. Patient is alert to person and place. Spouse states since he had the thoracentesis his cough has decreased and he is able to lay flat without having shortness of breath. Patient denies pain. Denies vomiting but experienced nausea with breakfast this morning. Appetite is quite diminished Objective - Vital Signs Vital signs: Vital Signs Temp 97.8 F 12/14/22 07:30 Pulse 105 H 12/14/22 08:50 Resp 16 12/14/22 08:50 BP 110/74 12/14/22 07:30 Pulse Ox 97 12/14/22 07:30 FiO2 Intake & Output 12/13/22 12/14/22 12/14/22 18:59 06:59 18:59 Intake Total 0 Output Total 1605 1130 Balance -1605 -1130 Weight 65 kg Intake: Oral 0 Output: Urine 1605 1130 Other: Voiding Method Urinal Urinal Urinal - Constitutional General appearance: Present: no acute distress, thin - Respiratory Details: breathing is even and unlabored - Cardiovascular Details: skin warm and dry - Integumentary Integumentary: Absent: cyanotic - Neurologic Neurologic Comment(s): lethargic - Musculoskeletal Musculoskeletal: Present: generalized weakness - Labs CBC & Chem 7: 12/13/22 08:50 12/14/22 09:41 Labs: Abnormal Lab Results - Last 24 Hours (Table) 12/14/22 Range/Units 09:41 Sodium 133 L (137-145) mmol/L Carbon Dioxide 18 L (22-30) mmol/L Calcium 10.5 H (8.4-10.2) mg/dL Total Protein 5.1 L (6.3-8.2) g/dL Albumin 2.3 L (3.5-5.0) g/dL Microbiology - Last 24 Hours (Table) 12/12/22 15:30 Acid Fast Bacilli Smear - Preliminary Pleural Fluid 12/12/22 15:30 Gram Stain - Preliminary Pleural Fluid Body Fluid Culture - Preliminary Assessment and Plan (1) Bilateral pleural effusion Current Visit: Yes Status: Acute Priority: High Code(s): J90 - PLEURAL EFFUSION, NOT ELSEWHERE CLASSIFIED SNOMED Code(s): 937144437 (2) Generalized weakness Current Visit: Yes Status: Acute Priority: High Code(s): R53.1 - WEAKNESS SNOMED Code(s): 43440886 (3) Hypercalcemia Current Visit: Yes Status: Acute Priority: High Code(s): E83.52 - HYPERCALCEMIA SNOMED Code(s): 16285550 (4) Renal cell adenocarcinoma Current Visit: Yes Status: Chronic Priority: High Code(s): C64.9 - MALIGNANT NEOPLASM OF UNSP KIDNEY, EXCEPT RENAL PELVIS SNOMED Code(s): 619331845 Plan: Hypercalcemia of malignancy -Corrected calcium 12.0 upon admission. Admitted last month for the same. Calcium in clinic on 12/07 was 9.1 -S/p one dose of pamidronate and calcitonin. Continues on IV hydration -Corrected calcium 11.9 today Pleural effusion/SOB: -Upon admission chest x-ray revealed moderate left and small right pleural effusions and mild pulmonary vascular congestion. Ultrasound chest revealed left pleural effusion. -Pulmonary consulted. S/p thoracentesis. 1150cc removed. Reports improvement in symptoms. Pleural fluid culture negative thus far. Cytology pending. -Cardiology consulted. Echo revealed EF greater than 60%, no pericardial effusion noted Metastatic renal cell carcinoma: -Currently on treatment with tivozanib, days 1-21 every 28 days -Plan was for repeat CT CAP on 01/04 for evaluation of treatment response. Due to concern for disease progression with progressing symptoms, CT CAP ordered. -Unfortunately, CT revealed progression of disease with increasing size of right renal mass with new and enlarging liver metastatic foci, new retroperitoneal lymph nodes, new pulmonary nodules with new loculated pleural effusions, new mediastinal lymphadenopathy, and subtle suspicious lucent area within the L1 vertebral body. -Due to progression of disease Tivozanib will be stopped Family meeting was held today with Dr. French. Scan results were discussed with family and that pt has progressed on multiple treatment regimens and his performance status has continued to decline over the last couple months with multiple hospital admissions. And unfortunately any further treatment would likely cause more adverse side effects than any meaningful beneficial outcome and that due to his poor PS, he would not be a candidate for treatment at this time, and that unfortunately due to his disease state his condition will continue to decline. Comfort care measures were discussed with family. We recommended that care at this point should be focused on making the patient comfortable and treating symptoms. Spouse and children were in agreement and would like patient to be placed in hospice care. Hospice consult has been placed. CODE STATUS was also addressed with spouse. She stated that patient would not want to have CPR or intubation if there was to be no likely beneficial or meaningful outcome. Spouse stated she would like to update CODE STATUS to no cod e. Code status has been updated in chart and primary RN made aware. Family verbalized concern for recurrent pleural effusion and did not want patient to have increasing ASHLEY and discomfort. IR consult was placed for palliative pigtail cath so this can managed in hospice, however IR stated that surgery needs to be consulted for procedure. Consult has been placed to cardiothoracic surgery for pigtail eval. attests: I have seen and examined patient, performed H&P, developed impression and plan of care. Discussed with dictator. Agree with documentation, dictated as a scribe Time with Patient: Greater than 30
[2022-12-15] MEDS: SODIUM CHLORIDE 0.9% 1,000 ML IV SCH (03:30)
[2022-12-15] MEDS: LEVOTHYROXINE 100 MCG TAB PO SCH (06:06)
[2022-12-15] MEDS: MEGESTROL 400 MG/10 ML CUP PO SCH (09:32)
[2022-12-15] MEDS: PANTOPRAZOLE 40 MG TABLET PO SCH (09:35)
[2022-12-15] MEDS: HYDROCORTISONE 10 MG TAB PO SCH (09:35)
[2022-12-15] MEDS: BENZONATATE 100 MG CAP PO SCH (09:35)
[2022-12-15] MEDS: MORPHINE SULFATE 4 MG/ML SYRINGE IV PRN (10:44)
[2022-12-15] MEDS ORDERED: PROMETHAZINE 25 MG TAB PO PRN (12:07)
[2022-12-15] MEDS ORDERED: PROMETHAZINE 25 MG TAB PO STA (12:07)
[2022-12-15 13:26] VITALS: BP 84/59; PULSE 115; RESP 22; TEMP 97.5
[2022-12-15] MEDS ORDERED: LORazepam 2 MG/ML INJ IV ONE (14:00)
[2022-12-15 14:36] VITALS: BMI 19.4
--- NOTE | 2022-12-15 14:53 | P.PN ---
Subjective Progress Note Date: 12/15/22 I am seeing this patient in consultation today 12/12/2022 in the emergency room in regard to exertional dyspnea and bilateral pleural effusions. Patient is a 62-year-old white male with past medical history significant for metastatic renal cell carcinoma with progression to the lungs and mediastinum, hyp ertension, GERD, hiatal hernia. Patient presented to emergency room last night complaining of generalized weakness. Patient does follow with Dr. French from oncology. He has not been eating or drinking much over the last week. He also admits to exertional dyspnea and a persistent nonproductive cough. Denies any fevers, chills, myalgias, sputum production, hemoptysis. Denies sick contacts. Denies any chest pain, heart palpitations, lower extremity swelling, orthopnea. Patient is currently sitting up in bed, on room air, in no acute distress. He is emaciated. He does have a dry nonproductive persistent cough. Chest x-ray on arrival showed mild pulmonary vascular congestion and moderate left and small right pleural effusions. There was a large hiatal hernia. No focal infiltrates or evidence of pneumonia. Patient denies any previous thoracentesis. CBC on arrival was unremarkable. BMP on arrival shows sodium 131, potassium 5, chloride 99, serum bicarb 17, BUN 21, creatinine 0.97, glucose 117. Lactic acid level was 3.9 now down to 2.3. Afebrile. Normal saline is infusing at 75 ML's per hour. Troponin less than 0.012. NT proBNP 2020. Patient is hemodynamically stable. The patient is seen today 12/13/2022 in follow-up on the regular medical floor. He is currently resting in bedside. Awake and alert in no acute distress. He denies any worsening shortness of breath, cough or congestion. He is maintaining O2 saturations in the 90s on room air. He's afebrile. White count 9.1. Hemoglobin 12.1. Platelets 354. Sodium 127. Potassium 4.2. Bicarb 19. BUN 14. Creatinine 0.76. Apparently remains on normal saline at 100 ML's per hour. Lovenox for DVT prophylaxis. Protonix for GI prophylaxis. Megace to improve his appetite. Computed tomography scan of the chest abdomen and pelvis reveals progression of disease with increasing size of the right renal mass with new and enlarged liver metastatic foci, new retroperitoneal lymph nodes, new pulmonary nodules with new loculated pleural effusions, new mediastinal lymphadenopathy. Cyanosis is suspicious lucent area with an L1 vertebral body may represent osseous metastatic disease. Left upper lobe airspace consolidation which could be partially due to obstruction concerning for infectious/inflammatory process with postobstructive etiology given narrowing of the left main bronchus. He is also noted large hiatal hernia containing loop of stomach. He did undergo a left-sided thoracentesis yesterday with 1150 ML's of serosanguineous fluid removed. Pleural fluid analysis appears exudate with a protein of 3.1. Cytology pending. The patient is seen today 12/14/2022 in follow-up on the regular medical floor. He is currently resting in bed. He is awake. Quite weak and debilitated. He is able to state he is in the hospital. He does state its the year 2022. He has been having some episodes of confusion. He does continue to maintain O2 saturations in the 90s on room air. He's afebrile. Hemodynamically stable. Pleural fluid pathology still pending. Cultures revealing no growth. Sodium 133. Potassium 4.4. Bicarb 18. BUN 11. Creatinine 0.67. He remains on Lovenox for DVT prophylaxis. The patient is seen today 12/15/2022 in follow-up on the regular medical floor. He is resting in bed. He is awake and alert currently. Very weak and debilitated. He is maintaining O2 saturations in the 90s on room air. He's been afebrile. Pathology from pleural fluid did not reveal any evidence of malignancy. Interventional radiology was unable to place a pleural catheter today. The plan is for discharge to the [facility]. Objective - Vital Signs Vital signs: Vital Signs Temp 97.5 F L 12/15/22 13:15 Pulse 115 H 12/15/22 13:15 Resp 22 12/15/22 13:15 BP 84/59 12/15/22 13:15 Pulse Ox 92 L 12/15/22 13:15 FiO2 Intake & Output 12/14/22 12/15/22 12/15/22 18:59 06:59 18:59 Intake Total 0 Output Total 500 250 Balance -500 -250 Weight 65 kg Intake: Oral 0 Output: Urine 500 250 Other: Voiding Method Urinal Urinal Indwelling Catheter - Exam GENERAL EXAM: Alert, confused at times, weak, [id number] male, fairly comfortable in no apparent distress. HEAD: Normocephalic and atraumatic EYES: Normal reaction of pupils, equal size. NOSE: Clear with pink turbinates. THROAT: No erythema or exudates. NECK: No masses, no JVD. CHEST: No chest wall deformity. LUNGS: Diminished left lower lung sounds. No wheezes, rhonchi, crackles. On room air. CVS: S1 and S2 normal with no audible murmur, regular rhythm. No extra heart sounds ABDOMEN: No hepatosplenomegaly, active bowel sounds, no guarding or rigidity. SPINE: No scoliosis or deformity SKIN: No rashes CENTRAL NERVOUS SYSTEM: No focal deficits, tone is normal in all 4 extremities. EXTREMITIES: There is no peripheral edema, clubbing, or cyanosis. Peripheral pulses are intact. - Labs CBC & Chem 7: 12/13/22 08:50 12/14/22 09:41 Labs: Microbiology - Last 24 Hours (Table) 12/12/22 15:30 Gram Stain - Preliminary Pleural Fluid Body Fluid Culture - Preliminary Assessment and Plan Assessment: Dyspnea, secondary to moderate left and small right pleural effusions. Status post left-sided thoracentesis on 12/12/2022 with 1500 ML's of serosanguineous fluid removed. Protein 3.1. Cytology revealed no malignancy. Renal cell carcinoma with known metastasis to lungs and mediastinum. Currently on Fotivda. However, computed tomography scan of the chest abdomen pelvis from 12/12/2022 revealed progression of disease with increasing size of the right renal mass with new and enlarged liver metastatic foci, new retroperitoneal lymph nodes, new pulmonary nodules with new loculated pleural effusions, new mediastinal lymphadenopathy. Subtle suspicious lucent area with an L1 vertebral body may represent osseous metastatic disease. Left upper lobe airspace consolidation which could be partially due to obstruction concerning for infectious/inflammatory process with postobstructive etiology given narrowing of the left main bronchus. Generalized weakness due to metastatic renal cell carcinoma Severe protein calorie malnutrition, secondary to above Hyponatremia secondary to above, improving Metabolic anion gap acidosis, secondary to lactic acidosis History of adrenal insufficiency Benign essential hypertension Anemia of chronic disease GERD without esophagitis Large hiatal hernia Plan: The patient was seen and evaluated Medications reviewed Currently on room air Overall prognosis remains quite poor The plan now is for discharge to hosp[facility] in [place] I have personally seen and examined the patient, performed the documentation and the assessment and plan as written. Number of minutes spent on the visit: 10.
--- NOTE | 2022-12-15 22:26 | P.PN ---
Subjective Patient is a 62-year-old male with a past medical history of renal cell carcinoma, metastatic diagnosed in September 2021, currently on tivozanib since A ugust 2022, history of hospitalization for hypercalcemia in November presents to ER with complaints of cough congestion and shortness of breath. Patient has been having fatigue and decreased appetite unable to tolerate oral diet. Patient has been having symptoms for the past 4 to 5 days. Denies any abdominal pain. No nausea vomiting or diarrhea. Denies any fever or chills. Cough with mainly clear sputum production. Chest x-ray on admission showed moderate left and small right pleural effusions. Mild pulmonary vascular congestion. Correlate for congestive heart failure. Large hiatal hernia. Laboratory data showed WBC 10.4 hemoglobin 13.0 and platelets 592 Sodium 131 potassium 5.0 chloride 99 bicarb is 17 BUN 21 and creatinine 0.97 and blood sugar 117. Lactic acid 3.9 and calcium 11.3 proBNP 2020 and troponin x1 negative. Liver enzymes are not elevated. Albumin 3.1. 12/14/2022 Patient remains confused cachectic note eating well and not improving much. Oncology team had a meeting with the family and decision was to pursue with hospice care and more palliative approach of treatment given his advanced metastatic disease. Plan per recommendation of oncology team is to obtain a chest tube tomorrow with cardiothoracic surgical team before is going to be discharged with hospice. Objective - Vital Signs Vital signs: Vital Signs Temp 97.8 F 12/14/22 07:30 Pulse 105 H 12/14/22 07:30 Resp 16 12/14/22 07:30 BP 110/74 12/14/22 07:30 Pulse Ox 97 12/14/22 07:30 FiO2 Intake & Output 12/13/22 12/14/22 12/14/22 18:59 06:59 18:59 Intake Total 0 Output Total 1605 1130 Balance -1605 -1130 Weight 65 kg Intake: Oral 0 Output: Urine 1605 1130 Other: Voiding Method Urinal Urinal - Exam -GENERAL: The patient is alert and oriented x2-3, patient confused, follows simple commands but not all the time, not in any acute distress. Well developed, well nourished. Generally weak and cachectic HEENT: Pupils are round and equally reacting to light. EOMI. No scleral icterus. No conjunctival pallor. Normocephalic, atraumatic. No pharyngeal erythema. No thyromegaly. CARDIOVASCULAR: S1 and S2 present. No murmurs, rubs, or gallops. PULMONARY: Chest is clear to auscultation, no wheezing , no crackles. ABDOMEN: Soft, nontender, nondistended, normoactive bowel sounds. No palpable organomegaly. MUSCULOSKELETAL: No joint swelling or deformity. EXTREMITIES: No cyanosis, clubbing, or pedal edema. NEUROLOGICAL: Gross neurological examination did not reveal any focal deficits. SKIN: No rashes. no petechiae. - Labs CBC & Chem 7: 12/13/22 08:50 12/14/22 09:41 Labs: Abnormal Lab Results - Last 24 Hours (Table) 12/13/22 12/13/22 12/14/22 Range/Units 06:00 06:00 09:41 Sodium 133 L (137-145) mmol/L Carbon Dioxide 18 L (22-30) mmol/L Calcium 10.5 H (8.4-10.2) mg/dL Total Protein 5.1 L (6.3-8.2) g/dL Albumin 2.3 L (3.5-5.0) g/dL U Random Total Protein 62.0 H (0.0-13.5) mg/dL Ur Random Sodium 30 L (40-220) mmol/L Microbiology - Last 24 Hours (Table) 12/12/22 15:30 Acid Fast Bacilli Smear - Preliminary Pleural Fluid 12/12/22 15:30 Gram Stain - Preliminary Pleural Fluid Body Fluid Culture - Preliminary Assessment and Plan Assessment: Bilateral pleural effusion. Moderate left and small right pleural effusion. Likely malignant effusion. 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 Hypovolemic hyponatremia AGMA Lactic acidosis on admission likely due to decreased tissue perfusion. Hypertension GERD Large hiatal hernia History of adrenal insufficiency Severe protein calorie malnutrition Plan: Family decided to pursue with hospice care IV hydration on hold due to fluid overload in the lung. Status post Lua tone and 1 Dietary consult Pulmonary team consult Follow-up pleural fluid cytology Management of chemotherapeutic agent per hematology/oncology team on on the case. Labs and medication were reviewed.. Continue same treatment. Continue with symptomatic treatment. Resume home medication. Monitor labs and vitals. DVT and GI prophylaxis. Further recommendations as per clinical course of the patient DVT prophylaxis: Subcutaneous Lovenox GI Prophylaxis: Ppi Prognosis is guarded
--- NOTE | 2022-12-15 22:49 | P.DS ---
Providers Date of admission: 12/12/22 00:49 Attending physician: Timur Pereyra Consults: 12/12/22 00:49 Consult Physician Routine Consulting Provider: Toy French Consult Reason/Comments: known Do you want consulting provider notified?: Yes Consult Physician Urgent Consulting Provider: Erasmo Velasquez Consult Reason/Comments: effusion Do you want consulting provider notified?: Yes Primary care physician: Loco Ortiz Hospital Course: Diagnoses: Bilateral pleural effusion. Moderate left and small right pleural effusion. Likely malignant effusion. 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 Hypovolemic hyponatremia Metabolic/toxic encephalopathy Mild Lactic acidosis on admission likely due to decreased tissue perfusion. Hypertension GERD Large hiatal hernia History of adrenal insufficiency Severe protein calorie malnutrition Hospital course: Patient is a 62-year-old male with a past medical history of renal cell carcinoma, metastatic diagnosed in September 2021, currently on tivozanib since October 2022, history of hospitalization for hypercalcemia in November presents to ER with complaints of cough congestion and shortness of breath. Patient has been having fatigue and decreased appetite unable to tolerate oral diet. Patient has been having symptoms for the past 4 to 5 days. Chest x-ray on admission showed moderate left and small right pleural effusions. Mild pulmonary vascular congestion. Correlate for congestive heart failure. Large hiatal hernia. calcium 11.3 which is elevated related to his rectal cancer. Patient had a CAT scan showing bilateral pleural effusion and left upper lobe lung mass with necrosis 4 x 3.8 cm with a large right renal mass with new liver metastatic disease and possible osseous metastases to L1. Patient is followed closely by pulmonary team and hematology oncology cardiology. Patient continued to deteriorate despite treatment Oncology team had a meeting with the family and they decided to go with hospice care. Chest tube could not be placed by interventional radiologist today because patient was at the staple does not follow command. Patient is no code prognosis is very poor The plan now is for discharge to [facility] in [place] Patient was found stable and can be discharged home in guarded prognosis however he needs follow-up as an outpatient. Patient was instructed to follow up with PCP within one week and patient agrees Physical exam -Gen: patient is a confused and cachectic and generally weak. Answers to questions and does not follow commands CVS: S1-S2, RRR, no murmur Lungs: B/L CTA, no wheezing Abdomen: soft, no distention, no tenderness, positive bowel sounds Extremity: no leg edema or induration Time spent more than 35 minutes Patient Condition at Discharge: Fair Plan - Discharge Summary New Discharge Prescriptions: Continue Omeprazole 20 mg PO DAILY Ondansetron Odt [Zofran ODT] 4 mg PO Q8HR PRN PRN Reason: Nausea And Vomiting Levothyroxine Sodium [Synthroid] 100 mcg PO DAILY Hydrocortisone [Cortef] 10 mg PO BID@0900,1500 Hydrocortisone [Cortef] 5 mg PO HS Prochlorperazine [Compazine] 10 mg PO QID PRN PRN Reason: Nausea Tivozanib HCl [Fotivda] 1.34 mg PO DIRECTED Benzonatate [Tessalon Perles] 100 mg PO TID PRN PRN Reason: Cough Megestrol [Megace] 400 mg PO DAILY #14 ml Acetaminophen Tab [Tylenol] 650 mg PO Q6HR PRN tab PRN Reason: Mild Pain Or Fever > 100.5 traMADol HCL 50 mg PO Q8H PRN PRN Reason: Pain Discontinued Furosemide [Lasix] 20 mg PO DAILY 30 Days #30 tab Discharge Medication List Omeprazole 20 mg PO DAILY 09/07/21 [History] Hydrocortisone [Cortef] 5 mg PO HS 10/02/22 [History] Hydrocortisone [Cortef] 10 mg PO BID@0900,1500 10/02/22 [History] Levothyroxine Sodium [Synthroid] 100 mcg PO DAILY 10/02/22 [History] Ondansetron Odt [Zofran ODT] 4 mg PO Q8HR PRN 10/02/22 [History] Prochlorperazine [Compazine] 10 mg PO QID PRN 10/11/22 [History] Megestrol [Megace] 400 mg PO DAILY #14 ml 10/13/22 [Rx] Tivozanib HCl [Fotivda] 1.34 mg PO DIRECTED 11/21/22 [History] Acetaminophen Tab [Tylenol] 650 mg PO Q6HR PRN tab 11/24/22 [Rx] Benzonatate [Tessalon Perles] 100 mg PO TID PRN 12/11/22 [History] traMADol HCL 50 mg PO Q8H PRN 12/11/22 [History] Follow up Appointment(s)/Referral(s): Loco Ortiz MD [Primary Care Provider] - 1-2 days Toy French MD [STAFF PHYSICIAN] - 1 Week Discharge Disposition: DISCH TO [facility]
--- NOTE | 2022-12-18 20:12 | CDI ---
Documentation Clarification Form Date: 12/18/2022 07:55:29 PM From: Pavithra Muller Phone: Admit Date: 12/12/2022 12:49:00 AM Patient Name: Paul Bailey Visit Number: [id number] Discharge Date: 12/15/2022 03:10:00 PM ATTENTION: The Clinical Documentation Specialists (CDI) and [facility] Coding Staff appreciate your assistance in clarifying documentation. Please respond to the clarification below the line at the bottom and electronically sign. The CDI & [facility] Coding staff will review the response and follow-up if needed. Please note: Queries are made part of the Legal Health Record. If you have any questions, please contact the author of this message via ITS. Dr. Arias E Rommel Unspecified CKD is documented per Consult 12/12. Additional clarification regarding the stage of CKD is requested. History/Risk Factors: 62yo M, Clay malignant pleuraleffusion, hypercalcemiadue tometastaticlesions, renalcarcinomawithmets to lung, liver and bone, hypovolemic,hyponatremia, met/toxic encephalopathy, lactic acidosis, HTN, GERD, largehiatal hernia, adrenal insufficiency, severe PCM Clinical Indicators: BUN 21 AfAm >90 NonAf 83 Creatinine 0.97 Treatment: no treatment; discharged on Hospice Please clarify the stage of the CKD, if known: [ ] CKD Stage 1 (GFR > 90) [ ] CKD Stage 2 (GFR 60-89) [ ] Acute Kidney Failure [ ] Other, please specify [ ] Unable to determine (Template Last revised: April 2020) CKD Stage 1 (GFR > 90) MTDD
--- NOTE | 2022-12-18 20:14 | CDI ---
Documentation Clarification Form Date: 12/18/2022 07:05 PM From: Pavithra Muller Phone: Admit Date: 12/12/2022 12:49:00 AM Patient Name: Paul Bailey Visit Number: [id number] Discharge Date: 12/15/2022 03:10:00 PM ATTENTION: The Clinical Documentation Specialists (CDI) and [facility] Coding Staff appreciate your assistance in clarifying documentation. Please respond to the clarification below the line at the bottom and electronically sign. The CDI & [facility] Coding staff will review the response and follow-up if needed. Please note: Queries are made part of the Legal Health Record. If you have any questions, please contact the author of this message via ITS. Dr. Arias E Sheet Your patient has the documented diagnosis of unspecified CHF ED Note. Additional information regarding the acuity and type of CHF is requested. History/Risk Factors: 62yo M, Clay malignant pleuraleffusion, hypercalcemiadue tometslesions, renalcarcinomawithmets to lung, liver and bone, hypovolemic,hyponatremia, met/toxic encephalopathy, lactic acidosis, HTN, GERD, largehiatal hernia, adrenal insufficiency, severe PCM Clinical Indicators: VS/Pulse OX: 95-98 BNP: 2019 Echocardiogram Results: Dynamic LV ejection fraction greater than 60%. Nopericardial effusion Chest X Ray: Moderate LEFT and small RIGHTpleural effusions. Mild pulmonary vascularcongestion. Correlate forcongestive heart failure. Diffuse pleural parenchymal changes correlateCHFotherwise consider pneumonia. CXR 12/12 Treatment: IV hydration on hold due tofluid overloadin the lung. Status postCosta tone and 1. Pt d/c on Hospice In your professional opinion, can you please clarify the acuity and type of CHF if known? [ ] Acute Systolic Heart Failure (reduced EF) [ ] Chronic Systolic Heart Failure (reduced EF) [ ] Acute on Chronic Systolic Heart Failure (reduced EF) [ ] Acute Diastolic Heart Failure (preserved EF) [ ] Chronic Diastolic Heart Failure (preserved EF) [ ] Acute on Chronic Diastolic Heart Failure (preserved EF) [ ] Acute Systolic & Diastolic Heart Failure [ ] Chronic Systolic & Diastolic Heart Failure [ ] Acute on Chronic Heart Failure Systolic & Diastolic Heart Failure [ ] Other, please specify [ ] Unable to determine (Template Last Revised: April 2020) Acute Systolic Heart Failure (reduced EF) MTDD
== END 2022-12-15 15:10 | disposition hospice, inpatient (51) | DRG 180 ==
LOC: EC 20:08 → 4SSUR 12-12 00:49 → 5NMEDONC 12-12 18:37
PROVIDERS: ADMIT Hospitalist; ATTEND Hospitalist
PROC: 0W9B3ZZ Drainage of Left Pleural Cavity, Percutaneous Approach (ICD-10-PCS; principal; 2022-12-12)
DX: C78.02 Secondary malignant neoplasm of left lung (principal); E43 Unspecified severe protein-calorie malnutrition; G92.8 Other toxic encephalopathy; I50.21 Acute systolic (congestive) heart failure; R64 Cachexia; C78.1 Secondary malignant neoplasm of mediastinum; I13.0 Hypertensive heart and chronic kidney disease with heart failure and stage 1 through stage 4 chronic kidney disease, or unspecified chronic kidney disease; E27.40 Unspecified adrenocortical insufficiency; C78.7 Secondary malignant neoplasm of liver and intrahepatic bile duct; C64.1 Malignant neoplasm of right kidney, except renal pelvis; E87.20 Acidosis, unspecified; E87.1 Hypo-osmolality and hyponatremia; J91.0 Malignant pleural effusion; Z68.1 Body mass index [BMI] 19.9 or less, adult; C79.51 Secondary malignant neoplasm of bone; C78.01 Secondary malignant neoplasm of right lung; E11.22 Type 2 diabetes mellitus with diabetic chronic kidney disease; Z51.5 Encounter for palliative care; D63.1 Anemia in chronic kidney disease; E86.1 Hypovolemia; E86.0 Dehydration; N18.1 Chronic kidney disease, stage 1; E03.9 Hypothyroidism, unspecified; D50.9 Iron deficiency anemia, unspecified; E83.52 Hypercalcemia; K21.9 Gastro-esophageal reflux disease without esophagitis; K44.9 Diaphragmatic hernia without obstruction or gangrene; R05.3 Chronic cough; R53.81 Other malaise; R59.0 Localized enlarged lymph nodes; Z79.890 Hormone replacement therapy; Z79.899 Other long term (current) drug therapy
CPT/HCPCS: 36415; 71045; 71046; 71260; 74177; 76604; 80053; 81001; 82570; 83605; 83615; 83735; 83880; 83935; 84100; 84156; 84157; 84300; 84484; 85025; 85610; 85730; 87070; 87102; 87116; 87205; 87206; 87496; 87498; 87502; 87529; 87634; 87636; 87798; 88108; 88305; 88341; 88342; 89050; 93005; 93306; 96361; 96374; 99285